=== PATIENT | female | born 1995 | race Caucasian/White ===

== ENCOUNTER 2020-03-14 02:12 | Emergency (ER) | payer OTHER, SELFPAY ==
[2020-03-14 02:36] VITALS: BP 125/85; PULSE 81; RESP 16; TEMP 37.2; O2SAT 100; BMI 22.6
--- NOTE | 2020-03-14 02:38 | ED.CHESTPAIN ---
HPI - Chest Pain General Chief Complaint: Headache Stated Complaint: headache,chest pain Time Seen by Provider: 03/14/20 02:27 Source: patient Mode of arrival: ambulatory Limitations: no limitations History of Present Illness HPI narrative: 24 yo female on progestin only pills has had chest pain for 2 months with negative workup thus far, comes in today with c/o headache L side wrapping a band around to R side no neuro complaints, no fevers, no URI symptoms states the left side of her head hurts to touch MD complaint: chest pain and other (headache) Pertinent past history: other (chronic chest wall pain for months) Onset (ago): month(s) (+ months for chest pain, headache x 1 week) Timing of current episode: constant Prior episodes: Yes Onset: during rest and during exertion Pain location: substernal Pain radiation: none Severity: moderate Quality: aching Relieving factors: nothing Exacerbating factors: nothing Associated symptoms: other (c/o new headache) Treatment prior to arrival: none Related Data Allergies Allergy/AdvReac Type Severity Reaction Status Date / Time coconut [COCONUT] Allergy Unknown HIVES Verified 03/14/20 02:52 peanut [PEANUT] Allergy Unknown HIVES Verified 03/14/20 02:52 Review of Systems Review of Systems: Constitutional : No Weight loss, No Fever, No Chills ENT/Mouth : No sore throat, No Rhinorrhea Eyes: No Eye Pain, No Swelling Cardiovascular : pos Chest Pain, no SOB, no Dyspnea on Exertion, No Orthopnea, No Edema, No Palpitations Respiratory : No Cough, No Sputum Gastrointestinal : no Nausea, No Vomiting, No Diarrhea, No abdominal Pain, No Hematochezia, No Melena Genitourinary : No Dysuria, No Urinary Frequency Musculoskeletal : No joint pain, No Myalgias, No Joint Swelling Skin : No Skin Lesions, No rash Neuro : No Weakness, No Numbness, No Dizziness, pos Headache Psych : No Anxiety/Panic, No Depression Heme/Lymph: No Bruising, No Lymphadenopathy Endocrine : No Polyuria, No Polydipsia All other systems reviewed and are negative [facility] Past Medical History Attestation statement: The following information was validated with the patient. Medical History Chronic chest pain Social History Social History Alcohol intake: never Smoking Status: Never smoker Use of substances other than those prescribed or required for medical reasons: No Advance Directives: No Advance Directives Information Provided: No Physical Exam Vital Signs: Vital Signs: Last Vital Signs Temp 98.9 F 03/14/20 02:36 Pulse 81 03/14/20 02:36 Resp 16 03/14/20 02:36 BP 125/85 03/14/20 02:36 Pulse Ox 100 03/14/20 02:36 Body Mass Index 22.6 Appearance: Alert. Oriented X3. No acute distress. Eyes: Pupils equal, round and reactive to light. ENT: Pharynx normal. Neck: Normal inspection. Neck supple. CVS: Normal heart rate and rhythm. Pulses normal. Chest: ttp along bilateral costochondral junction Respiratory: No respiratory distress. Breath sounds normal. Abdomen: Soft and nontender. Skin: Skin warm and dry. Normal skin color. Normal skin turgor. Extremities: No lower extremity edema. No calf ttp Neuro: Oriented X 3. No motor deficit. No sensory deficit. Course Course Course Narrative: CT scan with abnormal reading - MRI ordered for 9am, signed out pending MRI, CP workup negative MDM - Chest Pain MDM Narrative Medical decision making narrative: 24 yo female with chronic chest wall pain on progestin only pills - MSK in nature, doubt ACS/dissection given duration and no risk factors, PERC negative as she is on progestin only and pain x 2 months, c/o headache x 1 week band like no deficits, no URI symptoms, no AC therapy, normal neuro exam, gradual onset doubt SAH/OVERSIZE LOAD PILOT ESCORT infection, labs, EKG, CT scan ordered, PO medications for symptom relief. Lab Data Labs: Lab Results 03/14/20 03/14/20 03/14/20 Range/Units 03:16 03:16 03:16 ESR 5 (0-20) MM/HR Hold Blue Top SEE NOTE Magnesium 1.9 (1.6-2.6) mg/dL Troponin I High Sens (<3.5-17.0) ng/L Urine Test (NEGATIVE) 03/14/20 03/14/20 Range/Units 03:16 03:16 ESR (0-20) MM/HR Hold Blue Top Magnesium (1.6-2.6) mg/dL Troponin I High Sens < 3.5 (<3.5-17.0) ng/L Urine Test NEGATIVE (NEGATIVE) ECG Data ECG #1: Attestation: I personally reviewed and interpreted this ECG as follows: ECG interpretation date: 03/14/20 ECG interpretation time: 03:02 Interpretation: Rate: 79 Rhythm: NSR [place]: normal Normal P waves. Normal JOSE. Normal QRS complex. ST T wave : normal, no AUBREE qTC: normal prior studies: no acute ischemia The study has been interpreted contemporaneously by me. . Discharge Plan Discharge Clinical Impression: Headache, Chest pain Instructions: Chest Pain (ED), Acute Headache (ED) Additional Instructions: return to ED for any worsening symptoms or concerns Referrals: Sona Hoffman MD [Primary Care Provider] - 3 days (if not better) Stand Alone Forms: Work/School Release
--- NOTE | 2020-03-14 02:46 | CT_ITS ---
EXAMINATION: CT HEAD WITHOUT CONTRAST CLINICAL INFORMATION: Headache COMPARISON: None TECHNIQUE: Contiguous axial imaging was performed from the skull base to vertex without intravenous administration of contrast. This CT examination was performed using dose optimization techniques as appropriate, variously including the following: *Automated exposure control *Adjustment of mA and/or kV according to patient size (this includes techniques or standardized protocols for targeted exams where dose is matched to indication/reason for exam; i.e. extremities or head) *Use of iterative reconstruction technique DLP: 604 mGy-cm FINDINGS: There is no evidence of acute intracranial hemorrhage or territorial infarction. No abnormal mass effect or midline shift is seen. [place] to white matter differentiation is well preserved. No extra-axial fluid collections are identified. The ventricles are normal in size. There is a region of hypoattenuation within the anterior medulla such as seen on image 10/75. The osseous structures and soft tissues are normal. Small mucous retention cyst noted in the left ethmoid air cells. The mastoid air cells are well-aerated. CT/CT head/brain wo con IMPRESSION: 1. No acute intracranial hemorrhage. 2. Region of hypoattenuation within the anterior medulla. It is difficult to determine with certainty whether this is artifactual or secondary to pathology such as edema/ischemic change, and this would be better assessed with MRI.
--- NOTE | 2020-03-14 02:46 | ECG_ITS ---
Test Reason : CHEST PAIN Blood Pressure : / mmHG Vent. Rate : 079 BPM Atrial Rate : 079 BPM P-R Int : 128 ms QRS Dur : 084 ms QT Int : 368 ms P-R-T Axes : 050 034 037 degrees QTc Int : 421 ms Normal sinus rhythm Normal ECG When compared with ECG of 23-OCT-2019 19:39, No significant change was found Referred By: Fatimah Urbina Electronically Signed By:SHEELA ALEXANDER
--- NOTE | 2020-03-14 02:46 | XR_ITS ---
EXAMINATION: XR CHEST CLINICAL INFORMATION: Chest pain COMPARISON: 09/12/2019 TECHNIQUE: Frontal view of the chest was obtained. FINDINGS: Lung volumes are symmetric. No focal consolidation is seen. No evidence of pneumothorax, pleural effusion, or pulmonary edema. The cardiomediastinal contour is unremarkable. No acute osseous findings are seen. XR/XR chest 1V IMPRESSION: No acute cardiopulmonary findings.
[2020-03-14] MEDS: Cyclobenzaprine HCl 10 MG TABLET PO (03:23)
[2020-03-14] MEDS: Butalb/Acetamin/Caff 50/325/40 TABLET 1 TAB PO (03:25)
[2020-03-14 03:28] LABS: UPreg QC Valid YES; Urine Pregnancy NEGATIVE (NEGATIVE)
[2020-03-14 03:51] LABS: Magnesium 1.9 mg/dL (1.6-2.6)
[2020-03-14 03:55] LABS: Troponin-I High Sensitivity < 3.5 ng/L (<3.5-17.0)
[2020-03-14 03:57] LABS: Erythrocyte Sedimentation Rate 5 MM/HR (0-20)
--- NOTE | 2020-03-14 04:12 | MR_ITS ---
MRI OF THE BRAIN WITHOUT IV CONTRAST INDICATION: Headaches. Abnormal CT scan. COMPARISON: Head CT performed earlier the same day. TECHNIQUE: Multiplanar multisequence MR imaging of the brain was obtained without IV contrast. FINDINGS: There is no hydrocephalus, extra-axial surface collection, or herniation. No parenchymal signal abnormality. The previously seen finding on CT within the medulla was artifactual. The major flow voids at the skull base are preserved. There is no acute infarct on diffusion-weighted imaging. There is no intracranial hemorrhage on the gradient recalled echo acquisition. The midline structures are normal. The cerebellar tonsils are normally positioned. The cerebellum and brainstem are normal. The craniocervical junction is normal. Osseous marrow signal intensity is homogenous. The visualized soft tissues are unremarkable. MR/MR head/brain wo con IMPRESSION: The previously seen finding on CT within the medulla was artifactual. There are no acute intracranial findings. No acute infarcts.
--- NOTE | 2020-03-14 04:43 | PC.NURSE ---
[facility] CAT SCAN RESULTS NOTE HYPOATTENUATION OF MEDULLA . pATIENT IS GOING TO STAY FOR MRI IN AM FOR FURTHER IMAGING PER ED PROVIDER. pATIENT AGREES WITH PLAN.
[2020-03-14 06:00] VITALS: BP 102/58; PULSE 74; RESP 15; O2SAT 98
[2020-03-14 07:14] VITALS: BP 105/66; PULSE 82; RESP 16; TEMP 36.7; O2SAT 98
[2020-03-14 09:29] VITALS: BP 110/68; PULSE 82; RESP 16; TEMP 37.1; O2SAT 99
[2020-03-14 12:15] VITALS: BP 105/72; PULSE 73; RESP 16; O2SAT 99
== END 2020-03-14 12:23 | disposition home or self-care (01) ==
PROVIDERS: Emergency Provider Emergency Medicine; PCP Internal Medicine
DX: R51.9 Headache, unspecified (principal); R07.9 Chest pain, unspecified; Z20.822 Contact with and (suspected) exposure to COVID-19
CPT/HCPCS: 36415; 70450; 70551; 71045; 81025; 83735; 84484; 85652; 93005; 99284; 99285

== ENCOUNTER 2021-10-19 11:39 | Emergency (ER) | payer OTHER, MEDICAID, SELFPAY ==
--- NOTE | ~2021-10-19 | XR_ITS ---
EXAMINATION: XR HAND, RIGHT XR HAND, LEFT CLINICAL INFORMATION: Left thumb pain and swelling. Deep laceration at the right first finger. Wrist deformity. COMPARISON: None TECHNIQUE: PA, lateral, and oblique views of each hand. FINDINGS: RIGHT HAND: There is a comminuted intra-articular distal radial fracture with dorsal impaction and dorsal tilt of the distal radial articular surface. Dorsal angulation of the distal radial articular surface measures 32 degrees . Soft tissues are swollen. There is a transverse fracture through the base of the ulnar styloid with distraction of the fracture fragment by 3 mm. Joint spaces are well-preserved. No erosions. Bone mineralization is normal. No radiodense foreign bodies. LEFT HAND: No fracture. Alignment is anatomic. Joint spaces are maintained. No erosions or soft tissue calcifications. No radiodense foreign bodies. No subcutaneous gas. XR/XR hand LT min 3V IMPRESSION: Comminuted intra-articular right distal radial fracture with dorsal impaction and dorsal tilt of the distal radial articular surface. Transverse fracture through the right ulna styloid. No acute findings at the left hand.
--- NOTE | ~2021-10-19 | XR_ITS ---
EXAMINATION: XR HAND, RIGHT XR HAND, LEFT CLINICAL INFORMATION: Left thumb pain and swelling. Deep laceration at the right first finger. Wrist deformity. COMPARISON: None TECHNIQUE: PA, lateral, and oblique views of each hand. FINDINGS: RIGHT HAND: There is a comminuted intra-articular distal radial fracture with dorsal impaction and dorsal tilt of the distal radial articular surface. Dorsal angulation of the distal radial articular surface measures 32 degrees . Soft tissues are swollen. There is a transverse fracture through the base of the ulnar styloid with distraction of the fracture fragment by 3 mm. Joint spaces are well-preserved. No erosions. Bone mineralization is normal. No radiodense foreign bodies. LEFT HAND: No fracture. Alignment is anatomic. Joint spaces are maintained. No erosions or soft tissue calcifications. No radiodense foreign bodies. No subcutaneous gas. XR/XR hand wrist RT IMPRESSION: Comminuted intra-articular right distal radial fracture with dorsal impaction and dorsal tilt of the distal radial articular surface. Transverse fracture through the right ulna styloid. No acute findings at the left hand.
--- NOTE | ~2021-10-19 | XR_ITS ---
EXAMINATION: XR WRIST, RIGHT CLINICAL INFORMATION: Post reduction COMPARISON: Same day study TECHNIQUE: Three views of the right wrist. FINDINGS: There remains ventral angulation fracture apex. Mild a better approximated. Continued distraction with distraction of fracture fragments and impaction. Ulnar styloid fracture appears unchanged in position. XR/XR wrist RT 2V IMPRESSION: Casted fracture right wrist there remains ventral angulation at the fracture apex and impaction
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
[2021-10-19] MEDS: Ibuprofen 800 MG TABLET PO (12:10)
[2021-10-19 12:17] VITALS: BP 162/94; PULSE 100; O2SAT 100
[2021-10-19 12:18] VITALS: BP 115/67; PULSE 71; RESP 18; TEMP 36.9; O2SAT 98; BMI 27.6
[2021-10-19] MEDS: Ondansetron ODT 4 MG TAB.RAPDIS TRANSLINGU (12:49)
[2021-10-19] MEDS: oxyCODONE HCl Immed Release 5 MG TABLET PO (12:53)
[2021-10-19] MEDS: Lidocaine HCl 2 % MPF 5 ML VIAL 2 ML INFILTRATI ×2 (12:54)
[2021-10-19] MEDS: Lidocaine HCl 2 % 20 ML VIAL INFILTRATI (14:28)
== END 2021-10-19 15:21 | disposition home or self-care (01) ==
PROVIDERS: Emergency Provider Emergency Medicine
DX: S52.611A Displaced fracture of right ulna styloid process, initial encounter for closed fracture (principal); S52.501A Unspecified fracture of the lower end of right radius, initial encounter for closed fracture; S61.011A Laceration without foreign body of right thumb without damage to nail, initial encounter; M25.532 Pain in left wrist; M25.531 Pain in right wrist; V43.52XA Car driver injured in collision with other type car in traffic accident, initial encounter; Y93.9 Activity, unspecified; Y92.410 Unspecified street and highway as the place of occurrence of the external cause; Y99.9 Unspecified external cause status; Z79.899 Other long term (current) drug therapy
CPT/HCPCS: 12002; 25605; 29125; 73100; 73110; 73130; 99284

== ENCOUNTER 2021-10-20 20:47 | Emergency (ER) | payer MEDICAID, SELFPAY ==
[2021-10-20 21:27] VITALS: BMI 25.8
--- NOTE | 2021-10-20 21:29 | ED_ITS ---
HPI - General Adult General Chief complaint: Extremity Injury, Upper Stated complaint: hand swelling Time Seen by Provider: 10/20/21 21:29 Source: patient Mode of arrival: ambulatory Limitations: no limitations History of Present Illness HPI narrative: Patient is a 25 year old female presenting to the emergency department today with numbness and tingling to her right finger tips. Patient states that y esterday, she broke her right wrist and was splinted here and now she is having issues with numbness and tingling to the right fingers. Patient denies any dizziness, lightheadedness, abdominal pain, nausea, vomiting, fever, chills, blurry vision, double vision, loss of vision, chest pain, difficulty breathing, shortness of breath, back pain, night sweats, pain with urination, increased urinary frequency, increased urinary urgency, blood in her urine or stool, syncope or a near syncopal episode, bowel incontinence, bladder incontinence, bowel retention, bladder retention, or any other complaints at this time. Onset (ago): hour(s) Location: right and upper extremity Radiation: non-radiation Severity: mild Severity scale (1-10): 2 Pain Consistency: constant Relieving factors: none Exacerbating factors: none Associated symptoms: denies other symptoms Treatments prior to arrival: none Related Data Previous Rx's Medication Instructions Recorded acetaminophen 500 mg tablet 500 mg PO Q6H PRN fever or pain 10/19/21 (Tylenol Extra Strength) #14 tabs ibuprofen 800 mg tablet 800 mg PO Q8H PRN pain #14 tabs 10/19/21 Allergies Allergy/AdvReac Type Severity Reaction Status Date / Time coconut [COCONUT] Allergy Unknown HIVES Verified 03/14/20 02:52 peanut [PEANUT] Allergy Unknown HIVES Verified 03/14/20 02:52 Review of Systems Constitutional: Constitutional: Reports no additional constitutional complaints, Denies chills, Denies fever(s) and Denies night sweats Eyes: Eyes: Reports no additional eye complaints, Denies blurry vision, Denies change in vision, Denies diplopia, Denies eye discharge, Denies loss of vision and Denies eye pain ENT: Denies dizziness Cardiovascular: Cardiovascular: Reports no additional cardiovascular complaints, Denies chest pain, Denies lightheadedness, Denies Loss of Consc iousness and Denies dyspnea Respiratory: Respiratory: Reports no additional respiratory complaints and Denies dyspnea Gastrointestinal: Gastrointestinal: Reports no additional gastrointestinal complaints, Denies abdominal pain, Denies melena, Denies hematochezia, Denies change in bowel habits and Denies change in stool character Genitourinary: Genitourinary: Denies hematuria, Denies urinary frequency, Denies dysuria, Denies urinary incontinence, Denies urinary hesitancy and Denies urinary urgency Musculoskeletal: Musculoskeletal: Reports no additional musculoskeletal complaints Comments: right fingers numb and tingling Neurologic: Denies dizziness and Denies loss of vision Psychiatric: Psychiatric: Reports no additional psychiatric complaints Endocrine: Endocrine: Reports no additional endocrine complaints Hematologic/Lymphatic: Hematologic/Lymphatic: Reports no additional hematologic/lymphatic complaints Allergic/Immunologic: Allergic/Immunologic: Reports no additional allergic/immunologic complaints PMFSH Past Medical History Attestation statement: The following information was validated with the patient. Source: old records reviewed Medical History Chronic chest pain Social History Social History Alcohol intake: never Advance Directives: No Advance Directives Information Provided: Yes Physical Exam ED Vital Signs: Vital Signs - 24 hr 10/20/21 21:57 Temperature 98.1 F Pulse Rate 69 Respiratory Rate 16 Blood Pressure 118/77 Pulse Oximetry 100 Oxygen Delivery Method Room Air BMI result Body Mass Index 25.8 Const General: cooperative, no acute distress, alert and awake Nutritional Appearance: well nourished Orientation/consciousness: patient oriented x3 Limitations: no limitations [facility] Head: Yes normal to inspection and Yes atraumatic Ears: hearing grossly normal bilaterally and external ears normal General nose exam: Normal external nose present, no nasal discharge noted and no epistaxis Face and sinus: Yes normal facial exam, No abrasion and No laceration Mouth: Normal oral and palatal mucosa present, no drooling and no muffled voice Eyes General: appearance normal, both eyes and all related structures Periorbital: periorbital findings normal Eyelids: Yes eyelids normal Conjunctivae: conjunctivae normal Pupils: Equal, round and reactive pupils present EOM: EOMs intact bilaterally Neck Neck: Yes normal visual inspection, Yes full ROM and Yes no lymphadenopathy Chest Chest palpation & inspection: normal inspection of the chest Resp Effort & Inspection: normal respiratory effort and able to speak in complete sentences Auscultation: clear to auscultation bilaterally Cardio Rate: regular rate Rhythm: regular rhythm GI Inspection: Yes normal to inspection Neuro General: patient oriented x3 and moves all extremities Cranial nerves: Yes Equal, round and reactive pupils present Cognition (Neuro): normal cognition Motor exam (neuro): 5/5 motor strength present throughout Sensory Exam: Normal double simultaneous stimulation for sensation Coordination: [id number] test normal Extrem Other: right wrist in sugar tong splint, ROM of fingers present General: Yes capillary refill normal Psych Appearance: grossly normal Mental Status: mental status grossly normal Affect: normal affect Attitude: cooperative Thought process: Normal thought process present Thought content: Normal thought content present Insight: Good insight present (Psych) Procedures Orthopedic Splinting/Casting Injury #1: Side: right Upper Extremity Injury Location: wrist Upper Extremity Immobilizer: sling/shoulder immobilizer and sugar tong splint Medical Decision Making MDM Narrative Medical decision making narrative: Patient is a 25 year old female presenting to the emergency department today with right finger numbness and tingling. Patient's physical exam showed a sugar tong splint present to the right wrist however, patient's ROM, circulation, strength, and sensation was present to the right fingers. I explained my physical exam findings to the patient. I answered all questions asked by the patient. Patient's splint was redone with more loose jesu wrap. Patient stated that resolved her numbness and tingling entirely. I stressed the importance of the patient taking her medication as prescribed. I stressed the importance of the patient following up with her primary care provider and an orthopedic provider. I stressed the importance of the patient returning to the emergency department immediately if her symptoms were to worsen or if she were to develop any dizziness, shortness of breath, difficulty breathing, chest pain, blurry vision, loss of vision, nausea, vomiting, abdominal pain, fever, chills, back pain, or any other complaints. Patient verbalized agreement and understanding with this treatment plan and discharge. Medical Records Medical records reviewed: Yes I reviewed the patient's medical records. Discharge Plan Discharge Clinical Impression: Cast discomfort Patient Disposition: Home, Self-Care Instructions: Cast Care (ED) Additional Instructions: If you start to lose feeling in your fingers or they start to feel colder than usual, LOOSEN THE JESU WRAP on your splint. Follow up with your primary care provider and an orthopedic provider. Return to the emergency department immediately if your symptoms worsen or if you develop any dizziness, shortness of breath, difficulty breathing, chest pain, blurry vision, loss of vision, nausea, vomiting, abdominal pain, fever, chills, back pain, or any other complaints. Prescriptions: No Action ibuprofen 800 mg tablet 800 mg PO Q8H PRN (Reason: pain) Qty: 14 0RF acetaminophen [Tylenol Extra Strength] 500 mg tablet 500 mg PO Q6H PRN (Reason: fever or pain) Qty: 14 0RF Referrals: [facility] – [place] Orth[facility] Surgeons [Provider Group] Sona Hoffman MD [Primary Care Provider] - Print Language: Citizen [place]
[2021-10-20 21:57] VITALS: BP 118/77; PULSE 69; RESP 16; TEMP 36.7; O2SAT 100
[2021-10-20] MEDS: HYDROcodone Bit/Acetam 5/325 TABLET 1 TAB PO (22:04)
== END 2021-10-20 23:34 | disposition home or self-care (01) ==
PROVIDERS: Emergency Provider Emergency Medicine Emergency Medical Services; PCP Internal Medicine
DX: R20.2 Paresthesia of skin (principal); S62.101D Fracture of unspecified carpal bone, right wrist, subsequent encounter for fracture with routine healing; X58.XXXD Exposure to other specified factors, subsequent encounter
CPT/HCPCS: 99283

== ENCOUNTER 2021-10-25 09:11 | Outpatient (REF) | payer MEDICAID, SELFPAY ==
--- NOTE | ~2021-10-25 | XR_ITS ---
EXAMINATIONS: XR HAND, RIGHT XR WRIST, RIGHT CLINICAL INFORMATION: Right hand and wrist pain. COMPARISON: October 19, 2021. TECHNIQUES: PA, lateral, and oblique views of the right hand. PA, lateral, and oblique views of the right wrist. XR/XR wrist RT min 3V FINDINGS/IMPRESSION: Examination of the wrist is somewhat limited, as no true frontal view is submitted. There has been no gross significant radiographic change compared with October 19, 2021. Examination again demonstrates a nondisplaced, oblique fracture involving the mid to distal diaphysis of the fifth metacarpal bone. There is a comminuted, impacted fracture involving the distal end of the radius, with at least one of the fracture planes extending to the joint space. There is dorsal angulation of the main distal fragment relative to the main proximal fragment. The fracture fragments override by approximately 0.5 cm. The main distal fragments are displaced dorsally approximately one third bone shaft's width relative to proximal fragment. There is an avulsion fracture of the ulnar styloid. No bony callus formation is appreciated. Soft tissue swelling involves the distal forearm.
--- NOTE | ~2021-10-25 | XR_ITS ---
EXAMINATIONS: XR HAND, RIGHT XR WRIST, RIGHT CLINICAL INFORMATION: Right hand and wrist pain. COMPARISON: October 19, 2021. TECHNIQUES: PA, lateral, and oblique views of the right hand. PA, lateral, and oblique views of the right wrist. XR/XR hand RT min 3V FINDINGS/IMPRESSION: Examination of the wrist is somewhat limited, as no true frontal view is submitted. There has been no gross significant radiographic change compared with October 19, 2021. Examination again demonstrates a nondisplaced, oblique fracture involving the mid to distal diaphysis of the fifth metacarpal bone. There is a comminuted, impacted fracture involving the distal end of the radius, with at least one of the fracture planes extending to the joint space. There is dorsal angulation of the main distal fragment relative to the main proximal fragment. The fracture fragments override by approximately 0.5 cm. The main distal fragments are displaced dorsally approximately one third bone shaft's width relative to proximal fragment. There is an avulsion fracture of the ulnar styloid. No bony callus formation is appreciated. Soft tissue swelling involves the distal forearm.
== END 2021-10-25 09:12 | disposition home or self-care (01) ==
LOC: HO.HOSX 09:11
PROVIDERS: Visit Provider Orthopaedic Surgery
DX: Z01.818 Encounter for other preprocedural examination (principal); S52.501A Unspecified fracture of the lower end of right radius, initial encounter for closed fracture; S62.326A Displaced fracture of shaft of fifth metacarpal bone, right hand, initial encounter for closed fracture; S62.614A Displaced fracture of proximal phalanx of right ring finger, initial encounter for closed fracture; S52.611A Displaced fracture of right ulna styloid process, initial encounter for closed fracture; G56.01 Carpal tunnel syndrome, right upper limb
CPT/HCPCS: 73110; 73130; 99202

== ENCOUNTER 2021-10-27 07:57 | Day surgery (SDC) | payer MEDICAID, SELFPAY ==
[2021-10-27] VITALS (10 sets, daily range): BP systolic 105–122; BP diastolic 60–78; PULSE 62–92; RESP 12–16; TEMP 36.2–37; O2SAT 94–96; BMI 25.8
--- NOTE | ~2021-10-27 | FL_ITS ---
EXAMINATION: XR FLUOROSCOPY WITH IMAGES CLINICAL INFORMATION: Fracture right wrist. Reduction. COMPARISON: Radiographs right hand and wrist 10/25/2021 TECHNIQUE: Fluoroscopy performed by Dr. Amira Apodaca. Fluoroscopy time: 1 minute. Cumulative Dose: 1.5513 mGy. DAP: 0.938 Gy-cm2. Images: 12. FINDINGS: Comminuted distal right radial fracture is reduced with dorsal side plate and multiple screws. Fracture fragments are in near-anatomic alignment. Hardware is intact. There is no dislocation. Fracture a ulnar styloid again noted. The fifth metacarpal fracture is not clearly visualized on the spot views. FL/FL guidance in OR IMPRESSION: Open reduction internal fixation comminuted fracture distal right radius and near-anatomic alignment. Hardware intact.
[2021-10-27 08:49] LABS: UPreg QC Valid YES; Urine Pregnancy NEGATIVE (NEGATIVE)
[2021-10-27] MEDS: Lactated Ringers 1,000 ML 100 ML IVCONT (08:52)
--- NOTE | 2021-10-27 09:13 | HO.ANESPROP2 ---
HPI - Anesthesia Eval Consult details Narrative: 25 yo female patient for ORIF Right distal radius fracture, possible ulnar ORIF, Right carpal tunnel release PMFSH Active Problems Active Problems: All Active Problems (Updated 10/25/21 @ 12:43 by Amira Apodaca MD) Fracture of right ulnar styloid (Acute) Fracture of proximal phalanx of right ring finger (Acute) Closed fracture of shaft of fifth metacarpal bone of right hand (Acute) Carpal tunnel syndrome of right wrist (Acute) Distal radius fracture, right (Acute) Past Medical History Medical History (Updated 10/27/21 @ 09:52 by Kena Mcallister MD) Chronic chest pain Family History Family history of problems with anesthesia: No Surgical History History of Problems with Anesthesia: No (No previous surgery ) Social History Social History Alcohol intake: never Patient Tobacco Use Status: Never used Tobacco Use of substances other than those prescribed or required for medical reasons: No Are you DNR?: No Advance Directives: No Advance Directives Information Provided: Yes Recently lost weight without trying: No Patient : No (ucg neg) Current occupation: [employer], [employer], rt hand Meds Allergies Allergy/AdvReac Type Severity Reaction Status Date / Time coconut [COCONUT] Allergy Unknown HIVES Verified 10/25/21 10:56 peanut [PEANUT] Allergy Unknown HIVES Verified 10/25/21 10:56 Active Medications: Current Medications Lactated Ringer's (Lr) 1,000 mls @ 100 mls/hr IVCONT .Q10H AMANDA Last Admin: 10/27/21 08:52 Dose: 100 mls/hr Home Medications Medication Instructions Recorded Confirmed Last Taken Type escitalopram oxalate 20 mg tablet 20 mg PO DAILY 10/25/21 Unknown History norgestimate 0.18 mg/0.215 mg/0.25 1 tab PO DAILY 10/25/21 Unknown History mg-ethinyl estradiol 25 mcg tablet ([id number]) Exam Exam Date and Time: October 27, [id number] Height,Weight and Vital Signs: Height 5 ft 6 in Weight 72.575 kg Last Vital Signs Temp 98.6 F 10/27/21 08:28 Pulse 76 10/27/21 08:28 Resp 16 10/27/21 08:28 BP 108/67 10/27/21 08:28 Pulse Ox 96 10/27/21 08:28 O2 Del Method 10/27/21 08:28 Pertinent Lab Results Pertinent Lab Results: Laboratory Tests 10/27/21 08:03 Urine Test NEGATIVE Airway Mallampati Class: I TM Dist: >3cm Neck ROM: Full Loose/Missing/Broken Teeth: No Heart: RRR Lungs: CTAB Assessment and Plan Assessment Anesthesia Assessment: Anesthesia Plan Discussed and Chart Reviewed Final Anesthetic Review Family History of Problems with Anesthesia: No History of Problems with Anesthesia: No (No previous surgery ) NPO: Yes ASA Class: II Final Preanesthetic Review: No Changes in Pt Med Stat, Meds/Allgs Chart Reviewed, Consent Obtained/Reviewed and Anes Risks/Benef Reviewed Patient Risk: Low Procedure Risk: Low Assessment/Block/Sedation in SS: Assess/Block/Sedation-SS Anesthetic Plan Anesthetic Plan: GA and Regional Block (Right supraclavicular nerve block) Disposition: Standard PACU
--- NOTE | 2021-10-27 10:04 | P.OP_ITS ---
Operative Note Operative Note Date of Service: 10/27/21 Narrative: Operative Note Narrative: Preop diagnosis: 1. Right Distal radius fracture, comminuted intra-articular 2. Right carpal tunnel syndrome 3. Right ulnar styloid base fracture 4. Right Nondisplaced 5th metacarpal shaft fracture 5. Right nondisplaced ring finger proximal phalanx shaft fracture Postop diagnosis: Same Procedure: 1. Right Distal radius fracture open reduction internal fixation, three-part intra-articular 2. Right carpal tunnel release Surgeon: Amira Apodaca MD Anesthesia: General anesthesia plus regional block Findings: 3 part intra-articular comminuted intra-articular distal radius fracture. DRUJ stable after stabilization of the distal radius fracture. Postop radiographs of the 5th metacarpal and ring finger showed no displacement of these fractures at the end of the case. Implants: A 3 hole Accu Med volar locking plate, with Five X 2.3 mm locking pegs/screws, and 3 3.5 mm cortical screws Tourniquet time: 91 minutes EBL: 5.0 ml Specimen: None Drains: None Complications: None Disposition: Brought to the recovery room in stable condition Plan: Follow-up in 10-14 days for wound check, suture removal and postop radiographs The patient will be placed in either a short-arm cast Encouraged no lifting of anything heavier than a cell phone. Please encourage active and passive range of motion of the digits. Follow-up at 4-5 weeks postop for repeat radiographs. the 5th metacarpal shaft fracture in the right ring finger proximal phalanx fracture Are both going to be managed non operatively. Indications: The patient is a [age] year old woman with a right distal radius fracture / ulnar styloid fracture and numbness in the median nerve distribution . The risks and benefits of operative treatment, including but not limited to risk of damage to blood vessels, nerves, tendons, infection, recurrence, persistent pain or numbness, incomplete resolution of preoperative symptoms, or need for further surgery were discussed with the patient and they wished to proceed with surgery. Procedure: Once consent was obtained patient was brought back to the operating suite and placed in the operating table in a supine position. A regional block was performed by the anesthesia team. Perioperative antibiotics and anesthesia was administered by the anesthesia team. A tourniquet was applied to the proximal aspect of the right upper extremity and the limb was prepped and draped in a standard surgical fashion. The limb was elevated exsanguinated with Esmarch bandage and the tourniquet inflated to 250 mm of mercury for a total tourniquet time of 91 minutes. Once assured that we had a good block, a 2.0 cm longitudinal incision was made centered over the right carpal tunnel. The incision was made through the skin to the subcutaneous tissues using a #15 blade. Dissection was made down to the level of the transverse carpal ligament with care being taken to protect the palmar cutaneous nerve. Once the transverse carpal ligament was clearly visualized, a longitudinal incision was made in the transverse carpal ligament 1st using a #15 blade, then using tenotomy scissors under direct visualization. Care was taken to look for and protect the motor branch of the median nerve when seen in this area. Once satisfied with our carpal tunnel release the wound was irrigated with normal saline. The FluoroScan was used throughout the case to assess our reduction, and facilitate implant placement. A gentle closed reduction was 1st performed on the patient's right distal radius fracture. Was assessed radiographically before proceeding with the reduction internal fixation. I then made an 8 cm longitudinal incision over the distal aspect of the flexor carpi radialis tendon. The incision was made through the skin to the subcutaneous tissue using a 15. Blade. Then carefully dissected down to flexor carpi radialis tendon she tenotomy scissors. The FCR tendon sheath was then incised longitudinally using tenotomy scissors under direct visualization. The FCR tendon was then retracted ulnarly. I then made a longitudinal incision in the volar forearm fascia through the floor of FCR tendon sheath using tenotomy scissors under direct visualization. I identified the interval between the radial artery and the flexor tendons. This interval was developed further with my index finger, rel easing some of the muscular fibers of the flexor pollicis longus. A dull weatlander retractor was then placed. I then created an ulnarly based flap of the pronator quadratus by releasing the radial and distal edges using a 15. Blade. A Meza elevator was used to elevate the pronator quadratus from the volar surface of the distal radius. This then revealed to us our distal radius fracture. this is a comminuted intra-articular distal radius fracture. The radial styloid fragment was noted to be translated more posteriorly and radially then the lunate facet fragment. I performed a release of the brachial radialis tendon from the radial styloid fragment to facilitate our open reduction. This was done by isolating this tendon and releasing it using iris scissors. Care was taken to protect the 1st dorsal compartment tendons. An open reduction was then performed on our distal radius fracture. This was then provisionally secured with a 0.062 K-wire placed obliquely through the radial styloid extending proximally in obliquely into the shaft of the radius. I trialed a short standard locking plate, but felt that it was too broad. I then placed a short narrow 3 hole Accu Med volar locking plate on the volar surface of the distal radius. I placed a single K-wire through the distal aspect of the plate and into the distal radius. This was assessed using fluoroscopic images. I was satisfied with the placement of our plate. I then placed Five X 2.3 mm locking screws/pegs in the distal aspect of the plate and distal radius by 1st drilling bicortically with a 1.8 mm drill bit, measuring with a depth gauge, and placing the appropriate length locking screws/pegs. The placement of our plate and screws was then assessed again using fluoroscopic images. The once satisf ied with the placement of the volar locking plate and screws on the distal aspect of the distal radius, the 0.062 K-wire was removed and the plate was then reduced to the shaft of the radius. I then placed 3 3.5 mm cortical screws to the proximal aspect of the plate and into the shaft of the radius. This was done by 1st drilling bicortically with a 2.8 mm drill bit, measuring with a depth gauge, and placing the appropriate length screw. Final radiographs were then obtained. The DRUJ was assessed and found to be stable on exam. I was satisfied with our reduction and placement of all implants. radiographs of the patient's right hand were also obtained to assure that we had no displacement of the 5th metacarpal fracture or the fracture of the ring finger proximal phalanx. At this point the Wounds wereirrigated with normal saline. The pronator quadratus was reduced back over the volar locking plate using some 3-0 Vicryl suture material. The tourniquet was then deflated and hemostasis was obtained with a brief period of local pressure and bipolar monopolar electrocautery. The subcutaneous layer was then reapproximated using some 4-0 Vicryl suture, and the skin edges were reapproximated using some 5 0 Prolene suture. The wound was then infiltrated with some 0.5% plain ropivacaine postop pain control. A sterile dressing and a short dorsal splint allowing for active flexion and extension of the digits was applied. The patient appears to have tolerated the procedure well and with no complications. All digits were well vascularized conclusion of the case.
--- NOTE | 2021-10-27 10:04 | MHC.SHP ---
Pre-Procedural Eval Section A Date of Service: 10/27/21 The patient is an INPATIENT: No Changes since office visit: No Cold of Flu in the past 2 weeks, No New Medical Problems, No Changes in Medication and No Patient answered all questions The History & Physical has been completed within 30 days and I have reviewed it.: Yes Section B Chief Complaint: distal radius fx,carpal tunnel Allergies: Allergies Allergy/AdvReac Type Severity Reaction Status Date / Time coconut [COCONUT] Allergy Unknown HIVES Verified 10/25/21 10:56 peanut [PEANUT] Allergy Unknown HIVES Verified 10/25/21 10:56 Plan I have reviewed the history and physical and performed a pertinent physical examination on my patient. No changes have occurred unless specified.
== END 2021-10-27 14:58 | disposition home or self-care (01) ==
PROVIDERS: Nurse Practitioner; PCP Internal Medicine; Visit Provider Orthopaedic Surgery
PROC: (CPT 25609; principal; 2021-10-27 09:40)
DX: S52.571A Other intraarticular fracture of lower end of right radius, initial encounter for closed fracture (principal); G56.01 Carpal tunnel syndrome, right upper limb; S52.614A Nondisplaced fracture of right ulna styloid process, initial encounter for closed fracture; S62.326A Displaced fracture of shaft of fifth metacarpal bone, right hand, initial encounter for closed fracture; S62.614A Displaced fracture of proximal phalanx of right ring finger, initial encounter for closed fracture; R20.0 Anesthesia of skin; V43.52XA Car driver injured in collision with other type car in traffic accident, initial encounter; Y93.89 Activity, other specified; Y92.410 Unspecified street and highway as the place of occurrence of the external cause; Y99.8 Other external cause status; R07.89 Other chest pain
CPT/HCPCS: 25609; 64721; 81025; C1713; C1769; J1100; J2250; J2405; J2795; J3010

== ENCOUNTER 2021-11-02 16:57 | Emergency (ER) | payer MEDICAID, SELFPAY ==
[2021-11-02 17:06] VITALS: BP 124/84; PULSE 75; RESP 18; TEMP 37.2; O2SAT 98; BMI 26.6
--- NOTE | 2021-11-02 17:19 | ED.GENADULT ---
HPI - General Adult General Chief complaint: General Medical Stated complaint: Suture Removal Time Seen by Provider: 11/02/21 17:07 Source: patient Mode of arrival: ambulatory Limitations: no limitations History of Present Illness HPI narrative: 25-year-old female presenting to the emergency department requesting suture removal, patient has 3 sutures to the right 1st webspace. Patient had carpal tunnel surgery on 10/27/2021 was told to return in 7-10 days for suture removal however today states 15 as she patient did have surgery and she was told to come after the surgery. Denies any fevers, chills, numbness, tingling, severe pain, nausea, vomiting. Related Data Home Medications Medication Instructions Recorded Confirmed escitalopram oxalate 20 mg tablet 20 mg PO DAILY 10/25/21 norgestimate 0.18 mg/0.215 mg/0.25 1 tab PO DAILY 10/25/21 mg-ethinyl estradiol 25 mcg tablet (Nhf-Mr-Vweowc) Previous Rx's Medication Instructions Recorded acetaminophen 500 mg tablet 500 mg PO Q6H PRN fever or pain 10/19/21 (Tylenol Extra Strength) #14 tabs ibuprofen 800 mg tablet 800 mg PO Q8H PRN pain #14 tabs 10/19/21 ibuprofen 600 mg tablet 600 mg PO Q6-8H PRN pain #30 tabs 10/27/21 oxycodone-acetaminophen 5 mg-325 1 - 2 tab PO Q6H PRN pain #30 tabs 10/27/21 mg tablet Allergies Allergy/AdvReac Type Severity Reaction Status Date / Time coconut [COCONUT] Allergy Unknown HIVES Verified 10/25/21 10:56 peanut [PEANUT] Allergy Unknown HIVES Verified 10/25/21 10:56 Review of Systems Review of Systems: Constitutional : No Fever, No Chills, Cardiovascular : No Chest Pain, No SOB Respiratory : No Dyspnea Gastrointestinal : No abdominal pain Musculoskeletal : No Joint Swelling Skin : No rash, positive skin laceration Neuro : No Weakness, No Numbness Psych : No SI/HI Yes all other systems are reviewed and are negative [facility] Past Medical History Attestation statement: The following information was validated with the patient. Source: old records reviewed and nursing notes reviewed Medical History Chronic chest pain Social History Social History Alcohol intake: never Patient Tobacco Use Status: Never used Tobacco Advance Directives: No Advance Directives Information Provided: No Current occupation: [employer], rt hand Physical Exam ED Vital Signs: Vital Signs - 24 hr 11/02/21 17:06 Temperature 98.9 F Pulse Rate 75 Respiratory Rate 18 Blood Pressure 124/84 Pulse Oximetry 98 Oxygen Delivery Method Room Air BMI result Body Mass Index 26.6 vss Appearance: Alert.? Oriented X3.? No acute distress.? Head: Normocephalic, atraumatic, no step-offs or deformities Eyes: Pupils equal, round and reactive to light.? CVS: Normal heart rate and rhythm.? Pulses normal.? Respiratory: No respiratory distress.? Breath sounds normal.? Abdomen: Soft and nontender.? Skin: Skin warm and dry.? Normal skin color.? Normal skin turgor.? Extremities:5/5 strength to bilateral upper and lower extremities normal sensation to all digits to right hand. There is [address] to the 1st webspace of the right hand, no signs of infection, erythema or, calor, discharge or wound dehiscence. Wound is nicely healing. 2+ radial pulses equal bilateral. No wrist drop . Neuro: Oriented X 3.? No motor deficit.? No sensory deficit. CN 2-12 intact Course Reevaluation(s) Reevaluation #1: Sutures were successfully removed, 3 of them. Patient tolerated procedure well. Advised to follow-up with her PCP and follow-up with hand surgeon. At this time patient will be discharged home. Comfortable discharge Time: 17:22 Medical Decision Making [facility] Narrative Medical decision making narrative: 1710 25-year-old female presents for suture removal. Denies any medical complaints at this time. Physical examination with a healing laceration to the right 1st webspace, with 3 intact sutures. No overlying signs of infection. Plan at this time is suture removal. Medical Records Medical records reviewed: Yes I reviewed the patient's medical records. Lab Data Lab results reviewed: Yes I reviewed the patient's lab results. Critical Care Time Critical Care Time Critical Care Time: No Discharge Plan Discharge Clinical Impression: Visit for suture removal Patient Disposition: Home, Self-Care Additional Instructions: Take your medications as prescribed. If you were prescribed antibiotics today, it is important that you take your medication to their entirety, do not skip any doses, do not finish them early. Follow-up with your primary care provider this week. Return to the emergency department with new or worsening symptoms. Such as fevers, chills, chest pain, shortness of breath, nausea, vomiting, dizziness, headache, vision changes, lethargy In case of emergency call 911 Prescriptions: No Action oxycodone-acetaminophen 5-325 mg tablet 1 - 2 tab PO Q6H PRN (Reason: pain) Qty: 30 0RF Rx Instructions: Partial Fill upon patient request. ibuprofen 600 mg tablet 600 mg PO Q6-8H PRN (Reason: pain) Qty: 30 0RF ibuprofen 800 mg tablet 800 mg PO Q8H PRN (Reason: pain) Qty: 14 0RF acetaminophen [Tylenol Extra Strength] 500 mg tablet 500 mg PO Q6H PRN (Reason: fever or pain) Qty: 14 0RF norgestimate-ethinyl estradiol [Xmy-Ar-Rqhioz] 0.18/0.215/0.25 mg-25 mcg tablet 1 tab PO DAILY escitalopram oxalate 20 mg tablet 20 mg PO DAILY Referrals: Sona Hoffman MD [Primary Care Provider] - 2 days Interventions: ED Discharge Assessment Last Done: 11/02/21 17:11 Discharge Date/Time: 11/02/21 17:19
== END 2021-11-02 17:19 | disposition home or self-care (01) ==
LOC: HO.ED 17:17
PROVIDERS: Emergency Provider Emergency Medicine Emergency Medical Services; PCP Internal Medicine
DX: Z48.02 Encounter for removal of sutures (principal)
CPT/HCPCS: 99282; 99283

== ENCOUNTER 2021-11-09 10:53 | Outpatient (REF) | payer MEDICAID, SELFPAY ==
--- NOTE | ~2021-11-09 | XR_ITS ---
EXAMINATION: XR WRIST, RIGHT CLINICAL INFORMATION: Right wrist pain. COMPARISON: Most recent right hand and wrist radiographs dated 10/25/2021. TECHNIQUE: PA, lateral, and oblique views of the right wrist. FINDINGS: Interval placement of a volar stabilization plate and fixation screws at the distal radius with improved anatomic alignment of the comminuted distal radial fracture. Redemonstration of a mildly displaced ulnar styloid fracture with improved anatomic alignment. Partially visualized fractures within the 4th proximal phalanx and 5th metacarpal, unchanged. Mild circumferential soft tissue swelling. No hardware fracture or perihardware lucency to suggest loosening or infection. XR/XR wrist RT min 3V IMPRESSION: Distal radial ORIF without evidence of hardware complication. Comminuted distal radial fracture in near-anatomic alignment. Improved anatomic alignment of the ulnar styloid fracture. Nondisplaced 4th proximal phalangeal and 5th metacarpal fractures in anatomic alignment.
== END 2021-11-09 10:54 | disposition home or self-care (01) ==
LOC: HO.HOSX 10:53
PROVIDERS: Visit Provider Orthopaedic Surgery
DX: M25.531 Pain in right wrist (principal)
CPT/HCPCS: 73110

== ENCOUNTER 2021-11-29 17:21 | Outpatient (REF) | payer MEDICAID, SELFPAY ==
--- NOTE | ~2021-11-29 | XR_ITS ---
EXAMINATION: XR RIGHT HAND XR RIGHT WRIST CLINICAL INFORMATION: Pain right and and right wrist. COMPARISON: Right wrist 11/09/2021. TECHNIQUE: 3 views right hand. 3 views right wrist. FINDINGS: Right Wrist: There is a volar plate and screws stabilizing a comminuted intra-articular distal radial fracture in alignment. There is a ulnar styloid process fracture which is stable as well. The carpometacarpal joint spaces are preserved. The intercarpal joint spaces are normal. Right Hand: There is nondisplaced oblique fractures involving the mid and distal 5th metacarpal and 4th proximal phalanx. No additional fracture seen.. The joint spaces are maintained normal. The soft tissues are normal. XR/XR hand RT min 3V IMPRESSION: 1. Comminuted distal radial fracture stabilized following distal radial ORIF. This is stable compared to last study 11/09/2021. 2. Ulnar styloid process displaced fracture is stable as well. . 3. Stable nondisplaced oblique proximal phalanx 4th digit and mid and distal 5th metacarpal fractures.
--- NOTE | ~2021-11-29 | XR_ITS ---
EXAMINATION: XR RIGHT HAND XR RIGHT WRIST CLINICAL INFORMATION: Pain right and and right wrist. COMPARISON: Right wrist 11/09/2021. TECHNIQUE: 3 views right hand. 3 views right wrist. FINDINGS: Right Wrist: There is a volar plate and screws stabilizing a comminuted intra-articular distal radial fracture in alignment. There is a ulnar styloid process fracture which is stable as well. The carpometacarpal joint spaces are preserved. The intercarpal joint spaces are normal. Right Hand: There is nondisplaced oblique fractures involving the mid and distal 5th metacarpal and 4th proximal phalanx. No additional fracture seen.. The joint spaces are maintained normal. The soft tissues are normal. XR/XR wrist RT min 3V IMPRESSION: 1. Comminuted distal radial fracture stabilized following distal radial ORIF. This is stable compared to last study 11/09/2021. 2. Ulnar styloid process displaced fracture is stable as well. . 3. Stable nondisplaced oblique proximal phalanx 4th digit and mid and distal 5th metacarpal fractures.
== END 2021-11-29 17:22 | disposition home or self-care (01) ==
LOC: HO.HOSX 17:21
PROVIDERS: Visit Provider Orthopaedic Surgery
DX: M79.641 Pain in right hand (principal); M25.531 Pain in right wrist
CPT/HCPCS: 73110; 73130

== ENCOUNTER 2021-12-28 | Outpatient (REF) | payer OTHER, MEDICAID, SELFPAY ==
--- NOTE | ~2021-12-28 | XR_ITS ---
EXAMINATION: XR WRIST, RIGHT CLINICAL INFORMATION: Right wrist pain. COMPARISON: 11/30/2021 TECHNIQUE: PA, lateral, and oblique views of the right wrist. FINDINGS: Again seen is a fracture involving the distal radius with a plate and screw device present. No evidence of hardware failure or fracture. Ulnar styloid fracture again noted. No new fractures are seen. XR/XR wrist RT min 3V IMPRESSION: No interval change when compared to the prior study.
== END 2021-12-28 00:01 | disposition home or self-care (01) ==
LOC: HO.HOSX
PROVIDERS: Visit Provider Orthopaedic Surgery
DX: Z13.89 Encounter for screening for other disorder (principal)
CPT/HCPCS: 73110

== ENCOUNTER 2022-01-31 11:00 | Outpatient (RCR) | payer OTHER, MEDICAID, SELFPAY | END 2022-02-24 11:50 | disposition home or self-care (01) | LOC: HO.OT 11:00 | PROVIDERS: PCP Internal Medicine; Visit Provider Orthopaedic Surgery | DX: S52.611A Displaced fracture of right ulna styloid process, initial encounter for closed fracture (principal); S62.326A Displaced fracture of shaft of fifth metacarpal bone, right hand, initial encounter for closed fracture; S62.614A Displaced fracture of proximal phalanx of right ring finger, initial encounter for closed fracture; M25.641 Stiffness of right hand, not elsewhere classified | CPT/HCPCS: 29125; 97110; 97140; 97166; 97530; 97760 ==

== ENCOUNTER 2023-03-06 10:14 | Outpatient (REF) | payer OTHER, MEDICAID, SELFPAY ==
[2023-03-09 07:24] LABS: TS Negative Control Passed; TS Panel A 0; TS Panel B 0; TS Positive Control Passed; TSpotTB Negative (Negative)
== END 2023-03-06 10:15 | disposition home or self-care (01) ==
LOC: HO.HHCL 10:14
PROVIDERS: Visit Provider Internal Medicine
DX: Z11.1 Encounter for screening for respiratory tuberculosis (principal)
CPT/HCPCS: 36415; 86481

== ENCOUNTER 2023-09-12 15:15 | Outpatient (REF) | payer OTHER, MEDICAID, SELFPAY ==
[2023-09-12 16:14] LABS: MANUAL DIFF FLAG NO
[2023-09-12 16:29] LABS: Basophils Percent Auto 0.6 % (0-2); Eosinophils Absolute Auto 0.2 X10*3/uL (0.0-0.4); Eosinophils Percent Auto 2.7 % (0-4); Hematocrit 39.9 % (37.0-47.0); Hemoglobin 13.1 g/dl (12.0-16.0); Imm Gran Abs Auto 0.03 X10*3/uL (0.00-0.03); Imm Gran Pct Auto 0.4 % (0.0-0.4); Lymphocytes Percent Auto 28.8 % (20-40); Mean Corpuscular HGB Conc 32.8 g/dl (31.0-35.0); Mean Corpuscular Hemoglobin 29.2 pg (27.0-33.0); Mean Corpuscular Volume 88.9 fL (80.0-98.0); Mean Platelet Volume 9.8 fL (9.4-12.3); Monocytes Absolute Auto 0.8 X10*3/uL (0.1-1.2); Monocytes Percent Auto 11.8 % (2-11); Neutrophils Absolute Auto 3.9 x10*3/uL (2.0-8.3); Neutrophils Percent Auto 55.7 % (45-73); Platelet Count 349 X10*3/uL (160-400); Red Blood Count 4.49 X10*6/uL (4.20-5.50); Red Cell Distribution Width 13.1 % (11.0-16.0); White Blood Count 6.9 X10*3/uL (4.8-10.8)
[2023-09-12 16:42] LABS: Estimated Average Glucose 91 mg/dL; Hemoglobin A1c % 4.8 % (<6.0)
[2023-09-12 16:53] LABS: Alanine Aminotransferase 9 U/L (0-31); Albumin Level 4.6 g/dL (3.5-5.0); Alkaline Phosphatase 66 U/L (39-117); Anion Gap 16 (12-20); Aspartate Amino Transferase 11 U/L (5-31); Bilirubin Total 0.3 mg/dL (0.0-1.0); Blood Urea Nitrogen 7 mg/dL (9-16); Calcium 9.8 mg/dL (8.4-10.2); Carbon Dioxide 25 mmol/L (22-29); Chloride 104 mmol/L (96-108); Cholesterol 170 mg/dL (<200); Estimated Glomerular Filt Rate > 60; Glucose Random 77 mg/dL (60-115); HDL Cholesterol 63 mg/dL (>40); LDL Cholesterol Calculated 84 mg/dL (<100); Potassium 3.9 mmol/L (3.3-5.1); Sodium 141 mmol/L (135-145); Total Protein 8.2 g/dL (6.5-8.0); Triglycerides 118 mg/dL (<150)
[2023-09-12 20:22] LABS: Reflex LDLD? No
[2023-09-13 04:45] LABS: HIV AB/AG Nonreactive (Nonreactive)
[2023-09-13 14:18] LABS: HCV Log PCR <1.18 NOT DETECTED Log IU/mL (NOT DETECTED); HepC Viral Load <15 NOT DETECTED IU/mL (NOT DETECTED)
== END 2023-09-12 15:16 | disposition home or self-care (01) ==
LOC: HO.HHCL 15:15
PROVIDERS: Visit Provider Internal Medicine
DX: Z00.00 Encounter for general adult medical examination without abnormal findings (principal); Z13.1 Encounter for screening for diabetes mellitus
CPT/HCPCS: 36415; 80053; 80061; 83036; 85025; 87389; 87522

== ENCOUNTER 2023-09-14 17:48 | Outpatient (REF) | payer OTHER, MEDICAID, SELFPAY | END 2023-09-14 17:49 | disposition home or self-care (01) | LOC: HO.HHCLNP 17:48 | PROVIDERS: Visit Provider Nurse Practitioner Family | DX: R39.9 Unspecified symptoms and signs involving the genitourinary system (principal) | CPT/HCPCS: 87086 ==

== ENCOUNTER 2023-09-26 15:54 | Outpatient (REF) | payer OTHER, MEDICAID, SELFPAY ==
[2023-09-26 18:09] LABS: Appearance Urine Clear; Color Urine Yellow; Glucose Urine UA Negative (Negative); Leukocyte Esterase Urine Small (1+) (Negative); Nitrite Urine Negative (Negative); PH 6.5 (5.0-9.0); UMIC TRIGGER UACC YES; Urine Blood Negative (Negative); Urine Ketones Negative (Negative); Urine Protein Negative (Neg-Trace)
[2023-09-26 18:29] LABS: Bacteria Urine Trace (None Seen); Hyaline Casts Urine 0-2 /LPF (0-2); RBC Urine 0-2 /HPF (0-2); Squamous Epithelial Cell Urine 0-2 /HPF (0-2); UACC Culture Trigger YES; WBC Urine 0-5 /HPF (0-5)
== END 2023-09-26 15:55 | disposition home or self-care (01) ==
LOC: HO.HHCL 15:54
PROVIDERS: Visit Provider Nurse Practitioner Family
DX: N30.01 Acute cystitis with hematuria (principal)
CPT/HCPCS: 81001; 87086

== ENCOUNTER 2023-10-04 16:04 | Outpatient (REF) | payer OTHER, MEDICAID, SELFPAY ==
[2023-10-05 03:43] LABS: Syphilis Screen Nonreactive (Nonreactive)
[2023-10-05 04:09] LABS: HIV AB/AG Nonreactive (Nonreactive); HIV Num 1 0.06 S/CO (0.00-0.99); ~HepC Num1 0.21 S/CO (0.00-0.79); ~Hepatitis C Antibody Nonreactive (Nonreactive)
[2023-10-05 05:03] LABS: CT PCR NOT DETECTED (Not Detect.); NG PCR NOT DETECTED (Not Detect.)
[2023-10-05 11:33] LABS: Bacterial Vaginosis PCR NEGATIVE (Negative); Candida Group PCR NOT DETECTED (Not Detect); Candida glab krusei PCR NOT DETECTED (Not Detect); Trichomonas vaginalis PCR NOT DETECTED (Not Detect)
[2023-10-07 09:39] LABS: Trichomonas vaginalis RNA NOT DETECTED (NOT DETECTED)
== END 2023-10-04 16:05 | disposition home or self-care (01) ==
LOC: HO.HHCL 16:04
PROVIDERS: Visit Provider Internal Medicine
DX: N76.0 Acute vaginitis (principal)
CPT/HCPCS: 0352U; 36415; 86780; 86803; 87389; 87491; 87591; 87661

== ENCOUNTER 2023-10-16 16:36 | Outpatient (REF) | payer OTHER, MEDICAID, SELFPAY ==
[2023-10-16 16:42] LABS: Appearance Urine Clear; Color Urine Yellow; Glucose Urine UA Negative (Negative); Leukocyte Esterase Urine Trace (Negative); Nitrite Urine Negative (Negative); Specific Gravity - Urine 1.015 (1.005-1.025); UMIC TRIGGER UACC YES; Urine Blood Negative (Negative); Urine Ketones Negative (Negative); Urine Protein Negative (Neg-Trace)
[2023-10-16 16:44] LABS: Bacteria Urine None Seen (None Seen); Hyaline Casts Urine 0-2 /LPF (0-2); RBC Urine 0-2 /HPF (0-2); Squamous Epithelial Cell Urine 0-2 /HPF (0-2); WBC Urine 0-5 /HPF (0-5)
[2023-10-16 18:28] LABS: Bacterial Vaginosis PCR NEGATIVE (Negative); Candida Group PCR NOT DETECTED (Not Detect); Candida glab krusei PCR NOT DETECTED (Not Detect); Trichomonas vaginalis PCR NOT DETECTED (Not Detect)
== END 2023-10-16 16:37 | disposition home or self-care (01) ==
LOC: HO.HHCLNP 16:36
PROVIDERS: Visit Provider Nurse Practitioner Primary Care
DX: R10.2 Pelvic and perineal pain (principal)
CPT/HCPCS: 0352U; 81001

== ENCOUNTER 2023-12-10 17:30 | Outpatient (REF) | payer OTHER, MEDICAID, SELFPAY ==
[2024-01-02 13:31] LABS: HPV 16 RNA NOT DETECTED
[2024-01-02 13:32] LABS: HPV mRNA E6/E7 rflx Detected (Abnormal)
== END 2023-12-10 17:31 | disposition home or self-care (01) ==
LOC: HO.HHCLNP 17:30
PROVIDERS: Visit Provider Advanced Practice Midwife
DX: Z12.4 Encounter for screening for malignant neoplasm of cervix (principal)
CPT/HCPCS: 36415; 87624; 87625; 88175

== ENCOUNTER 2024-02-18 11:08 | Outpatient (REF) | payer OTHER, MEDICAID, SELFPAY ==
[2024-02-18 14:01] LABS: HBS Num1 6.13 mIU/mL (0-7.99); HBsAGNum1 0.34 S/CO (0.00-0.99); HIV AB/AG Nonreactive (Nonreactive); HIV Num 1 0.04 S/CO (0.00-0.99); Hepatitis B Surface Antigen Negative (Negative); ~HepC Num1 0.22 S/CO (0.00-0.79); ~Hepatitis B Surface Antibody NONREACTIVE (Nonreactive); ~Hepatitis C Antibody Nonreactive (Nonreactive)
[2024-02-18 15:03] LABS: CT PCR NOT DETECTED (Not Detect.); NG PCR NOT DETECTED (Not Detect.)
[2024-02-19 08:39] LABS: Bacterial Vaginosis PCR NEGATIVE (Negative); Candida Group PCR NOT DETECTED (Not Detect); Candida glab krusei PCR NOT DETECTED (Not Detect); Trichomonas vaginalis PCR NOT DETECTED (Not Detect)
[2024-02-21 13:08] LABS: RPR Rapid Plasma Reagin NON-REACTIVE (NON-REACTIVE)
== END 2024-02-18 11:09 | disposition home or self-care (01) ==
LOC: HO.HHCL 11:08
PROVIDERS: Visit Provider Internal Medicine Geriatric Medicine
DX: R30.0 Dysuria (principal); N89.8 Other specified noninflammatory disorders of vagina; A49.3 Mycoplasma infection, unspecified site
CPT/HCPCS: 0352U; 86592; 86706; 86803; 87086; 87340; 87389; 87491; 87591

== ENCOUNTER 2024-03-07 17:51 | Outpatient (REF) | payer OTHER, MEDICAID, SELFPAY ==
[2024-03-07 18:07] LABS: Appearance Urine Clear; Color Urine Yellow; Glucose Urine UA Negative (Negative); Leukocyte Esterase Urine Small (1+) (Negative); Nitrite Urine Negative (Negative); PH 5.5 (5.0-9.0); Specific Gravity - Urine 1.015 (1.005-1.025); UMIC TRIGGER UA YES; Urine Blood Negative (Negative); Urine Ketones Negative (Negative); Urine Protein Negative (Neg-Trace)
[2024-03-07 18:11] LABS: Bacteria Urine 1+ (None Seen); Hyaline Casts Urine 0-2 /LPF (0-2); RBC Urine 0-2 /HPF (0-2); Squamous Epithelial Cell Urine 0-2 /HPF (0-2)
== END 2024-03-07 17:52 | disposition home or self-care (01) ==
LOC: HO.HHCLNP 17:51
PROVIDERS: Visit Provider Nurse Practitioner
DX: R30.0 Dysuria (principal)
CPT/HCPCS: 36415; 81001; 87086

== ENCOUNTER 2024-03-14 14:11 | Outpatient (REF) | payer OTHER, MEDICAID, SELFPAY ==
--- OUTSIDE RECORDS SUMMARY | 2024-03-14 15:51 | XMS_ITS | Encounter Summary ---
Author Organization [employer] Address [address] [place] [address] Care Team Providers Care Mental Retardation Nurse Name Role Phone Gemini Hennessy MD Primary Care Provide r Reason for Visit * Reason Comments UTI Encounter Details Date Type Department Care Team ([facility] st Contact Info) Description 03/07/2024 2:00 PM EST Office Visit [facility] [address] [place] [address] Dysuria (Primary Dx); UTI symptoms Social History Tobacco Use Types Packs/Day Years Used Date Smoking Tobacco: Never Passive Smoke Exposure: Never Smokeless Tobacco: Never Alcohol Use Standard Drinks/Week Comments Never 0 (1 standard drink = 0.6 oz pur e alcohol) Alcohol Answer Date Recorded Frequency of Alcohol Consumption Not on file 09/12/2023 Average Number of Drinks Not on file 024 Frequency of Binge Drinking Not on file 08/20 Score 0 09/12/2023 Depression Answer Date Recorded Patient Health Questionnaire-9 Score 0 09/12/2023 Patient Health Questionnaire-9 Score 0 09/12/2023 Last PHQ-9: Questionnaire Data Not on file 0 09/12/2023 Housing Stability Answer Date Recorded What is your housing situation today? I have demetri dacosta 09/12/[address] you li ve. Do you have problems with any of the following? None of the above 09/12/2023 Food Insecurity Answer Date Recorded Within the past 12 months, y ou worried that your food would run out before you got money to buy more: Never True 09/12/2023 Within the past 12 months,th e food you bought just didn't last and you didn't have enough money to get more: Never True Transportation Answer Date Recorded In the past 12 months, has l ack of transportation kept you from medical appts, meetings, work or from getting things needed for daily living? No 09/12/2023 Utilities Answer Date Recorded In the past 12 months, has t he electric, gas, oil or water company threatened to shut off services in your home? No 09/12/2023 Depression Answer Date Recorded Patient Health Questionnaire-2 Score 0 09/12/2023 Internet Access Answer Date Recorded Internet Access Q1 No 10/22/2023 Internet Access Q2 I do not want or need it 03/2023 Comments Unknown Sex and Gender Information Value Date Recorded Sex Assigned at Female 12/19/2021 10:15 AM EDT Legal Sex Female 10:15 AM EDT Gender Identity Female 12/19/2021 10:15 AM EDT Sexual Orientation Straight 12/19/2021 10 :15 AM EDT documented as of this encounter Last Filed Vital Signs Vital Sign Reading Time Taken Comments Blood Pressure 123/74 03/07/2024 1:02 PM EST Pulse 90 03/07/2024 1:02 PM EST Temperature 36.6 ??C (97.9 ??F) 03/07/2024 1:02 PM ES T Respiratory Rate 16 03/07/2024 1:02 PM EST Oxygen Saturation 99% 03/07/2024 1:02 PM EST Inhaled Oxygen Concentration - - Weight 64 kg (141 lb) 03/07/2024 1:02 PM EST Height - - Body Mass Index 22.76 02/18/2024 10:14 AM EST documented in this encounter Plan of Treatment Upcoming Encounters Date Type Department Care Team (Late st Contact Info) Description 04/17/2024 10:00 AM EST Office Visit [facility] [address] [place], [place] [phone] Gemini Hennessy MD [address] [place] [address] Scheduled Orders Name Type Priority Associated Diagnoses Orde r Schedule Mycoplasma/Ureaplas ma??Panel Microbiology Routine Dysuria Expected: 03/07/2024 (Approximate), Expires: 03/07/2025 documented as of this encounter Procedures Procedure Name Priority Date/Time Associated Diagnosis Comments POCT URINALYSIS DIPSTICK Routine 03/07/2024 1:16 PM EST UTI symptoms URINALYSIS, COMPLETE Routine 03/07/2024 12:00 AM EST Dysuria CULTURE, URINE, ROUTINE Routine 03/07/2024 12:00 AM EST Dysuria documented in this encounter Results * (ABNORMAL) POCT urinalysis dipstick manually resulted (03/07/2024 1:16 PM EST) Color, UA Yellow Clarity, UA Clear Glucose, UA Negative Bilirubin, UA Negative Ketones, UA Negative Spec Grav, UA 1.015 Blood, UA Positive(A) Negative, None Detected Comment:Trace pH, UA 6.0 Protein, UA Negative Urobilinogen, UA 0.2 Leukocytes, UA Few 15(A) Negative, Rare, Trace Nitrite, UA Negative Negative, None Detected Appearance, UA OK Urine 03/07/2024 1:16 PM EST Lydia Villagran RESIDENTIAL REAL ESTATE ASSISTANT POINT OF CARE TEST ENTER/EDIT O RDERABLES Final Result * (ABNORMAL) Urinalysis Complete (03/07/2024 12:00 AM EST) Color Urine Yellow [facility] Appearance Urine Clear [facility] PH 5.5 5.0 - 9.0 [facility] Glucose Urine UA Negative Negative mg/dL [facility] Urine Blood Negative Negative [facility] Specific [place] - Urine 1.015 1.005 - 1.025 [facility] Urine Protein Negative Neg-Trace mg/dL [facility] Urine Ketones Negative Negative mg/dL [facility] Nitrite Urine Negative Negative [facility] Leukocyte Esterase Urine Small (1+)(A) Negative [facility] RBC Urine 0-2 0 - 2 /HPF [facility] Urine WBC 6-10(A) 0 - 5 /HPF [facility] Urine Squamous Epithelial Cell 0-2 0 - 2 /HPF [facility] Urine Bacteria 1+ None Seen [facility] Hyaline Casts, Urine 0-2 0 - 2 /LPF [facility] Urine Urine specimen obtained by clean catch procedure / Unknown 03/07/2024 03/07/2024 [facility] RESIDENTIAL REAL ESTATE ASSISTANT LAB URINE ORDERABLES Final Resu lt Performing Organization Address City/[facility]/ZIP Co de Phone Number [facility] [address] [place] [address] [phone] * Culture, Urine, Routine (03/07/2024 12:00 AM EST) Urine Urine specimen obtained by clean catch procedure / Unknown 03/07/2024 03/07/2024 Comment:[facility]ACC Narrative [facility] - 03/09/2024 12:40 PM EST Urine Culture Report Result Urine Culture < 10,000 cfu/ml Specimen Source: Urine clean catch Lydia Rosalba RESIDENTIAL REAL ESTATE ASSISTANT LAB MICROBIOLOGY - GENERAL ORDE RABLES Final Result Performing Organization Address [facility] Co de Phone Number [facility] [address] [place] [phone] documented in this encounter Visit Diagnoses Diagnosis Dysuria- Primary UTI symptoms documented in this encounter Additional Health Concerns Assessment Noted Time PHQ-9 Depression Total Score: 0 09/12/19 24 2:11 PM EDT documented as of this encounter Care Teams Mental Retardation Nurse Relationship Specialty Start Date End Date Gemini Hennessy MD [address] [place] [phone] PCP - General Internal Medicine 11/01/22 documented as of this encounter
--- OUTSIDE RECORDS SUMMARY | 2024-03-14 15:52 | XMS_ITS | Encounter Summary ---
Author Organization [facility] Address [address] [place] [address] Care Team Providers Care Metal Tube Cutter Name Role Phone Gemini Hennessy MD Primary Care Provide r Reason for Visit * Reason Onset Date Comments Results 10/01/2023 Encounter Details Date Type Department Care Team ([facility] st Contact Info) Description 10/01/2023 Telephone [facility] [address] [place] [address] Gemini Hennessy MD [address] [place] [phone] Results Social History Tobacco Use Types Packs/Day Years [...] the past 12 months, has t he [employer], gas, oil or water [employer] threatened to shut off services in your home? No 09/12/2023 Depression Answer Date Recorded Patient Health Questionnaire-2 Score 0 09/12/2023 Comments Unknown Sex and Gender Information Value Date Recorded Sex Assigned at Female 12/19/2021 10:15 AM EDT Legal Sex Female 10:15 AM EDT Gender Identity Female 12/19/2021 10:15 AM EDT Sexual Orientation Straight 12/19/2021 10 :15 AM EDT documented as of this encounter Miscellaneous Notes * Telephone Encounter - Carmita Ulrich RN - 10/02/2023 11:28 AM EDT T/C to pt. To inform that her lab results are normal, pt. Verbally agreed and understood. * Telephone Encounter - Frances Chacon NP - 10/02/2023 11:02 AM EDT Please let pt know that her repeat ua was normal thank you * Telephone Encounter - Carmita Ulrich RN - 10/02/2023 10:43 AM EDT Please review below request from pt. Labs result is in pt.'s chart. * Telephone Encounter - Kaye Landeros - 10/01/2023 3:46 PM EDT Tc from pt requesting a call back with labs results from 09/25. Please contact pt. documented in this encounter Plan of Treatment Upcoming Encounters Date Type Department Care Team (Late st Contact Info) Description 04/17/2024 10:00 AM EST Office Visit [facility] [address] [place] [phone] Gemini Hennessy MD [address] [place] [phone] documented as of this encounter Visit Diagnoses Not on filedocumented in this encounter Additional Health Concerns Assessment Noted Time PHQ-9 Depression Total Score: 0 09/12/19 24 2:11 PM EDT documented as of this encounter Care Teams Metal Tube Cutter Relationship Specialty Start Date End Date Gemini Hennessy MD [address] [place] [phone] PCP - General Internal Medicine 11/01/22 documented as of this encounter
--- OUTSIDE RECORDS SUMMARY | 2024-03-14 15:52 | XMS_ITS | Clinical Summary ---
Author Organization [employer] Address [address] [place] [address] 7[address] [place] [address] Care Team Providers Care Device Test Engineer Name Role Phone Gemini Hennessy MD Primary Care Provide r Allergies Active Allergy Reactions Criticality Noted Date Comments Coconut Flavoring Agent (Non-Screening) 09/12/2023 Peanut Butter Flavoring Agen t (Non-Screening) 09/12/2023 Medications escitalopram (Lexapro) 20 MG tabletIndicatio ns:Depression with anxiety TAKE 1 TABLET BY MOUTH EVERY DAY 90 tablet 1 3 Active cyclobenzaprine (Flexeril) 10 MG tablet Take 1 tablet (10 mg) by mouth 2 times daily for 10 days. 20 tablet 4 Active Apf-Zm-Ssjfnu 0.18/0.215/0.25 MG-25 MCG tablet TAKE 1 TABLET BY MOUTH EVERY DAY IN THE MORNING 84 tablet 3 4 Active loratadine (Claritin) 10 MG tablet Take 1 tablet (10 mg) by mouth Once per day. 30 tablet 11 4 07/18/19 25 Active EPINEPHrine (Epipen) 0.3 MG/0.3ML injection syringeIndicati ons:Allergy to peanuts Inject 0.3 mL (0.3 mg) as directed 1 (one) time if needed for anaphylaxis for up to 1 dose. Inject into upper leg. Call 911 after use. 1 each 4 Active fluticasone (Flonase) 50 MCG/ACT nasal spray ADMINISTER 2 SPRAYS INTO EACH NOSTRIL ONCE A DAY. SHAKE GENTLY. BEFORE FIRST USE, PRIMP PUMP. AFTER USE, CLEAN TIP AN REPLACE CAP. 48 mL 4 Active montelukast (Singulair) 10 MG tablet TAKE 1 TABLET BY MOUTH EVERY DAY 90 tablet 4 Active albuterol (Ventolin HFA) 108 (90 Base) MCG/ACT inhaler INHALE 2 PUFFS BY MOUTH EVERY 4 HOURS NEEDED FOR WHEEZING 18 g 3 4 Active doxycycline (Vibramycin) 100 MG capsule Take 1 capsule by mouth 2 times daily. 4 Active doxycycline (Vibra-Tabs) 100 MG tablet Take 1 tablet (100 mg) by mouth 2 times daily for 7 days. Take with a full glass of water and do not lie down for at least 30 minutes after. 14 tablet 4 02/24/19 25 moxifloxacin (Avelox) 400 MG tablet Take 1 tablet (400 mg) by mouth Once per day for 7 days. 7 tablet 4 02/24/19 25 Active Problems Problem Noted Date Diagnosed Date Pelvic pain 10/10/2023 Assessment & Plan (10/10/2023 10:07 AM EDT): I will order pelvic US/transvaginal as soon as we have an appointment she will be seen for f/u pelvic pain/dyspareunia Dyspareunia, female 10/10/2023 Allergy to peanuts 10/10/2023 Vaginosis 10/04/2023 Assessment & Plan (10/04/2023 4:02 PM EDT): 27 year old female sexually active ( last 3 months ago) on OTCs. Here with c/o new onset of vaginal discharge and suprapubic discomfort. Seen on 09/14/2023 back then c/o dysuria treated for presumptive UTI. On today's exam abdomen is soft and non tender, there is mild suprapubic tenderness. Vaginal exam; there is a witish/grayish discharge and cervical os erythema but no cervico motion tenderness. HCG Negative U/A Trace Leuk ONLY Plan: Will treat empirically with Diflucan and Metrogel Sent for GC & Chlamydia testing and full STI panel ordered as well as Urine Cx. Pt advised to abstain from sexual activity until testing back and instructed her to call us or come back if symptoms do not improve or worsen despite treatment. Pt agreeable with the plan Acute cystitis with hematuria 09/14/2023 Assessment & Plan (09/14/2023 4:50 PM EDT): Pt with increasing dysuria, frequency, and hematuria Abnormal ua, Will treat presumptively, culture pending Rtc for worsening symptoms, failure to resolve. Continue abx until completion Mild intermittent asthma without complication Assessment & Plan (09/12/2023 4:30 PM EDT): Controlled c/w same interventions Health care maintenance 09/12/2023 Assessment & Plan (09/12/2023 4:31 PM EDT): See HPI PAP schedule for 11/2023 Labs ordered Clogged ear, bilateral 07/13/2023 Assessment & Plan (07/13/2023 9:59 AM EDT): I advise to first use debrox on each ear then come back for ear lavage with nurse, plan is if cerumen is not coming out to refer her to ENT Depression with anxiety 04/14/2022 Encounters Date Type Department Care Team Description 03/13/[address] [facility] [address] [place] [phone] Lydia Villagran NP Dysuria (Primary Dx) 03/11/[address] [facility] [address] [place] [phone] Sofía López RN Lab Orders 03/07/2024 2:00 PM EST Office Visit [facility] [address] [place] [phone] Dysuria (Primary Dx); UTI symptoms 03/07/2024 Travel 03/06/[address] [address] Guerita Peña, CHRISTY NTTS f/u 03/06/[address] [phone] Gemini Hennessy MD Nurse Triage 03/03/[address] [facility] [address] [place] [phone] Rashel Serrano MD 02/18/2024 10:40 AM EST [facility] [address] [phone] Rashel Serrano MD Dysuria (Primary Dx); Vaginal itching; 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 02/15/[address] [facility] [address] [place] [phone] Gemini Hnenessy MD Nurse Triage 01/22/2024 [facility] [address] [phone] Diana Pyle FNP 12/31/[address] [address] Galilea Locke, RN Results 12/21/[address] [address] Galilea Locke, RN Results 12/21/2023 Orders Only [address] [address] Paola Juares, LUBA LGSIL on Pap smear of cervix (Primary Dx) from Last 3 Months Immunizations Name Administration Dates Next Due DTaP 04/03/2001, 0,06/25/1998,04/22,02/22/1998 HPV, Quadrivalent 01/29/2014,09/19/2011,08/26/19 11 Hep B, Adolescent or Pediatric 06/25/1998,1997,1997 Hib (HbOC) 05/09/1999, 9,04/22/1998,02/22 IPV 04/03/2002, 0,04/22/1998,02/22 Influenza injectable quadriv alent preservative free 11/26/2022,12/08/2020 Influenza live intranasal qu adrivalent LIAV4 01/29/2014 Influenza, live, intranasal 12/26/2012, 7 MMR 04/03/2002,02/21/1999 Meningococcal MCV4P [id number]-135 01/29/2014,08/26/19 11 Tdap 12/24/2020,08/25/2010 Varicella 12/14/2010,02/21/1999 Social History Tobacco Use Types Packs/Day Years Used Date Smoking Tobacco: Never Passive Smoke Exposure: Never Smokeless Tobacco: Never Tobacco Cessation:Counseling Given: Not Answered Alcohol Use Standard Drinks/Week Comments Never 0 [...] Orientation Straight 12/19/2021 10 :15 AM EDT Last Filed Vital Signs Vital Sign Reading Time Taken Comments Blood Pressure 123/74 03/07/2024 1:02 PM EST Pulse 90 03/07/2024 1:02 PM EST Temperature 36.6 ??C (97.9 ??F) 03/07/2024 1:02 PM ES T Respiratory Rate 16 03/07/2024 1:02 PM EST Oxygen Saturation 99% 03/07/2024 1:02 PM EST Inhaled Oxygen Concentration - - Weight 64 kg (141 lb) 03/07/2024 1:02 PM EST Height 167.6 cm (5' 6 ) 02/18/2024 10:14 AM EST Body Mass Index 22.76 02/18/2024 10:14 AM EST Plan of Treatment Upcoming Encounters Date Type Department Care Team (Late st Contact Info) Description 04/17/2024 10:00 AM EST Office Visit [facility] [address] [place] [address] Gemini Hennessy MD [address] [place], [place] [phone] Health Maintenance Due Date Last Done Comments Pneumococcal Vaccine: Pediatrics (0 to 5 Years) and At-Risk Patients (6 to 64 Years) (1 of 2 - PCV) 12/19/2003 COVID-19 Vaccine ( season) 2023 11/26/2022, 07/07/2020, 06/16/2020 Influenza Vaccine (#1) 2023 , 12/08/2020, 01/29/2014, Additional history exists Colposcopy 12/11/2023 Alcohol/Substance Use Screening 09/11/2024 09/12/2023 Depression Screening 09/11/2024 09/12/2023, 09/12/19 SDOH Screening 09/11/2024 09/12/2023 Tobacco Screening 11/05/2024 11/06/2023 Family Planning (PISQ) 12/09/2024 12/10/2023 Pap Smear 12/09/2026 12/10/2023, 12/08/2020 DTaP/Tdap/Td Vaccines (7 - Td or Tdap) 12/24/2030 12/24/2020, 08/25/2010, 04/03/2001, Additional history exists Zoster Vaccines (1 of 2) 12/19/2047 RSV Patients and Patients Aged 60 years or older (1 - 1-dose 75+ series) 2072 Hepatitis B Vaccines Completed 06/25/1998, 01/25/1998, 1997 HIB Vaccines Completed 05/09/1999, 08/1998, 04/22/1998, Additional history exists IPV Vaccines Completed 04/03/2002, 04/20, 04/22/1998, Additional history exists HPV Vaccines Completed 01/29/2014, 08/21, 08/25/2010 Meningococcal Vaccine Completed 01/29/2014, 011 HIV Screening Completed 02/18/2024, 09/19, 09/12/2023, Additional history exists Hepatitis C Screening Completed 02/18/2024 , 10/04/2023, 09/12/2023, Additional history exists Hepatitis A Vaccines Aged Out No long er eligible based on patient's age to complete this topic RSV under 20 months Aged Out No longe r eligible based on patient's age to complete this topic Rotavirus Vaccines Aged Out No longer eligible based on patient's age to complete this topic Procedures Procedure Name Priority Date/Time Associated Diagnosis Comments POCT URINALYSIS DIPSTICK Routine 03/07/2024 1:16 PM EST UTI symptoms CANCELLED SEROLOGY Routine 03/07/2024 12 :00 AM EST LGSIL on Pap smear of cervix URINALYSIS, COMPLETE Routine 03/07/2024 12:00 AM EST Dysuria CULTURE, URINE, ROUTINE Routine 03/07/2024 12:00 AM EST Dysuria HEPATITIS B SURFACE ANTIBODY, QUALITATIVE Routine 02/18/2024 11:11 AM EST Dysuria Vaginal itching 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 HEPATITIS B SURFACE ANTIGEN, EIA Routine 02/18/2024 11:11 AM EST Dysuria Vaginal itching 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 HEPATITIS C AB W/REFL TO HCV RNA, QN, PCR Routine 02/18/2024 11:11 AM EST Dysuria Vaginal itching 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 RPR (MONITOR) W/REFL TITER Routine 02/18/2024 11:11 AM EST Dysuria Vaginal itching 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 HIV 1/2 ANTIGEN/ANTIBODY, FOURTH GENERATION W/RFL Routine 02/18/2024 11:11 AM EST Dysuria Vaginal itching 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 CULTURE, URINE, ROUTINE Routine 02/18/2024 11:11 AM EST Dysuria CHLAMYDIA/N. GONORRHOEAE RNA, TMA, UROGENITAL Routine 02/18/2024 11:11 AM EST Dysuria Vaginal itching POCT , URINE Routine 02/18/2024 11:01 AM EST Dysuria Vaginal itching 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 POCT URINALYSIS DIPSTICK Routine 02/18/2024 10:40 AM EST Dysuria BACTERIAL VAGINOSIS PANEL Routine 02/18/2024 10:19 AM EST Vaginal itching THINPREP IMAGING SYSTEM PAP Routine 12/10/2023 10:46 AM EDT Cervical cancer screening from Last 3 Months or Most Recently Relevant to Health Maintenance Results * (ABNORMAL) POCT urinalysis dipstick manually resulted (03/07/2024 1:16 PM EST) Only the most recent of2 resultswithin the time period is included. Color, UA Yellow Clarity, UA Clear Glucose, UA Negative Bilirubin, UA Negative Ketones, UA Negative Spec Grav, UA 1.015 Blood, UA Positive(A) Negative, None Detected Comment:Trace pH, UA 6.0 Protein, UA Negative Urobilinogen, UA 0.2 Leukocytes, UA Few 15(A) Negative, Rare, Trace Nitrite, UA Negative Negative, None Detected Appearance, UA OK Urine 03/07/2024 1:16 PM EST [facility] CLIENT SUCCESS MANAGER POINT OF CARE TEST ENTER/EDIT O RDERABLES Final Result * Cancelled Serology (03/07/2024 12:00 AM EST) Cancelled Serology SEE NOTE [facility] Comment:THE FOLLOWING TESTS WERE CANCELLED: MYCO UREAPL PNLREASON: WRONG SWAB WAS USED. SWAB NEEDS TO BE COLLECTED INAPTIMA WITH WHITE LABEL OR ORANGE LABEL. URINE IS ACCEPTABLETO BE POURED INTO [facility] 03/07/2024 03/07/2024 [facility] CLIENT SUCCESS MANAGER HISTORICAL/NON ORDERABLE LABS F inal Result [facility] [address] [place] [phone] * (ABNORMAL) Urinalysis Complete (03/07/2024 12:00 AM EST) Color Urine Yellow [facility] Appearance Urine Clear [facility] PH 5.5 5.0 - 9.0 [facility] Glucose Urine UA Negative Negative mg/dL [facility] Urine Blood Negative Negative [facility] Specific Manson - Urine 1.015 1.005 - 1.025 [facility] Urine Protein Negative Neg-Trace mg/dL [facility] Urine Ketones Negative Negative mg/dL [facility] Nitrite Urine Negative Negative [facility] Leukocyte Esterase Urine Small (1+)(A) Negative [facility] RBC Urine 0-2 0 - 2 /HPF [facility] Urine WBC 6-10(A) 0 - 5 /HPF [facility] Urine Squamous Epithelial Cell 0-2 0 - 2 /HPF [facility] Urine Bacteria 1+ None Seen [facility] Hyaline Casts, Urine 0-2 0 - 2 /LPF [facility] Urine Urine specimen obtained by clean catch procedure / Unknown 03/07/2024 03/07/2024 Lydia Villagran NP LAB URINE ORDERABLES Final Resu lt Performing Organization Address [facility] Co de Phone Number [facility] [address] [place] [phone] * Culture, Urine, Routine (03/07/2024 12:00 AM EST) Only the most recent of2 resultswithin the time period is included. Urine Urine specimen obtained by clean catch procedure / Unknown 03/07/2024 03/07/2024 Comment:UACC Narrative [facility] - 03/09/2024 12:40 PM EST Urine Culture Report Result Urine Culture < 10,000 cfu/ml Specimen Source: Urine clean catch Lydia Villagran NP LAB MICROBIOLOGY - GENERAL ORDE RABLES Final Result Performing Organization Address [facility] de Phone Number [facility] [address] [place] [phone] * Hepatitis C Antibody with Reflex to HCV, RNA, Quantitative, Real-Time PCR (02/18/2024 11:11 AM EST) Hepatitis C Antibody Nonreactive Nonreactive [facility] Comment:Antibodies to HCV no t detected; does not exclude early acuteHCV infection. Blood Venous blood specimen / Unknown 02/18/2024 11:11 AM EST 02/18/2024 1:18 PM EST us Rashel Serrano MD LAB BLOOD ORDERABLES Final Resul t Performing Organization Address [facility] Co de Phone Number [facility] [address] [place] [phone] * Chlamydia/N. Gonorrhoeae RNA, TMA, Urogenitial (02/18/2024 11:11 AM EST) CT PCR NOT DETECTED Not Detect. [facility] Comment:A not detected test result does not exclude the possibilityof infection because test results can be affected byimproper specimen collection, concurrent antibiotic therapy,or the number of organisms in the specimen which may bebelow the sensitivity of the test. As with many diagnostictests, results from the Xpert CT/NG assay should beinterpreted in conjunction with other laboratory andclinical data available to the clinician.Xpert CT/NG performance has not been evaluated in patientsless than 14 years of age. The assay should not be used forthe evaluationof suspected sexual abuse or for other medico-legalindications. Additional testing is recommended in anycircumstance when false positive or false negative resultscould lead to adverse medical, social or psychologicalconsequences. NG PCR NOT DETECTED Not Detect. [facility] Comment:A not detected test result does not exclude the possibilityof infection because test results can be affected byimproper specimen collection, concurrent antibiotic therapy,or the number of organisms in the specimen which may bebelow the sensitivity of the test. As with many diagnostictests, results from the Xpert CT/NG assay should beinterpreted in conjunction with other laboratory andclinical data available to the clinician.Xpert CT/NG performance has not been evaluated in patientsless than 14 years of age. The assay should not be used forthe evaluationof suspected sexual abuse or for other medico-legalindications. Additional testing is recommended in anycircumstance when false positive or false negative resultscould lead to adverse medical, social or psychologicalconsequences. Urine (Urine, Random) 02/18/2024 11:11 AM EST 02/18/2024 1:18 PM EST Narrative [facility] - 02/18/2024 3:04 PM EST Urine us Rashel Name LAB MICROBIOLOGY - GENERAL ORDER CORDELL Final Result [facility] [address] [place] [phone] * Hepatitis B surface antigen, EIA (02/18/2024 11:11 AM EST) Hepatitis B Surface Ag Negative Negative [facility] Blood Venous blood specimen / Unknown 02/18/2024 11:11 AM EST 02/18/2024 1:18 PM EST us Rashel Serrano MD LAB BLOOD ORDERABLES Final Resul t Performing Organization Address [facility] Co de Phone Number [facility] [address] [place] [phone] * RPR (Monitor) with Reflex to??Titer (02/18/2024 11:11 AM EST) RPR (Monitor) w/Refl Titer NON-REACTI VE NON-REACT JAYDEN [facility] Comment:THIS TEST WAS PERFOR MED AT:[facility] [place] [phone] PANG MD Rapid Plasma Reagin Ab Titer TNP [facility] Blood Venous blood specimen / Unknown 02/18/2024 11:11 AM EST 02/18/2024 1:18 PM EST us Rashel Serrano MD LAB BLOOD ORDERABLES Final Resul t Performing Organization Address [facility] Co de Phone Number [facility] [address] [place] [phone] * HIV-1/2 Antigen and Antibodies, Fourth Generation, with Reflexes (02/18/2024 11:11 AM EST) HIV AB/AG Nonreactive Nonreactive [facility] Comment:HIV-1 p24 Ag and/or HIV-1/HIV-2 Ab not detected.A test result that is nonreactive does not exclude thepossibility of exposure to or infection with HIV-1 and/orHIV-2. Nonreactive results in this assay for individualswith prior exposure to HIV-1 and/or HIV-2 may be due toantigen and antibody levels that are below the limit ofdetection of this assay.The [employer] HIV Ag/Ab Combo assay result andsupplemental assay results should be interpreted inconjunction with the patient's clinical presentation,history and other laboratory results. If the results areinconsistent with clinical evidence, additional testing issuggested to confirm the result. Blood Venous blood specimen / Unknown 02/18/2024 11:11 AM EST 02/18/2024 1:18 PM EST us Rashel Serrano MD LAB BLOOD ORDERABLES Final Resul t Performing Organization Address [facility] Co mt Phone Number [facility] [address] [place] [phone] * Hepatitis B Surface Antibody, Qualitative (02/18/2024 11:11 AM EST) [facility] ~Hepatitis B Surface Antibody NONREACTIVE Nonreactive [facility] Comment:Nonreactive: < 8.00 mIU/mL Blood Venous blood specimen / Unknown 02/18/2024 11:11 AM EST 02/18/2024 1:18 PM EST us Rashel Serrano MD LAB BLOOD ORDERABLES Final Resul t Performing Organization Address [facility] de Phone Number [facility] [address] [place] [phone] * POCT Urine (02/18/2024 11:01 AM EST) [facility] Preg Test, Ur Negative Negative, Indeterminate, None Detected, Invalid, Specimen unsatisfactory for evaluation, Weakly Positive Urine 02/18/2024 11:0 1 AM EST Result [place] Serrano MD POINT OF CARE TEST ENTER/EDIT OR DERABLES Final Result * Bacterial Vaginosis Panel (02/18/2024 10:19 AM EST) [facility] TRICHOMONAS VAGINALIS DETECTION BY PCR NOT DETECTED Not Detect [facility] BACTERIAL VAGINOSIS DETECTION BY PCR NEGATIVE Negative [facility] Comment:The BV organism targ ets of the Xpert Xpress MVP test can becommensal in women; Xpert Xpress MVP positive results forbacterial vaginosis should be considered in conjunction withother clinical and patient information to determine thedisease status. Organisms that are not detected by the XpertXpress MVP test have also been reported to be associatedwith BV and aerobic vaginitis.The Xpert Xpress MVP test performance has not been evaluatedin patients under the age of 14. [employer] DETECTION BY PCR NOT DETECTED Not Detect [facility] Ivette glab krusei PCR NOT DETECTED Not Detect [facility] Swab Vaginal structure / Unknown 02/18/2024 10:19 AM EST 02/18/2024 5:53 PM EST us Rashel Name LAB MICROBIOLOGY - GENERAL ORDER CORDELL Final Result [facility] [address] [place] [phone] * (ABNORMAL) Pap Smear (12/10/2023 10:46 AM EDT) SOURCE: SEE NOTE [facility] Comment:None given Report Status: TNP [facility] Clinical Information: SEE NOTE [facility] Comment:None given LMP: SEE NOTE [facility] Comment:NONE GIVEN Prev. PAP: SEE NOTE [facility] Comment:NONE GIVEN Prev. BX: SEE NOTE [facility] Comment:NONE GIVEN Statement Of Adequacy: SEE NOTE [facility] Comment:Satisfactory for dulce maria luation.Endocervical/transformation zone componentpresent. General Categorization: SEE NOTE(A) [facility] Comment:Cytology Results: Ep ithelial Cell Abnormality Interpretation/Resul t: SEE NOTE(A) [facility] Comment:Low Grade Squamous I ntraepithelial Lesion (LSIL) Cytology Comment SEE NOTE [facility] Comment:This case could not be evaluated with computerassisted technology. The slide was manuallyscreened according to routine procedures. Social Worker Palliative Care: SEE NOTE [facility] Comment:MRS, CT(ASCP)CT scre ening location: [facility] [address] [address]Efzdo preparation performed at: [facility], [address] [place] [id number] CLIA No. [id number] Review Social Worker Palliative Care: [facility] Pathologist SEE NOTE [facility] Comment:Krishna Ovalle M.D.,Robby contreras Certified in Anatomic Pathology, Clinical Pathology andCytopathology (electronic signature) PAP Infection [facility] See Note SEE NOTE [facility] Comment:EXPLANATORY NOTE:The Pap is a screening test for cervical cancer. It isnot a diagnostic test and is subject to false negativeand false positive results. It is most reliable when asatisfactory sample, regularly obtained, is submittedwith relevant clinical findings and history, and whenthe Pap result is evaluated along with historic andcurrent clinical information.THIS TEST WAS PERFORMED AT:[facility] [address] [phone] PANG MD Pap Vial Vaginal structure / Unknown 12/10/2023 10:46 AM EDT 12/10/2023 5:31 PM EDT Narrative [facility] - 12/21/2023 10:34 AM EDT SEE SCANNED RESULTS IN EMRVAGINA Paola Juares CNM LAB PATHOLOGY ORDERABLES Final Result [facility] [address] [place] [phone] from Last 3 Months or Most Recently Relevant to Health Maintenance Insurance [facility] C3 HSN PARTIAL Care Teams Device Test Engineer Relationship Specialty Start Date End Date Gemini Hennessy MD [address] [place] [phone] PCP - General Internal Medicine 11/01/22
--- OUTSIDE RECORDS SUMMARY | 2024-03-14 15:52 | XMS_ITS | Encounter Summary ---
Author Organization [employer] Address [address] [place] [address] 7t [place] [address] Care Team Providers Care Lemon Grower Name Role Phone Gemini Hennessy MD Primary Care Provide r Reason for Visit * Reason Onset Date Comments Nurse Triage 03/06/2024 Encounter Details Date Type Department Care Team ([facility] st Contact Info) Description 03/06/2024 Telephone [facility] [address] [place] [address] Gemini Hennessy MD [address] [place] [address] Nurse Triage Social History Tobacco Use Types Packs/Day Years [...] the past 12 months, has t he [email or web address] gas, oil or water company threatened to [...] encounter Miscellaneous Notes * Telephone Encounter - Yana Pineda RN - 03/06/2024 12:29 PM EST called pt to triage, spoke to pt. pt states treated about 3 weeks ago for UTI with resolution. pt states the last 3 days having urinary burning, mild frequency and urgency with mild back pain. pt denies fever, blood, strong odor, vaginal discharge, or other associated symptoms. advised no availableappt today or tomorrow to schedule and advised walk in center for recheck and possible urine testing. advised home care: rest, fluids, monitor temperature, and call back as needed. given location, hours, and wait times cautions. pt understands and agrees with plan. insurance verified. Protocol Used: Urinary Symptoms (Adult) Protocol-Based Disposition: See in Office or Video Visit Today or Tomorrow Video visit offer not recorded Positive Triage Question: * Patient wants to be seen * All higher-acuity triage questions were negative Care Advice Discussed: * Reasons To Call Back - Fever occurs - Pain or burning with urination - Unable to urinate and bladder feels full - You become worse * Telephone Encounter - Britta Evans - 03/06/2024 11:35 AM EST Symptoms: Vaginal Symptoms - Not Bleeding, Urination Pain Outcome: Schedule a same-day appointment or talk to a nurse or provider today Reason: Caller denied all higher acuity questions The caller accepted this outcome. Pt was seen and treated at [facility] on 02/17/25. Pt stated still experiencing symptoms after completing medication Contact pt at [phone] documented in this encounter Plan of Treatment Upcoming Encounters Date Type Department Care Team (Late st Contact Info) Description 04/17/2024 10:00 AM EST Office Visit [facility] [address] [place] [phone] Gemini Hennessy MD [address] [place] [phone] documented as of this encounter Visit Diagnoses Not on filedocumented in this encounter Additional Health Concerns Assessment Noted Time PHQ-9 Depression Total Score: 0 09/12/19 24 2:11 PM EDT documented as of this encounter Care Teams Lemon Grower Relationship Specialty Start Date End Date Gemini Hennessy MD [address] [place] [phone] PCP - General Internal Medicine 11/01/22 documented as of this encounter
--- OUTSIDE RECORDS SUMMARY | 2024-03-14 15:52 | XMS_ITS | Encounter Summary ---
Author Organization [employer] Address [address] [facility] 7t [place] [address] Care Team Providers Care Cso Name Role Phone Gemini Hennessy MD Primary Care Provide r Reason for Visit * Reason Onset Date Comments NTTS f/u 03/06/2024 Encounter Details Date Type Department Care Team (Late st Contact Info) Description 03/06/2024 Telephone [facility] 230 [place], [place] [phone] Guerita Peña, CHRISTY [address] [place] [address] NTTS f/u Social History Tobacco Use Types Packs/Day Years [...] encounter Miscellaneous Notes * Telephone Encounter - Guerita Peña RN - 03/06/2024 4:07 PM EST RN received NTTS from 03/05/24 stating: Recently took antibiotics, but I still have the symptoms. 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 Has not been sexually active. NTTS RN's advised patient to call office in AM. Per chart review, patient spoke to wall cleaner's today and was advised to seek WIC for re-evaluation.No further f/u needed. documented in this encounter Plan of Treatment Upcoming Encounters Date Type Department Care Team (Late st Contact Info) Description 04/17/2024 10:00 AM EST Office Visit [facility] [address] [place] [phone] Gemini Hennessy MD [address] [place] [address] documented as of this encounter Visit Diagnoses Not on filedocumented in this encounter Additional Health Concerns Assessment Noted Time PHQ-9 Depression Total Score: 0 09/12/19 24 2:11 PM EDT documented as of this encounter Care Teams Cso Relationship Specialty Start Date End Date Gemini Hennessy MD [address] [place] [address] PCP - General Internal Medicine 11/01/22 documented as of this encounter
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
--- OUTSIDE RECORDS SUMMARY | 2024-03-14 15:52 | XMS_ITS | Encounter Summary ---
Author Organization [employer] Address [address] [facility] [address] 7t [place] [address] Care Team Providers Care Teacher Theater Arts Name Role Phone Gemini Hennessy MD Primary Care Provide r Encounter Details Date Type Department Care Team ([facility] st Contact Info) Description 03/13/2024 Orders Only [facility] [address] [place], [place] [phone] Lydia Villagran NP [address] [place] [address] Dysuria (Primary Dx) Social History Tobacco Use Types Packs/Day Years [...] AM EDT documented as of this encounter Plan of Treatment Upcoming Encounters Date Type Department Care Team (Late st Contact Info) Description 04/17/2024 10:00 AM EST Office Visit [facility] [address] [place] [phone] Gemini Hennessy MD [address] [place] [phone] Scheduled Orders Name Type Priority Associated Diagnoses Orde r Schedule Mycoplasma/Ureaplas ma??Panel Microbiology Routine Dysuria Expected: 03/13/2024 (Approximate), Expires: 03/13/2025 documented as of this encounter Visit Diagnoses Diagnosis Dysuria- Primary documented in this encounter Additional Health Concerns Assessment Noted Time PHQ-9 Depression Total Score: 0 09/12/19 2:11 PM EDT documented as of this encounter Care Teams Teacher Theater Arts Relationship Specialty Start Date End Date Gemini Hennessy MD [address] [place] [phone] PCP - General Internal Medicine 11/01/22 documented as of this encounter
--- OUTSIDE RECORDS SUMMARY | 2024-03-14 15:52 | XMS_ITS | Encounter Summary ---
Author Organization [employer] Address [address] [facility] 7t [place] [address] Care Team Providers Care Legal Document Specialist Name Role Phone Gemini Hennessy MD Primary Care Provide r Reason for Visit * Reason Comments Med Refill Encounter Details Date Type Department Care Team ([facility] st Contact Info) Description 03/03/2024 Refill [facility] [address] [place] [phone] Name, MD Rashel [address] [place] [address] Social History Tobacco Use Types Packs/Day Years [...] Description 04/17/2024 10:00 AM EST Office Visit [facility] [address] [place] [address] Gemini Hennessy MD [address] [place] [address] documented as of this encounter Visit Diagnoses Not on filedocumented in this encounter Additional Health Concerns Assessment Noted Time PHQ-9 Depression Total Score: 0 09/12/19 24 2:11 PM EDT documented as of this encounter Care Teams Legal Document Specialist Relationship Specialty Start Date End Date Gemini Hennessy MD [address] [place] [address] PCP - General Internal Medicine 11/01/22 documented as of this encounter
--- OUTSIDE RECORDS SUMMARY | 2024-03-14 15:52 | XMS_ITS | Encounter Summary ---
Author Organization [email or web address] Address [address] [facility] 7t [place] [address] Care Team Providers Care Recreational Counselor Name Role Phone Gemini Hennessy MD Primary Care Provide r Reason for Visit * Reason Onset Date Comments Lab Orders 03/11/2024 Encounter Details Date Type Department Care Team ([facility] st Contact Info) Description 03/11/2024 Telephone [facility] [address] [place], [place] [phone] Sofía López RN [address] [place] [address] Lab Orders Social History Tobacco Use Types Packs/Day Years [...] encounter Miscellaneous Notes * Telephone Encounter - Lydia Villagran NP - 03/13/2024 1:38 PM EST Order has been placed for lab collect. Thank you * Telephone Encounter - Regina Lewis RN - 03/13/2024 1:32 PM EST Spoke to Lydia Villagran and Patient. Patient reports she is still experiencing symptoms of dysuria, agreeable to go to the lab to recollect. Lydia please order lab. * Telephone Encounter - Regina Lewis RN - 03/11/2024 9:09 AM EST Please follow up with Lydia Villagran for plan of care- Does Patient need a recollection? Follow up [facility] Patient as appropriate. * Telephone Encounter - Sofía López RN - 03/11/2024 8:13 AM EST Received message from [facility] reporting they received an order for a mycoplasma/ureaplasma panel with a pink top swab. The wrong swab was used. The correct specimen collection kit is either a yellow Hologic Aptima urine tube or a clean urine cup and the lab can transfer the urine into the yellow Hologic Aptima urine tube. The patient will need to submit a new specimen. Message sent to SHASHI Brown and [facility] Process Project Engineer. documented in this encounter Plan of Treatment Upcoming Encounters Date Type Department Care Team (Late st Contact Info) Description 04/17/2024 10:00 AM EST Office Visit [facility] [address] [place] [phone] Gemini Hennessy MD [address] [place] [phone] documented as of this encounter Visit Diagnoses Not on filedocumented in this encounter Additional Health Concerns Assessment Noted Time PHQ-9 Depression Total Score: 0 09/12/19 24 2:11 PM EDT documented as of this encounter Care Teams Recreational Counselor Relationship Specialty Start Date End Date Gemini Hennessy MD [address] [place] [phone] PCP - General Internal Medicine 11/01/22 documented as of this encounter
--- OUTSIDE RECORDS SUMMARY | 2024-03-14 15:52 | XMS_ITS | Encounter Summary ---
Author Organization [employer] Address [address] [facility] 7t [place] [address] Care Team Providers Care Dining Room Attendant Name Role Phone Gemini Hennessy MD Primary Care Provide r Reason for Visit * Reason Comments UTI Encounter Details Date Type Department Care Team ([facility] Contact Info) Description 02/18/2024 10:40 AM EST Office Visit [facility] [address] [place] [address] [phone] NameRashel MD [address] [place] [address] Dysuria (Primary Dx); Vaginal itching; 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 Social History Tobacco Use Types Packs/Day Years [...] Sign Reading Time Taken Comments Blood Pressure 118/79 02/18/2024 10:14 AM EST Pulse 80 02/18/2024 10:14 AM EST Temperature 36.3 ??C (97.4 ??F) 02/18/2024 10:[address] Respiratory Rate 18 02/18/2024 10:14 AM EST Oxygen Saturation 100% 02/18/2024 10:14 AM EST Inhaled Oxygen Concentration - - Weight 62.8 kg (138 lb 6.4 oz) 02/18/2024 10:14 AM EST Height 167.6 cm (5' 6 ) 02/18/2024 10:14 AM EST Body Mass Index 22.34 02/18/2024 10:14 AM EST documented in this encounter Progress Notes * Rashel Serrano MD - 02/18/2024 10:40 AM EST Subjective Patient ID: Елена Cordoba is a 28 y.o. female who presents for UTI. Patient comes for a sick visit complaining of several days of dysuria, vaginal discharge. She explains to me that [facility] [place] and was diagnosed with mycoplasma genitalium. She was prescribed a course of doxycycline that did not provide much improvement. Thepatient is sexually active with 1 partner. Review of Systems Constitutional: Negative for chills and fever. HENT: Negative for sore throat. Respiratory: Negative for cough, shortness of breath and wheezing. Cardiovascular: Negative for chest pain, palpitations and leg swelling. Gastrointestinal: Negative for abdominal pain. Genitourinary: Positive for dysuria and vaginal discharge. Visit Vitals BP 118/79 (BP Location: Left arm, Patient Position: Sitting, BP Cuff Size: Adult) Pulse 80 Temp 97.4 ??F (36.3 ??C) (Temporal) Resp 18 Ht 5' 6 (1.676 m) Wt 138 lb 6.4 oz (62.8 kg) SpO2 100% BMI 22.34 kg/m?? Smoking Status Never BSA 1.71 m?? Objective Physical Exam Constitutional: General: She is not in acute distress. Appearance: She is not toxic-appearing. Cardiovascular: Rate and Rhythm: Normal rate and regular rhythm. Pulmonary: Effort: Pulmonary effort is normal. No respiratory distress. Latest Reference Range & Units 02/18/24 10:40 02/18/24 11:01 Color, UA Yellow Specific [place], UA 1.025 pH, UA 6.0 Ketones, UA Negative Protein, UA Negative Nitrite, UA Negative, None Detected Negative RBC, UA Negative, None Detected Positive ! Clarity, UA Clear Glucose, UA Negative Leukocytes, UA Negative, Rare, Trace Negative Bilirubin UA Negative Urobilinogen, UA 0.2 HCG UR QUAL Negative, Indeterminate, None Detected, Invalid, Specimen unsatisfactory for evaluation, Weakly Positive Negative Appearance, UA clear !: Data is abnormal Assessment/Plan Diagnoses and all orders for this visit: Dysuria Comments: I [facility] from [facility] [place] and she indeed tested positive for mycoplasma genitalium infection in the urine. She was given a course of doxycycline that did not provide significant symptomatic improvement. She did not have any other STD testing done. Her partner has not been tested. Today her urine test is negative. I explained to her that mycoplasma genitalium is an STD. I recommended testing for other STDs. I recommended to inform her partner so he can gettested and treated. I recommended 7-day course of Doxy followed by a 7-day course of moxifloxacin. She is recommended to call PCP if not much better after the 14 days of treatment. I recommended to use condoms for STD prevention. Orders: - POCT Urinalysis - Chlamydia/N. Gonorrhoeae RNA, TMA, Urogenitial - Culture, Urine, Routine - HIV-1/2 Antigen and Antibodies, Fourth Generation, with Reflexes; Future - RPR (Monitor) with Reflex to Titer; Future - Hepatitis C Antibody with Reflex to HCV, RNA, Quantitative, Real-Time PCR; Future - Hepatitis B surface antigen, EIA; Future - Hepatitis B Surface Antibody, Qualitative; Future - POCT Urine Vaginal itching - Bacterial Vaginosis Panel - Chlamydia/N. Gonorrhoeae RNA, TMA, Urogenitial - HIV-1/2 Antigen and Antibodies, Fourth Generation, with Reflexes; Future - RPR (Monitor) with Reflex to Titer; Future - Hepatitis C Antibody with Reflex to HCV, RNA, Quantitative, Real-Time PCR; Future - Hepatitis B surface antigen, EIA; Future - Hepatitis B Surface Antibody, Qualitative; Future - POCT Urine 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 - HIV-1/2 Antigen and Antibodies, Fourth Generation, with Reflexes; Future - RPR (Monitor) with Reflex to Titer; Future - Hepatitis C Antibody with Reflex to HCV, RNA, Quantitative, Real-Time PCR; Future - Hepatitis B surface antigen, EIA; Future - Hepatitis B Surface Antibody, Qualitative; Future - POCT Urine Other orders - doxycycline (Vibra-Tabs) 100 MG tablet; Take 1 tablet (100 mg) by mouth 2 times daily for 7 days.Take with a full glass of water and do not lie down for at least 30 minutes after. - moxifloxacin (Avelox) 400 MG tablet; Take 1 tablet (400 mg) by mouth Once per day for 7 days. documented in this encounter Plan of Treatment Upcoming Encounters Date Type Department Care Team (Late st Contact Info) Description 04/17/2024 10:00 AM EST Office Visit [facility] MEDICINE [address] [place] [phone] Gemini Hennessy MD [address] [place] [address] documented as of this encounter Procedures Procedure Name Priority Date/Time Associated Diagnosis Comments HEPATITIS C AB W/REFL TO HCV RNA, QN, PCR Routine 02/18/2024 11:11 AM EST Dysuria Vaginal itching 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 CHLAMYDIA/N. GONORRHOEAE RNA, TMA, UROGENITAL Routine 02/18/2024 11:11 AM EST Dysuria Vaginal itching HEPATITIS B SURFACE ANTIGEN, EIA Routine 02/18/2024 11:11 AM EST Dysuria Vaginal itching 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 RPR (MONITOR) W/REFL TITER Routine 02/18/2024 11:11 AM EST Dysuria Vaginal itching 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 HIV 1/2 ANTIGEN/ANTIBODY, FOURTH GENERATION W/RFL Routine 02/18/2024 11:11 AM EST Dysuria Vaginal itching 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 HEPATITIS B SURFACE ANTIBODY, QUALITATIVE Routine 02/18/2024 11:11 AM EST Dysuria Vaginal itching 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 CULTURE, URINE, ROUTINE Routine 02/18/2024 11:11 AM EST Dysuria POCT , URINE Routine 02/18/2024 11:01 AM EST Dysuria Vaginal itching 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 POCT URINALYSIS DIPSTICK Routine 02/18/2024 10:40 AM EST Dysuria BACTERIAL VAGINOSIS PANEL Routine 02/18/2024 10:19 AM EST Vaginal itching documented in this encounter Results * Hepatitis B Surface Antibody, Qualitative (02/18/2024 11:11 AM EST) ~Hepatitis B Surface Antibody NONREACTIVE Nonreactive [facility] Comment:Nonreactive: < 8.00 mIU/mL Blood Venous blood specimen / Unknown 02/18/2024 11:11 AM EST 02/18/2024 1:18 PM EST us Rashel Serrano MD LAB BLOOD ORDERABLES Final Resul t Performing Organization Address [facility] de Phone Number [facility] [address] [place] [phone] * Hepatitis B surface antigen, EIA (02/18/2024 11:11 AM EST) Hepatitis B Surface Ag Negative Negative [facility] Blood Venous blood specimen / Unknown 02/18/2024 11:11 AM EST 02/18/2024 1:18 PM EST us Rashel Serrano MD LAB BLOOD ORDERABLES Final Resul t Performing Organization Address [facility] Phone Number [facility] [address] [place] [phone] * Hepatitis C Antibody with Reflex to HCV, RNA, Quantitative, Real-Time PCR (02/18/2024 11:11 AM EST) Hepatitis C Antibody Nonreactive Nonreactive [facility] Comment:Antibodies to HCV no t detected; does not exclude early acuteHCV infection. Blood Venous blood specimen / Unknown 02/18/2024 11:11 AM EST 02/18/2024 1:18 PM EST us Rashel Serrano MD LAB BLOOD ORDERABLES Final Resul t Performing Organization Address [facility] Phone Number [facility] [address] [place] [phone] * RPR (Monitor) with Reflex to??Titer (02/18/2024 11:11 AM EST) RPR (Monitor) w/Refl Titer NON-REACTI VE NON-REACT JAYDEN [facility] Comment:THIS TEST WAS PERFOR MED AT:[id number] [place] [phone] PANG MD Rapid Plasma Reagin Ab Titer TNP [facility] Blood Venous blood specimen / Unknown 02/18/2024 11:11 AM EST 02/18/2024 1:18 PM EST us Rashel Serrano MD LAB BLOOD ORDERABLES Final Resul t Performing Organization Address [facility] Co de Phone Number [facility] [address] [place] [phone] * HIV-1/2 Antigen and Antibodies, Fourth Generation, with Reflexes (02/18/2024 11:11 AM EST) HIV AB/AG Nonreactive Nonreactive [facility] Comment:HIV-1 p24 Ag and/or HIV-1/HIV-2 Ab not detected.A test result that is nonreactive does not exclude thepossibility of exposure to or infection with HIV-1 and/orHIV-2. Nonreactive results in this assay for individualswith prior exposure to HIV-1 and/or HIV-2 may be due toantigen and antibody levels that are below the limit ofdetection of this assay.The [employer] HIV Ag/Ab Combo assay result andsupplemental assay results should be interpreted inconjunction with the patient's clinical presentation,history and other laboratory results. If the results areinconsistent with clinical evidence, additional testing issuggested to confirm the result. Blood Venous blood specimen / Unknown 02/18/2024 11:11 AM EST 02/18/2024 1:18 PM EST us Rashel Serrano MD LAB BLOOD ORDERABLES Final Resul t Performing Organization Address [facility] Co de Phone Number [facility] [address] [place] [address] [phone] * Culture, Urine, Routine (02/18/2024 11:11 AM EST) Urine Urine specimen obtained by clean catch procedure / Unknown 02/18/2024 11:11 AM EST 02/18/2024 1:18 PM EST Comment:UACC Narrative [facility] - 02/19/2024 10:56 AM EST Urine Culture No growth. Specimen Source: Urine clean catch us Rashel Name MD LAB MICROBIOLOGY - GENERAL ORDER CORDELL Final Result [facility] [address] [place] [phone] * Chlamydia/N. Gonorrhoeae RNA, TMA, Urogenitial (02/18/2024 11:11 AM EST) CT PCR NOT DETECTED Not Detect. [facility] Comment:A not detected test result [...] psychologicalconsequences. NG PCR NOT DETECTED Not Detect. [facility] Comment:A not detected test result [...] AM EST 02/18/2024 1:18 PM EST Narrative [facility] - 02/18/2024 3:04 PM EST Urine us Rashel Serrano MD LAB MICROBIOLOGY - GENERAL ORDER CORDELL Final Result Performing Organization Address City/State/[facility] Co de Phone Number [facility] [address] [place] [phone] * POCT Urine (02/18/2024 11:01 AM EST) Preg Test, Ur Negative Negative, Indeterminate, None Detected, Invalid, Specimen unsatisfactory for evaluation, Weakly Positive Urine 02/18/2024 11:0 1 AM EST us Rashel Serrano MD POINT OF CARE TEST ENTER/EDIT OR DERABLES Final Result * (ABNORMAL) POCT Urinalysis (02/18/2024 10:40 AM EST) Color, UA Yellow Clarity, UA Clear Glucose, UA Negative Bilirubin, UA Negative Ketones, UA Negative Spec Grav, UA 1.025 Blood, UA Positive(A) Negative, None Detected Comment:small pH, UA 6.0 Protein, UA Negative Urobilinogen, UA 0.2 Leukocytes, UA Negative Negative, Rare, Trace Nitrite, UA Negative Negative, None Detected Appearance, UA clear Urine 02/18/2024 10:4 0 AM EST us Rashel Serrano MD POINT OF CARE TEST ENTER/EDIT OR DERABLES Final Result * Bacterial Vaginosis Panel (02/18/2024 10:19 AM EST) TRICHOMONAS VAGINALIS DETECTION BY PCR NOT DETECTED Not Detect [facility] BACTERIAL VAGINOSIS DETECTION BY PCR NEGATIVE Negative [facility] Comment:The BV organism targ ets [...] DETECTION BY PCR NOT DETECTED Not Detect [facility] Ivette glab krusei PCR NOT DETECTED Not Detect [facility] Swab Vaginal structure / Unknown 02/18/2024 10:19 AM EST 02/18/2024 5:53 PM EST us Rashel Serrano MD LAB MICROBIOLOGY - GENERAL ORDER CORDELL Final Result [facility] [address] [place] [phone] documented in this encounter Visit Diagnoses Diagnosis Dysuria- Primary Vaginal itching Pruritus of genital organs 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 documented in this encounter Additional Health Concerns Assessment Noted Time PHQ-9 Depression Total Score: 0 09/12/19 24 2:11 PM EDT documented as of this encounter Care Teams Dining Room Attendant Relationship Specialty Start Date End Date Gemini Hennessy MD [address] [place] [phone] PCP - General Internal Medicine 11/01/22 documented as of this encounter
--- OUTSIDE RECORDS SUMMARY | 2024-03-14 15:52 | XMS_ITS | Encounter Summary ---
Author Organization [employer] Address [address] [facility] 7t [place] [address] Care Team Providers Care Ancillary Services Manager Therapy Name Role Phone Gemini Hennessy MD Primary Care Provide r Encounter Details Date Type Department Care Team (Latest Contact Info) Description 03/07/2024 Travel Social History Tobacco Use Types Packs/Day Years [...] Description 04/17/2024 10:00 AM EST Office Visit [facility] MEDICINE [address] [place] [phone] Gemini Hennessy MD [address] [place] [address] documented as of this encounter Visit Diagnoses Not on filedocumented in this encounter Additional Health Concerns Assessment Noted Time PHQ-9 Depression Total Score: 0 09/12/19 24 2:11 PM EDT documented as of this encounter Care Teams Ancillary Services Manager Therapy Relationship Specialty Start Date End Date Gemini Hennessy MD [address] [place] [phone] PCP - General Internal Medicine 11/01/22 documented as of this encounter
--- OUTSIDE RECORDS SUMMARY | 2024-03-14 15:52 | XMS_ITS | Encounter Summary ---
Author Organization [employer] Address [address] [place] [address] [address] [place] [address] Care Team Providers Care Supply Chain Program Manager Name Role Phone Gemini Hennessy MD Primary Care Provide r Reason for Visit * Reason Onset Date Comments Nurse Triage 02/15/2024 Encounter Details Date Type Department Care Team ([facility] st Contact Info) Description 02/15/2024 Telephone [facility] MEDICINE [address] [place] [address] Gemini Hennessy MD [address] [place] [address] Nurse Triage Social History Tobacco Use Types [...] encounter Miscellaneous Notes * Telephone Encounter - Liliane Glover RN - 02/18/2024 9:32 AM EST Call returned to лЕена Cordoba to triage below. Reports having sx of pain with passing urine. Pt alsohaving vaginal itching. No odor, dark color or blood. Endorses frequency. Pt endorses increased vaginal discharge. No color or odor. No vaginal rash. Pt having mild flank pain. Pt advised of disposition, agrees to seek [facility] for exam as no sick on site availability on teams at time of call. Reviewed [facility] operating hours and that wait times vary. Reviewed home care advise, ER precautions and reasons to call back. Protocol Used: Urinary Symptoms (Adult) Protocol-Based Disposition: See in Office or Video Visit Today Video visit offer not recorded Positive Triage Question: * Side (flank) or lower back pain present * All higher-acuity triage questions were negative Care Advice Discussed: * Reasons To Call Back - Fever occurs - Pain or burning with urination - Unable to urinate and bladder feels full - You become worse * Telephone Encounter - Ethan Bailey - 02/18/2024 9:30 AM EST Tc from pt calling again regarding message below. * Telephone Encounter - Cristal Beavers - 02/15/2024 8:13 AM EST Symptom: Urine Symptoms Outcome: Schedule an urgent appointment (within 4 hours) or talk to a nurse or provider soon Reason: burning when passing urine (peeing) The caller accepted this outcome. Please contact at [phone] documented in this encounter Plan of Treatment Upcoming Encounters Date Type Department Care Team (Late st Contact Info) Description 04/17/2024 10:00 AM EST Office Visit [facility] MEDICINE [address] [place] [address] Gemini Hennessy MD [address] [place] [address] documented as of this encounter Visit Diagnoses Not on filedocumented in this encounter Additional Health Concerns Assessment Noted Time PHQ-9 Depression Total Score: 0 09/12/19 24 2:11 PM EDT documented as of this encounter Care Teams Supply Chain Program Manager Relationship Specialty Start Date End Date Gemini Hennessy MD [address] [place] [address] PCP - General Internal Medicine 11/01/22 documented as of this encounter
== END 2024-03-14 14:12 | disposition home or self-care (01) ==
LOC: HO.HHCL 14:11
PROVIDERS: Visit Provider Nurse Practitioner
DX: Z13.89 Encounter for screening for other disorder (principal)
CPT/HCPCS: 87563; 87798

== ENCOUNTER 2024-03-26 10:55 | Outpatient (REF) | payer OTHER, MEDICAID, SELFPAY ==
--- OUTSIDE RECORDS SUMMARY | 2024-03-26 12:14 | XMS_ITS | Encounter Summary ---
Author Organization [employer] Address [address] [facility] [address]t [place] [address] Care Team Providers Care Lacrosse Player Name Role Phone Gemini Hennessy MD Primary Care Provide r Reason for Visit * Reason Onset Date Comments Lab Orders 03/11/2024 Encounter Details Date Type Department Care Team ([facility] st Contact Info) Description 03/11/2024 Telephone [facility] MEDICINE [address] [place], [place] [phone] Sofía López RN [address] [place] [phone] Lab Orders Social History Tobacco Use Types [...] Does Patient need a recollection? Follow up [facility] Patient as appropriate. * Telephone Encounter - Sofía López RN - 03/11/2024 8:13 AM EST Received message from [facility] reporting they received an order for [...] specimen. Message sent to SHASHI Brown and [facility] Site Damage Prevention Technician. documented in this encounter Plan of Treatment Upcoming Encounters Date Type Department Care Team (Late st Contact Info) Description 04/17/2024 10:00 AM EST Office Visit [facility] MEDICINE [address] [place] [phone] Gemini Hennessy MD [address] [place] [phone] documented as of this encounter Visit Diagnoses Not on filedocumented in this encounter Additional Health Concerns Assessment Noted Time PHQ-9 Depression Total Score: 0 09/12/19 24 2:11 PM EDT documented as of this encounter Care Teams Lacrosse Player Relationship Specialty Start Date End Date Gemini Hennessy MD [address] [place] [phone] PCP - General Internal Medicine 11/01/22 documented as of this encounter
--- OUTSIDE RECORDS SUMMARY | 2024-03-26 12:14 | XMS_ITS | Encounter Summary ---
Author Organization [employer] Address [address] [facility] 7[address] [place] [address] Care Team Providers Care Product Safety Test Engineer Name Role Phone Gemini Hennessy MD Primary Care Provide r Reason for Visit * Reason Comments TRANSFER PATIENT Encounter Details Date Type Department Care Team (Late st Contact Info) Description 09/12/2023 2:15 PM EDT Office Visit [facility] [address] [place] [address] Gemini Hennessy MD [address] [place] [address] Mild intermittent asthma without complication (Primary Dx); [...] mouth Once per day. 30 tablet 2 Irk-Bp-Qaxgrq 0.18/0.215/0.25 MG-25 MCG tablet TAKE 1 TABLET [...] Description 04/17/2024 10:00 AM EST Office Visit [facility] [address] [place], [place] [phone] Gemini Hennessy MD [address] [place], [place] [phone] documented as of this encounter Procedures Procedure [...] Load <15 NOT DETECTED NOT DETECTED IU/mL [facility] HCV Log PCR <1.18 NOT DETECTED NOT DETECTED Log IU/mL [facility] Comment:For additional infor aidee, please refer tohttp://education.[employer]/faq/PPH64n8(This link is being provided for informational/educational purposes only.)THIS TEST WAS PERFORMED AT:[address] [place] [phone] PANG MD Blood 09/12/2023 3:23 PM EDT 09/12/2023 4:10 PM EDT us Gemini Hartman MD LAB BLOOD ORDERABLES Final Result [facility] [address] [place] [phone] * HIV-1/2 Antigen and Antibodies, Fourth Generation, with Reflexes (09/12/2023 3:23 PM EDT) HIV AB/AG Nonreactive Nonreactive [facility] Comment:HIV-1 p24 Ag and/or HIV-1/HIV-2 Ab not detected.A test result that is nonreactive does not exclude thepossibility of exposure to or infection with HIV-1 and/orHIV-2. Nonreactive results in this assay for individualswith prior exposure to HIV-1 and/or HIV-2 may be due toantigen and antibody levels that are below the limit ofdetection of this assay.The CXOWARE HIV Ag/Ab Combo assay result andsupplemental assay results should be interpreted inconjunction with the patient's clinical presentation,history and other laboratory results. If the results areinconsistent with clinical evidence, additional testing issuggested to confirm the result. Blood Venous blood specimen / Unknown 09/12/2023 3:23 PM EDT 09/12/2023 4:10 PM EDT us Gemini Hartman MD LAB BLOOD ORDERABLES Final Result [facility] [address] [place] [phone] * Lipid Panel with Reflex to Direct LDL (09/12/2023 3:23 PM EDT) Triglycerides 118 <150 mg/dL [facility] Comment:Desirable Triglyceri de: less than 150 mg/dLBorderline High Triglyceride 150-199 mg/dLHigh Triglyceride: 200-499 mg/dLVery High Triglyceride: greater than or equal to 5OO mg/dL Cholesterol 170 <200 mg/dL [facility] Comment:Desirable Cholestero l: less than 200 mg/dLBorderline High Cholesterol: 200-239 mg/dLHigh Cholesterol: greater than 239 mg/dL LDL Cholesterol Calculated 84 <100 mg/dL [facility] Comment:Desirable LDL: less than 100 mg/dLNear Optimal/Above Optimal LDL: 110- 129 mg/dLBorderline High LDL: 130-159 mg/dLHigh LDL: 160-189 mg/dLVery High LDL: greater than or equal to 190 mg/dL HDL Cholesterol 63 >40 mg/dL [facility] Comment:Desirable HDL: great er than 40 mg/dL Note: This HDL assay may give artificially low results in patients with liver disease. Blood 09/12/2023 3:23 PM EDT 09/12/2023 4:10 PM EDT us Gemini Hartman MD LAB BLOOD ORDERABLES Final Result [facility] [address] [place], [place] [phone] * (ABNORMAL) CBC auto differential (09/12/2023 3:23 PM EDT) White Blood Count 6.9 4.8 - 10.8 X10*3/uL [facility] Red Blood Count 4.49 4.20 - 5.50 X10*6/uL [facility] Hemoglobin 13.1 12.0 - 16.0 g/dl [facility] Hematocrit 39.9 37.0 - 47.0 % [facility] Mean Corpuscular Volume 88.9 80.0 - 98.0 fL [facility] Mean Corpuscular Hemoglobin 29.2 27.0 - 33.0 pg [facility] Mean Corpuscular HGB Conc 32.8 31.0 - 35.0 g/dl [facility] Red Cell Distribution Width 13.1 11.0 - 16.0 % [facility] Platelet Count 349 160 - 400 X10*3/uL [facility] Mean Platelet Volume 9.8 9.4 - 12.3 fL [facility] Neutrophils Percent Auto 55.7 45 - 73 % [facility] Imm Gran Pct Auto 0.4 0.0 - 0.4 % [facility] Lymphocytes Percent Auto 28.8 20 - 40 % [facility] Monocytes Percent Auto 11.8(H) 2 - 11 % [facility] Eosinophils Percent Auto 2.7 0 - 4 % [facility] Basophils Percent Auto 0.6 0 - 2 % [facility] NRBC Pct Auto 0.0 0.0 - 0.2 /100WBC [facility] Neutrophils Absolute Auto 3.9 2.0 - 8.3 x10*3/uL [facility] Imm Gran Abs Auto 0.03 0.00 - 0.03 X10*3/uL [facility] Lymphocytes Absolute Auto 2.0 1.2 - 4.9 X10*3/uL [facility] Monocytes Absolute Auto 0.8 0.1 - 1.2 X10*3/uL [facility] Eosinophils Absolute Auto 0.2 0.0 - 0.4 X10*3/uL [facility] Basophils Absolute Auto 0.0 0.0 - 0.2 X10*3/uL [facility] NRBC Abs Auto 0.000 0.0 - 0.012 X10*3/uL [facility] Blood Venous blood specimen / Unknown 09/12/2023 3:23 PM EDT 09/12/2023 4:10 PM EDT us Gemini Hartman MD LAB BLOOD ORDERABLES Final Result [facility] [address] [place], [place] [phone] * (ABNORMAL) Comprehensive Metabolic Panel (09/12/2023 3:23 PM EDT) Sodium 141 135 - 145 mmol/L [facility] Potassium 3.9 3.3 - 5.1 mmol/L [facility] Chloride 104 96 - 108 mmol/L [facility] Carbon Dioxide 25 22 - 29 mmol/L [facility] Anion Gap 16 12 - 20 [facility] Urea Nitrogen (BUN) 7(L) 9 - 16 mg/dL [facility] Creatinine, Serum 0.83 0.5 - 1.4 mg/dL [facility] Estimated Glomerular Filt Rate >60 [facility] Comment:NOTE: For -Am erican individuals, multiply the result by 1.210.Chronic Kidney Disease: Estimated GFR < 60 mL/min/1.63b8Nsumzf Kidney Disease: Estimated GFR < 15 mL/min/1.73m2 Glucose 77 60 - 115 mg/dL [facility] Calcium 9.8 8.4 - 10.2 mg/dL [facility] Bilirubin, Total 0.3 0.0 - 1.0 mg/dL [facility] Aspartate Amino Transferase 11 5 - 31 U/L [facility] Alanine Aminotransferase 9 0 - 31 U/L [facility] Total Protein 8.2(H) 6.5 - 8.0 g/dL [facility] Albumin Level 4.6 3.5 - 5.0 g/dL [facility] Alkaline Phosphatase 66 39 - 117 U/L [facility] Blood Venous blood specimen / Unknown 09/12/2023 3:23 PM EDT 09/12/2023 4:10 PM EDT Gemini Hartman MD LAB BLOOD ORDERABLES Final Result [facility] [address] [place] [phone] * Hemoglobin A1c (09/12/2023 3:23 PM EDT) Hemoglobin A1c 4.8 <6.0 % [facility] Comment:Hemoglobin A1C Refer ence Range Adults: 4.8 - 6.0 % Non diabetic: < 6.0 % Goal: < 7.0 %Additional Action Suggested: > 8.0 %Note: Hemoglobin A1c results are invalid for patients with abnormal amounts of HbF. Blood transfusions may impact the HbA1c concentration in the patient sample. Estimated Average Glucose 91 mg/dL [facility] Comment:eAG = Estimated ave rage glucose which is %A1C expressed asaverage glucose, using the formula of the [id number]-IluqzogBmtfils Glucose study (ADAG), Diabetes Care, Vol.31,#8,2007 Blood Venous blood specimen / Unknown 09/12/2023 3:23 PM EDT 09/12/2023 4:10 PM EDT us Gemini Hartman MD LAB BLOOD ORDERABLES Final Result [facility] [address] [place] [phone] documented in this encounter Visit Diagnoses Diagnosis Mild intermittent asthma without complication- Primary Health care maintenance documented in this encounter Additional Health Concerns Assessment Noted Time PHQ-9 Depression Total Score: 0 09/12/19 2:11 PM EDT documented as of this encounter Care Teams Product Safety Test Engineer Relationship Specialty Start Date End Date Gemini Hennessy MD [address] [place] [phone] PCP - General Internal Medicine 11/01/22 documented as of this encounter
--- OUTSIDE RECORDS SUMMARY | 2024-03-26 12:14 | XMS_ITS | Encounter Summary ---
Author Organization [employer] Address [address] [facility] [address] [place] [address] Care Team Providers Care Construction Driller Name Role Phone Gemini Hennessy MD Primary Care Provide r Encounter Details Date Type Department Care Team ([facility] st Contact Info) Description 03/13/2024 Orders Only [facility] [address] [place], [place] [phone] Lydia Villagran NP [address] [place] [address] Dysuria (Primary Dx) Social History Tobacco Use [...] Description 04/17/2024 10:00 AM EST Office Visit [facility] [address] [place] [address] Gemini Hennessy MD [address] [place] [address] documented as of this encounter Procedures Procedure Name Priority Date/Time Associated Diagnosis Comments MYCOPLASMA/UREAPLAS MA PANEL Routine 03/14/2024 2:14 PM EST Dysuria documented in this encounter Results * Mycoplasma/Ureaplasma??Panel (03/14/2024 2:14 PM EST) Tree(R), Mycoplasma Hominis, Real-Time Pcr [facility] Comment:TNPTEST NOT PERFORME DNo suitable specimen received.Please review the testrequirements [email or web address] TEST PERFORMED AT:[employer]/[id number] [place] [phone] DIRECTOR: PRICILLA DUFFY MD, PHD Mycoplasma Genitalium, rRNA,TMA [facility] U. Parvum DNA [facility] Comment:TNPTEST NOT PERFORME DNo suitable specimen received.Please review the testrequirements [email or web address] TEST PERFORMED AT:[employer]/[id number] [place], [place] [phone] DIRECTOR: PRICILLA DUFFY MD, PHD U. Urealyticum DNA [facility] Urine (Urine, Random) 03/14/2024 2:14 PM EST 03/14/2024 4:15 PM EST Lydia Navarrete SPECIAL EDUCATION TEACHER LAB MICROBIOLOGY - [facility] KRISTINA ABRAHAM Final Result [facility] [address] [place] [phone] documented in this encounter Visit Diagnoses Diagnosis Dysuria- Primary documented in this encounter Additional Health Concerns Assessment Noted Time PHQ-9 Depression Total Score: 0 09/12/19 24 2:11 PM EDT documented as of this encounter Care Teams Construction Driller Relationship Specialty Start Date End Date Gemini Hennessy MD [address] [place] [phone] PCP - General Internal Medicine 11/01/22 documented as of this encounter
--- OUTSIDE RECORDS SUMMARY | 2024-03-26 12:14 | XMS_ITS | Clinical Summary ---
Author Organization [employer] Address [address] [place] [address] 7t [place] [address] Care Team Providers Care Regional Liaison Name Role Phone Gemini Hennessy MD Primary [...] for 10 days. 20 tablet 4 Active Per-Ke-Rooutu 0.18/0.215/0.25 MG-25 MCG tablet TAKE 1 TABLET [...] Encounters Date Type Department Care Team Description 03/19/2024 Telephone [facility] [address] [place] [address] Sofía López RN Lab Orders 03/14/2024 Orders Only [facility] [address] [place] [address] Lydia Villagran NP 03/13/2024 Orders Only [facility] [address] [place] [address] 99902 Lydia Villagran NP Dysuria (Primary Dx) 03/11/2024 Telephone [facility] [address] [place] [address] Sofía López RN Lab Orders 03/07/2024 2:00 PM EST Office Visit [facility] [address] [place] [address] Dysuria (Primary Dx); UTI symptoms 03/07/2024 Travel 03/06/2024 Telephone [facility] [address] [place] [address] Guerita Peña, CHRISTY NTTS f/u 03/06/[address] [address] Gemini Hennessy MD Nurse Triage 03/03/2024 Refill [facility] [address] [place] [address] Rashel Serrano MD 02/18/2024 10:40 AM EST [facility] [address] [address] Rashel Serrano MD Dysuria (Primary Dx); Vaginal itching; 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 02/15/2024 Telephone [facility] [address] [place] [address] Gemini Hennessy MD Nurse Triage 01/22/2024 Refill [facility] [address] [address] Diana Pyle FNP 12/31/[address] [address] Galilea Locke, CHRISTY Results from Last 3 Months Immunizations Name Administration Dates Next Due DTaP 04/03/2001, 0,06/25/1998,04/22,02/22/1998 HPV, Quadrivalent 01/29/2014,09/19/2011,08/26/19 11 Hep B, Adolescent or Pediatric 06/25/1998,1997,1997 Hib (HbOC) 05/09/1999, 9,04/22/1998,02/22 IPV 04/03/2002, 0,04/22/1998,02/22 Influenza injectable quadriv alent preservative free 11/26/2022,12/08/2020 Influenza live intranasal qu adrivalent LIAV4 01/29/2014 Influenza, live, intranasal 12/26/2012,12/14/200 7 MMR 04/03/2002,02/21/1999 Meningococcal MCV4P ACYW-135 01/29/2014,08/26/19 [...] Description 04/17/2024 10:00 AM EST Office Visit [facility] [address] [place], [place] [phone] Gemini Hennessy MD [address] [place] [address] Health Maintenance Due Date Last Done Comments Pneumococcal Vaccine: Pediatrics (0 to 5 Years) and At-Risk Patients (6 to 49) Years) (1 of 2 - PCV) 2016 COVID-19 Vaccine ( season) 2023 11/26/2022, 07/07/2020, [...] Procedure Name Priority Date/Time Associated Diagnosis Comments CANCELLED SEROLOGY Routine 03/14/2024 2: 14 PM EST MYCOPLASMA/UREAPLASM A PANEL Routine 03/14/2024 2:14 PM EST Dysuria POCT URINALYSIS DIPSTICK Routine 03/07/2024 1:16 PM [...] Recently Relevant to Health Maintenance Results * Cancelled Serology (03/14/2024 2:14 PM EST) Only the most recent of2 resultswithin the time period is included. Cancelled Serology SEE NOTE [facility] Comment:THE FOLLOWING TESTS WERE CANCELLED: MYCO UREAPL PNLREASON: NO SUITABLE SPECIMEN RECEUVED BY REFERENCE LAB 03/14/2024 2:14 PM EST 03/14/2024 4:15 PM EST [facility] Appra DIAL POLISHER HISTORICAL/NON ORDERABLE LABS F inal Result [facility] [address] [place] [phone] * Mycoplasma/Ureaplasma??Panel (03/14/2024 2:14 PM EST) Sureswab(R), Mycoplasma Hominis, Real-Time Pcr [facility] Comment:TNPTEST NOT PERFORME DNo suitable specimen received.Please review the testrequirements [email or web address] TEST PERFORMED AT:[email or web address] [id number] [place] [phone] DIRECTOR: PRICILLA DUFFY MD, PHD Mycoplasma Genitalium, rRNA,TMA [facility] U. Parvum DNA [facility] Comment:TNPTEST NOT PERFORME DNo suitable specimen received.Please review the testrequirements [email or web address] TEST PERFORMED AT:[email or web address] [facility] [id number] [place] [phone] DIRECTOR: PRICILLA DUFFY MD, PHD U. Urealyticum DNA [facility] Urine (Urine, Random) 03/14/2024 2:14 PM EST 03/14/2024 4:15 PM EST Lydia Appram DIAL POLISHER LAB MICROBIOLOGY - GENERAL ORDShima ABRAHAM Final Result [facility] [address] [place] [address] [phone] * (ABNORMAL) POCT urinalysis dipstick manually resulted [...] Urine 03/07/2024 1:16 PM EST Lydia Villagran DIAL POLISHER POINT OF CARE TEST ENTER/EDIT O RDERABLES Final Result * (ABNORMAL) Urinalysis Complete (03/07/2024 12:00 AM EST) Color Urine Yellow [facility] Appearance Urine Clear [facility] PH 5.5 5.0 - 9.0 [facility] Glucose Urine UA Negative Negative mg/dL [facility] Urine Blood Negative Negative [facility] Specific [place] - Urine 1.015 1.005 - 1.025 [facility] Urine Protein Negative Neg-Trace mg/dL [facility] Urine Ketones Negative Negative mg/dL [facility] Nitrite Urine Negative Negative [facility] Leukocyte Esterase Urine Small (1+)(A) Negative [facility] RBC Urine 0-2 0 - 2 /HPF [facility] Urine WBC 6-10(A) 0 - 5 /HPF [facility] Urine Squamous Epithelial Cell 0-2 0 - 2 /HPF [facility] Urine Bacteria 1+ None Seen [facility] Hyaline Casts, Urine 0-2 0 - 2 /LPF [facility] Urine Urine specimen obtained by clean catch procedure / Unknown 03/07/2024 03/07/2024 Lydia Navarrete LAVONNE LAB URINE ORDERABLES Final Resu lt Performing Organization Address [facility] de Phone Number [facility] [address] [place] [phone] * Culture, Urine, Routine (03/07/2024 12:00 AM EST) Only the most recent of2 resultswithin the time period is included. Urine Urine specimen obtained by clean catch procedure / Unknown 03/07/2024 03/07/2024 Comment:CC Narrative [facility] - 03/09/2024 12:40 PM EST Urine Culture Report Result Urine Culture < 10,000 cfu/ml Specimen Source: Urine clean catch Lydia Villagran NP LAB MICROBIOLOGY - GENERAL ORDE RABLES Final Result Performing Organization Address [facility] Phone Number [facility] [address] [place] [phone] * Hepatitis C Antibody with Reflex to HCV, RNA, Quantitative, Real-Time PCR (02/18/2024 11:11 AM EST) Pathologist [facility] Hepatitis C Antibody Nonreactive Nonreactive [facility] Comment:Antibodies to HCV no t detected; does not exclude early acuteHCV infection. Blood Venous blood specimen / Unknown 02/18/2024 11:11 AM EST 02/18/2024 1:18 PM EST Rashel Serrano MD LAB BLOOD ORDERABLES Final Resul t Performing Organization Address [facility] de Phone Number [facility] [address] [place] [phone] * Chlamydia/N. Gonorrhoeae RNA, TMA, Urogenitial (02/18/2024 11:11 AM EST) Pathologist [facility] CT PCR NOT DETECTED Not Detect. [facility] Comment:A not detected test result does [...] psychologicalconsequences. NG PCR NOT DETECTED Not Detect. [facility] Comment:A not detected test result does [...] AM EST 02/18/2024 1:18 PM EST Narrative [facility] - 02/18/2024 3:04 PM EST Urine us Rashel Serrano MD LAB MICROBIOLOGY - GENERAL ORDER CORDELL Final Result [facility] [address] [place] [phone] * Hepatitis B surface antigen, EIA (02/18/2024 11:11 AM EST) Hepatitis B Surface Ag Negative Negative [facility] Blood Venous blood specimen / Unknown 02/18/2024 11:11 AM EST 02/18/2024 1:18 PM EST us Rashel Serrano MD LAB BLOOD ORDERABLES Final Resul t Performing Organization Address City/[facility]/ZIP Co de Phone Number [facility] [address] [place] [phone] [phone] * RPR (Monitor) with Reflex to??Titer (02/18/2024 11:11 AM EST) RPR (Monitor) w/Refl Titer NON-REACTI VE NON-REACT JAYDEN [facility] Comment:THIS TEST WAS PERFOR MED AT:[email or web address] [place] [id number] PANG MD Rapid Plasma Reagin Ab Titer TNP [facility] Blood Venous blood specimen / Unknown 02/18/2024 11:11 AM EST 02/18/2024 1:18 PM EST us Rashel Serrano MD LAB BLOOD ORDERABLES Final Resul t Performing Organization Address [facility]/ZIP Co de Phone Number [facility] [address] [place] [phone] * HIV-1/2 Antigen and Antibodies, Fourth Generation, with Reflexes (02/18/2024 11:11 AM EST) HIV AB/AG Nonreactive Nonreactive [facility] Comment:HIV-1 p24 Ag and/or HIV-1/HIV-2 Ab not detected.A test result that is nonreactive does not exclude thepossibility of exposure to or infection with HIV-1 and/orHIV-2. Nonreactive results in this assay for individualswith prior exposure to HIV-1 and/or HIV-2 may be due toantigen and antibody levels that are below the limit ofdetection of this assay.The IPTEGO HIV Ag/Ab Combo assay result andsupplemental assay results should be interpreted inconjunction with the patient's clinical presentation,history and other laboratory results. If the results areinconsistent with clinical evidence, additional testing issuggested to confirm the result. Blood Venous blood specimen / Unknown 02/18/2024 11:11 AM EST 02/18/2024 1:18 PM EST us Rashel Serrano MD LAB BLOOD ORDERABLES Final Resul t Performing Organization Address [facility] de Phone Number [facility] [address] [place] [phone] * Hepatitis B Surface Antibody, Qualitative (02/18/2024 11:11 AM EST) Pathologist [facility] ~Hepatitis B Surface Antibody NONREACTIVE Nonreactive [facility] Comment:Nonreactive: < 8.00 mIU/mL Blood Venous blood specimen / Unknown 02/18/2024 11:11 AM EST 02/18/2024 1:18 PM EST us Rashel Serrano MD LAB BLOOD ORDERABLES Final Resul t Performing Organization Address [facility] de Phone Number [facility] [address] [place] [phone] * POCT Urine (02/18/2024 11:01 AM EST) [facility] Preg Test, Ur Negative Negative, Indeterminate, None Detected, Invalid, Specimen unsatisfactory for evaluation, Weakly Positive Urine 02/18/2024 11:0 1 AM EST us Rashel Serrano MD POINT OF CARE TEST ENTER/EDIT OR DERABLES Final Result * Bacterial Vaginosis Panel (02/18/2024 10:19 AM EST) [facility] TRICHOMONAS VAGINALIS DETECTION BY PCR NOT DETECTED Not Detect [facility] BACTERIAL VAGINOSIS DETECTION BY PCR NEGATIVE Negative [facility] Comment:The BV organism targ ets of [...] DETECTION BY PCR NOT DETECTED Not Detect [facility] Ivette glab krusei PCR NOT DETECTED Not Detect [facility] Swab Vaginal structure / Unknown 02/18/2024 10:19 AM EST 02/18/2024 5:53 PM EST us Rashel Name LAB MICROBIOLOGY - GENERAL ORDER CORDELL Final Result [facility] [address] [place] [phone] * (ABNORMAL) Pap Smear (12/10/2023 10:46 AM EDT) SOURCE: SEE NOTE [facility] Comment:None given Report Status: TNP [facility] Clinical Information: SEE NOTE [facility] Comment:None given LMP: SEE NOTE [facility] Comment:NONE GIVEN Prev. PAP: SEE NOTE [facility] Comment:NONE GIVEN Prev. BX: SEE NOTE [facility] Comment:NONE GIVEN Statement Of Adequacy: SEE NOTE [facility] Comment:Satisfactory for dulce maria luation.Endocervical/transformation zone componentpresent. General Categorization: SEE NOTE(A) [facility] Comment:Cytology Results: Ep ithelial Cell Abnormality Interpretation/Resul t: SEE NOTE(A) [facility] Comment:Low Grade Squamous I ntraepithelial Lesion (LSIL) Cytology Comment SEE NOTE [facility] Comment:This case could not be evaluated with computerassisted technology. The slide was manuallyscreened according to routine procedures. Public Health Epidemiologist: SEE NOTE [facility] Comment:MRS, CT(ASCP)CT scre ening location: [facility] [address]Ecoxr preparation performed at: [facility], [address] [place] [address] CLIA No. [id number] Review Public Health Epidemiologist: [facility] Pathologist SEE NOTE [facility] Comment:Krishna Ovalle M.D.,Robby contreras Certified in Anatomic Pathology, Clinical Pathology andCytopathology (electronic signature) PAP Infection [facility] See Note SEE NOTE [facility] Comment:EXPLANATORY NOTE:The Pap is a screening test for cervical cancer. It isnot a diagnostic test and is subject to false negativeand false positive results. It is most reliable when asatisfactory sample, regularly obtained, is submittedwith relevant clinical findings and history, and whenthe Pap result is evaluated along with historic andcurrent clinical information.THIS TEST WAS PERFORMED AT:[employer] [address] [id number] PANG MD Pap Vial Vaginal structure / Unknown 12/10/2023 10:46 AM EDT 12/10/2023 5:31 PM EDT Narrative [facility] - 12/21/2023 10:34 AM EDT SEE SCANNED RESULTS IN EMRVAGINA Paola Juares CNM LAB PATHOLOGY ORDERABLES Final Result [facility] [address] [place] [phone] [phone] from Last 3 Months or Most Recently Relevant to Health Maintenance Insurance [facility] C3 HSN PARTIAL Care Teams Regional Liaison Relationship Specialty Start Date End Date Gemini Hennessy MD [address] [place] [phone] PCP - General Internal Medicine 11/01/22
--- OUTSIDE RECORDS SUMMARY | 2024-03-26 12:14 | XMS_ITS | Encounter Summary ---
Author Organization [employer] Address [address] [facility] 7t [place] [address] Care Team Providers Care Cargo Router Name Role Phone Gemini Hennessy MD Primary [...] 10:00 AM EST Office Visit [facility] [address] [place] [phone] Gemini Hennessy MD [address] [place] [address] documented as of this encounter Visit Diagnoses Not on filedocumented in this encounter Additional Health Concerns Assessment Noted Time PHQ-9 Depression Total Score: 0 09/12/19 24 2:11 PM EDT documented as of this encounter Care Teams Cargo Router Relationship Specialty Start Date End Date Gemini Hennessy MD [address] [place] [phone] PCP - General Internal Medicine 11/01/22 documented as of this encounter
--- OUTSIDE RECORDS SUMMARY | 2024-03-26 12:14 | XMS_ITS | Encounter Summary ---
Author Organization [employer] Address [address] [facility] 7t [place] [address] Care Team Providers Care Deckhand Sponge Boat Name Role Phone Gemini Hennessy MD Primary Care Provide r Reason for Visit * Reason Onset Date Comments NTTS f/u 03/06/2024 Encounter Details Date Type Department Care Team (Late st Contact Info) Description 03/06/2024 Telephone [facility] [address] [place], [place] [phone] Guerita Peña, CHRISTY [address] [place] [address] NTTS f/u Social History Tobacco Use Types [...] AM. Per chart review, patient spoke to workforce development specialist's today and was advised to seek WIC for re-evaluation.No further f/u needed. documented in this encounter Plan of Treatment Upcoming Encounters Date Type Department Care Team (Late st Contact Info) Description 04/17/2024 10:00 AM EST Office Visit [facility] [address] [place] [phone] Gemini Hennessy MD [address] [place] [address] documented as of this encounter Visit Diagnoses Not on filedocumented in this encounter Additional Health Concerns Assessment Noted Time PHQ-9 Depression Total Score: 0 09/12/19 24 2:11 PM EDT documented as of this encounter Care Teams Deckhand Sponge Boat Relationship Specialty Start Date End Date Gemini Hennessy MD [address] [place] [address] PCP - General Internal Medicine 11/01/22 documented as of this encounter
--- OUTSIDE RECORDS SUMMARY | 2024-03-26 12:14 | XMS_ITS | Encounter Summary ---
Author Organization [employer] Address [address] [facility] 7t [place] [address] Care Team Providers Care Lead Presser Name Role Phone Gemini Hennessy MD Primary Care Provide r Reason for Visit * Reason Comments Med Refill Encounter Details Date Type Department Care Team ([facility] st Contact Info) Description 03/03/2024 Refill [facility] [address] [place] [address] [phone] Name, MD Rashel [address] [place] [address] Social History Tobacco Use Types Packs/Day Years [...] Description 04/17/2024 10:00 AM EST Office Visit [facility] [address] [place] [address] Gemini Hennessy MD [address] [place] [address] documented as of this encounter Visit Diagnoses Not on filedocumented in this encounter Additional Health Concerns Assessment Noted Time PHQ-9 Depression Total Score: 0 09/12/19 24 2:11 PM EDT documented as of this encounter Care Teams Lead Presser Relationship Specialty Start Date End Date Gemini Hennessy MD [address] [place] [address] PCP - General Internal Medicine 11/01/22 documented as of this encounter
--- OUTSIDE RECORDS SUMMARY | 2024-03-26 12:14 | XMS_ITS | Encounter Summary ---
Author Organization [employer] Address [address] [facility] 7t [place] [address] Care Team Providers Care Acquisition Analyst Name Role Phone Gemini Hennessy MD Primary Care Provide r Reason for Visit * Reason Onset Date Comments Results 10/01/2023 Encounter Details Date Type Department Care Team ([facility] st Contact Info) Description 10/01/2023 Telephone [facility] [address] [place] [address] Gemini Hennessy MD [address] [place] [address] Results Social History Tobacco Use Types Packs/Day [...] the past 12 months, has t he [employer], gas, oil or water [employer] threatened to shut off services in your [...] 04/17/2024 10:00 AM EST Office Visit [facility] [address] [place] [address] Gemini Hennessy MD [address] [place] [address] documented as of this encounter Visit Diagnoses Not on filedocumented in this encounter Additional Health Concerns Assessment Noted Time PHQ-9 Depression Total Score: 0 09/12/19 24 2:11 PM EDT documented as of this encounter Care Teams Acquisition Analyst Relationship Specialty Start Date End Date Gemini Hennessy MD [address] [place] [phone] PCP - General Internal Medicine 11/01/22 documented as of this encounter
--- OUTSIDE RECORDS SUMMARY | 2024-03-26 12:14 | XMS_ITS | Encounter Summary ---
Author Organization [employer] Address [address] [facility] 7t [place] [address] Care Team Providers Care Leader Writer Name Role Phone Gemini Hennessy MD Primary Care Provide r Reason for Visit * Reason Onset Date Comments Lab Orders 03/19/2024 Encounter Details Date Type Department Care Team ([facility] st Contact Info) Description 03/19/2024 Telephone [facility] [address] [place], [place] [phone] Sofía López RN [address] [place] [address] Lab Orders Social History Tobacco Use Types [...] encounter Miscellaneous Notes * Telephone Encounter - Sofía López RN - 03/19/2024 12:15 PM EST Received call from [facility] reporting the mycoplasma/ureaplasma panel could not be performed due to a lab error. The urine specimen received was in a cup and was supposed to be transferred into a yellow aptima urine tube and the lab did not follow this process. The lab will contact the patient for recollect. Message sent to ordering provider SHASHI Toro. documented in this encounter Plan of Treatment Upcoming Encounters Date Type Department Care Team (Late st Contact Info) Description 04/17/2024 10:00 AM EST Office Visit [facility] [address] [place] [address] Gemini Hennessy MD [address] [place], [place] [phone] documented as of this encounter Visit Diagnoses Not on filedocumented in this encounter Additional Health Concerns Assessment Noted Time PHQ-9 Depression Total Score: 0 09/12/19 24 2:11 PM EDT documented as of this encounter Care Teams Leader Writer Relationship Specialty Start Date End Date Gemini Hennessy MD [address] [place] [address] PCP - General Internal Medicine 11/01/22 documented as of this encounter
--- OUTSIDE RECORDS SUMMARY | 2024-03-26 12:14 | XMS_ITS | Encounter Summary ---
Author Organization [employer] Address [address] [facility] 7t [place] [address] Care Team Providers Care Agronomy Teacher Name Role Phone Gemini Hennessy MD Primary Care Provide r Encounter Details Date Type Department Care Team ([facility] st Contact Info) Description 03/14/2024 Orders Only [facility] [address] [place], [place] [phone] Lydia Villagran NP [address] [place] [address] Social History Tobacco Use Types Packs/Day Years [...] Description 04/17/2024 10:00 AM EST Office Visit [facility] [address] [place] [address] Gemini Hennessy MD [address] [place] [address] documented as of this encounter Procedures Procedure Name Priority Date/Time Associated Diagnosis Comments CANCELLED SEROLOGY Routine 03/14/2024 2: 14 PM EST documented in this encounter Results * Cancelled Serology (03/14/2024 2:14 PM EST) Cancelled Serology SEE [facility] Comment:THE FOLLOWING TESTS WERE CANCELLED: MYCO UREAPL PNLREASON: NO SUITABLE SPECIMEN RECEUVED BY REFERENCE LAB 03/14/2024 2:14 PM EST 03/14/2024 4:15 PM EST us Lydia Appram FILM ARCHIVIST HISTORICAL/NON ORDERABLE LABS F inal Result [facility] [address] [place] [address] [phone] documented in this encounter Visit Diagnoses Not on filedocumented in this encounter Additional Health Concerns Assessment Noted Time PHQ-9 Depression Total Score: 0 09/12/19 24 2:11 PM EDT documented as of this encounter Care Teams Agronomy Teacher Relationship Specialty Start Date End Date Gemini Hennessy MD [address] [place] [phone] PCP - General Internal Medicine 11/01/22 documented as of this encounter
--- OUTSIDE RECORDS SUMMARY | 2024-03-26 12:14 | XMS_ITS | Encounter Summary ---
Author Organization [email or web address] Address [address] [place] [address] 7t [place] [address] Care Team Providers Care Legal Transcriptionist Name Role Phone Gemini Hennessy MD Primary Care Provide r Reason for Visit * Reason Onset Date Comments Nurse Triage 03/06/2024 Encounter Details Date Type Department Care Team ([facility] st Contact Info) Description 03/06/2024 Telephone [facility] [address] [place] [address] Gemini Hennessy MD 230 [place] [address] Nurse Triage Social History Tobacco Use Types [...] the past 12 months, has t he [employer], gas, oil or water company threatened to [...] outcome. Pt was seen and treated at [facility] on 02/17/25. Pt stated still experiencing symptoms after completing medication Contact pt at [phone] documented in this encounter Plan of Treatment Upcoming Encounters Date Type Department Care Team (Late st Contact Info) Description 04/17/2024 10:00 AM EST Office Visit [facility] [address] [place] [phone] Gemini Hennessy MD [address] [place] [phone] documented as of this encounter Visit Diagnoses Not on filedocumented in this encounter Additional Health Concerns Assessment Noted Time PHQ-9 Depression Total Score: 0 09/12/19 24 2:11 PM EDT documented as of this encounter Care Teams Legal Transcriptionist Relationship Specialty Start Date End Date Gemini Hennessy MD [address] [place] [phone] PCP - General Internal Medicine 11/01/22 documented as of this encounter
--- OUTSIDE RECORDS SUMMARY | 2024-03-26 12:14 | XMS_ITS | Encounter Summary ---
Author Organization [employer] Address [address] 7t [place] [address] Care Team Providers Care Print Journalist Name Role Phone Gemini Hennessy MD Primary Care Provide r Reason for Visit * Reason Comments UTI Encounter Details Date Type Department Care Team ([facility] st Contact Info) Description 03/07/2024 2:00 PM EST Office Visit [facility] [address] [place] [address] Dysuria (Primary Dx); UTI symptoms Social History [...] Description 04/17/2024 10:00 AM EST Office Visit [facility] [address] [place], [place] [phone] Gemini Hennessy MD 230 [place] [address] Scheduled Orders Name Type Priority Associated Diagnoses [...] Urine 03/07/2024 1:16 PM EST Lydia Villagran SIGNS SALES REPRESENTATIVE POINT OF CARE TEST ENTER/EDIT O RDERABLES Final Result * (ABNORMAL) Urinalysis Complete (03/07/2024 12:00 AM EST) Color Urine Yellow [facility] Appearance Urine Clear [facility] PH 5.5 5.0 - 9.0 [facility] Glucose Urine UA Negative Negative mg/dL [facility] Urine Blood Negative Negative [facility] Specific [place] - Urine 1.015 1.005 - 1.025 [facility] Urine Protein Negative Neg-Trace mg/dL [facility] Urine Ketones Negative Negative mg/dL [facility] Nitrite Urine Negative Negative [facility] Leukocyte Esterase Urine Small (1+)(A) Negative [facility] RBC Urine 0-2 0 - 2 /HPF [facility] Urine WBC 6-10(A) 0 - 5 /HPF [facility] Urine Squamous Epithelial Cell 0-2 0 - 2 /HPF [facility] Urine Bacteria 1+ None Seen [facility] Hyaline Casts, Urine 0-2 0 - 2 /LPF [facility] Urine Urine specimen obtained by clean catch procedure / Unknown 03/07/2024 03/07/2024 [facility] SIGNS SALES REPRESENTATIVE LAB URINE ORDERABLES Final Resu lt Performing Organization Address City/[facility] [address]/ZIP Co de Phone Number [facility] [address] [place] [address] [phone] * Culture, Urine, Routine (03/07/2024 12:00 AM EST) Urine Urine specimen obtained by clean catch procedure / Unknown 03/07/2024 03/07/2024 Comment:UACC Narrative [facility] - 03/09/2024 12:40 PM EST Urine Culture Report Result Urine Culture < 10,000 cfu/ml Specimen Source: Urine clean catch Lydia Rosalba SIGNS SALES REPRESENTATIVE LAB MICROBIOLOGY - GENERAL ORDE RABLES Final Result Performing Organization Address [facility] [address]/[facility] Co de Phone Number [facility] [address] [place] [phone] documented in this encounter Visit Diagnoses Diagnosis Dysuria- Primary UTI symptoms documented in this encounter Additional Health Concerns Assessment Noted Time PHQ-9 Depression Total Score: 0 09/12/19 24 2:11 PM EDT documented as of this encounter Care Teams Print Journalist Relationship Specialty Start Date End Date Gemini Hennessy MD [address] [place] [phone] PCP - General Internal Medicine 11/01/22 documented as of this encounter
== END 2024-03-26 10:56 | disposition home or self-care (01) ==
LOC: HO.HHCL 10:55
PROVIDERS: Visit Provider Nurse Practitioner
DX: R30.0 Dysuria (principal)
CPT/HCPCS: 87086

== ENCOUNTER 2024-03-28 09:48 | Outpatient (REF) | payer OTHER, MEDICAID, SELFPAY ==
--- OUTSIDE RECORDS SUMMARY | 2024-03-28 10:34 | XMS_ITS | Encounter Summary ---
Author Organization [employer] Address [address] [facility] 7t [place] [address] Care Team Providers Care Lens Examiner Name Role Phone Gemini Hennessy MD Primary Care Provide r Reason for Visit * Reason Onset Date Comments NTTS f/u 03/06/2024 Encounter Details Date Type Department Care Team (Late st Contact Info) Description 03/06/2024 Telephone [facility] 230 [place], [place] [phone] Guerita Peña, CHRISTY [address] [place] [address] NTTS f/u Social History Tobacco Use Types [...] AM. Per chart review, patient spoke to recycling coordinator's today and was advised to seek WIC for re-evaluation.No further f/u needed. documented in this encounter Plan of Treatment Upcoming Encounters Date Type Department Care Team (Late st Contact Info) Description 04/17/2024 10:00 AM EST Office Visit [facility] [address] [place] [phone] Gemini Hennessy MD [address] [place] [address] documented as of this encounter Visit Diagnoses Not on filedocumented in this encounter Additional Health Concerns Assessment Noted Time PHQ-9 Depression Total Score: 0 09/12/19 24 2:11 PM EDT documented as of this encounter Care Teams Lens Examiner Relationship Specialty Start Date End Date Gemini Hennessy MD [address] [place] [address] PCP - General Internal Medicine 11/01/22 documented as of this encounter
--- OUTSIDE RECORDS SUMMARY | 2024-03-28 10:34 | XMS_ITS | Encounter Summary ---
Author Organization [employer] Address [address] 7t [place] [address] Care Team Providers Care Printing Mechanist Name Role Phone Gemini Hennessy MD Primary Care Provide r Reason for Visit * Reason Comments UTI Encounter Details Date Type Department Care Team ([facility] st Contact Info) Description 03/07/2024 2:00 PM EST Office Visit [facility] [address] [place] [address] Dysuria (Primary Dx); UTI symptoms Social History [...] Description 04/17/2024 10:00 AM EST Office Visit [facility] [address] [place], [place] [phone] Gemini Hennessy MD 230 [place] [address] Scheduled Orders Name Type Priority Associated Diagnoses [...] Urine 03/07/2024 1:16 PM EST Lydia Villagran MEDICAL COMMUNICATION SPECIALIST POINT OF CARE TEST ENTER/EDIT O RDERABLES Final Result * (ABNORMAL) Urinalysis Complete (03/07/2024 12:00 AM EST) Color Urine Yellow [facility] Appearance Urine Clear [facility] PH 5.5 5.0 - 9.0 [facility] Glucose Urine UA Negative Negative mg/dL [facility] Urine Blood Negative Negative [facility] Specific [place] - Urine 1.015 1.005 - 1.025 [facility] Urine Protein Negative Neg-Trace mg/dL [facility] Urine Ketones Negative Negative mg/dL [facility] Nitrite Urine Negative Negative [facility] Leukocyte Esterase Urine Small (1+)(A) Negative [facility] RBC Urine 0-2 0 - 2 /HPF [facility] Urine WBC 6-10(A) 0 - 5 /HPF [facility] Urine Squamous Epithelial Cell 0-2 0 - 2 /HPF [facility] Urine Bacteria 1+ None Seen [facility] Hyaline Casts, Urine 0-2 0 - 2 /LPF [facility] Urine Urine specimen obtained by clean catch procedure / Unknown 03/07/2024 03/07/2024 [facility] MEDICAL COMMUNICATION SPECIALIST LAB URINE ORDERABLES Final Resu lt Performing Organization Address City/[facility]/ZIP Co de Phone Number [facility] [address] [place] [address] [phone] * Culture, Urine, Routine (03/07/2024 12:00 AM EST) Urine Urine specimen obtained by clean catch procedure / Unknown 03/07/2024 03/07/2024 Comment:UACC Narrative [facility] - 03/09/2024 12:40 PM EST Urine Culture Report Result Urine Culture < 10,000 cfu/ml Specimen Source: Urine clean catch Lydia Rosalba MEDICAL COMMUNICATION SPECIALIST LAB MICROBIOLOGY - GENERAL ORDE RABLES Final Result Performing Organization Address [facility] Co de Phone Number [facility] [address] [place] [phone] documented in this encounter Visit Diagnoses Diagnosis Dysuria- Primary UTI symptoms documented in this encounter Additional Health Concerns Assessment Noted Time PHQ-9 Depression Total Score: 0 09/12/19 24 2:11 PM EDT documented as of this encounter Care Teams Printing Mechanist Relationship Specialty Start Date End Date Gemini Hennessy MD [address] [place] [phone] PCP - General Internal Medicine 11/01/22 documented as of this encounter
--- OUTSIDE RECORDS SUMMARY | 2024-03-28 10:34 | XMS_ITS | Encounter Summary ---
Author Organization [employer] Address [address] [place] [address] 7t [place] [address] Care Team Providers Care Artifacts Conservator Name Role Phone Gemini Hennessy MD Primary Care Provide r Reason for Visit * Reason Onset Date Comments Nurse Triage 03/06/2024 Encounter Details Date Type Department Care Team ([facility] st Contact Info) Description 03/06/2024 Telephone [facility] 230 [place] [address] Gemini Hennessy MD [address] [place] [address] Nurse Triage Social History Tobacco Use Types [...] the past 12 months, has t he [employer], gas, oil or water company threatened to [...] outcome. Pt was seen and treated at [facility] on 02/17/25. Pt stated still experiencing symptoms after completing medication Contact pt at [phone] documented in this encounter Plan of Treatment Upcoming Encounters Date Type Department Care Team (Late st Contact Info) Description 04/17/2024 10:00 AM EST Office Visit [facility] [address] [place] [phone] Gemini Hennessy MD [address] [place] [address] documented as of this encounter Visit Diagnoses Not on filedocumented in this encounter Additional Health Concerns Assessment Noted Time PHQ-9 Depression Total Score: 0 09/12/19 24 2:11 PM EDT documented as of this encounter Care Teams Artifacts Conservator Relationship Specialty Start Date End Date Gemini Hennessy MD [address] [place] [phone] PCP - General Internal Medicine 11/01/22 documented as of this encounter
--- OUTSIDE RECORDS SUMMARY | 2024-03-28 10:34 | XMS_ITS | Encounter Summary ---
Author Organization [employer] Address [address] [facility] 7t [place] [address] Care Team Providers Care Structural Engineering Project Manager Name Role Phone Gemini Hennessy MD Primary Care Provide r Reason for Visit * Reason Comments Med Refill Encounter Details Date Type Department Care Team ([facility] st Contact Info) Description 03/03/2024 Refill [facility] [address] [place] [address] [phone] Name, MD Rashel [address] [place] [address] Social History Tobacco Use Types Packs/Day Years [...] Description 04/17/2024 10:00 AM EST Office Visit [facility] 230 [place] [address] Gemini Hennessy MD [address] [place] [address] documented as of this encounter Visit Diagnoses Not on filedocumented in this encounter Additional Health Concerns Assessment Noted Time PHQ-9 Depression Total Score: 0 09/12/19 24 2:11 PM EDT documented as of this encounter Care Teams Structural Engineering Project Manager Relationship Specialty Start Date End Date Gemini Hennessy MD [address] [place] [address] PCP - General Internal Medicine 11/01/22 documented as of this encounter
--- OUTSIDE RECORDS SUMMARY | 2024-03-28 10:35 | XMS_ITS | Encounter Summary ---
Author Organization [employer] Address [address] [facility] 7t [place] [address] Care Team Providers Care Curve Cleaner Name Role Phone Gemini Hennessy MD Primary Care Provide r Reason for Visit * Reason Onset Date Comments Results 10/01/2023 Encounter Details Date Type Department Care Team ([facility] st Contact Info) Description 10/01/2023 Telephone [facility] [address] [place] [address] Gemini Hennessy MD [address] [place] [address] Results Social History Tobacco Use Types Packs/Day [...] the past 12 months, has t he [employer], gas, oil or water [employer] threatened to shut off services in your [...] Description 04/17/2024 10:00 AM EST Office Visit [facility] [address] [place] [address] Gemini Hennessy MD [address] [place] [address] documented as of this encounter Visit Diagnoses Not on filedocumented in this encounter Additional Health Concerns Assessment Noted Time PHQ-9 Depression Total Score: 0 09/12/19 24 2:11 PM EDT documented as of this encounter Care Teams Curve Cleaner Relationship Specialty Start Date End Date Gemini Hennessy MD [address] [place] [phone] PCP - General Internal Medicine 11/01/22 documented as of this encounter
--- OUTSIDE RECORDS SUMMARY | 2024-03-28 10:35 | XMS_ITS | Encounter Summary ---
Author Organization [employer] Address [address] [facility] [address] [facility] [address] [facility] [address] 7t [place] [address] Care Team Providers Care Weld Lay Out Worker Name Role Phone Gemini Hennessy MD Primary Care Provide r Encounter Details Date Type Department Care Team ([facility] st Contact Info) Description 03/13/2024 Orders Only [facility] 230 [place], [place] [phone] Lydia Villagran NP 230 [place] [address] Dysuria (Primary Dx) Social History Tobacco Use [...] Description 04/17/2024 10:00 AM EST Office Visit [facility] [address] [place] [address] Gemini Hennessy MD 230 [place] [address] documented as of this encounter Procedures Procedure Name Priority Date/Time Associated Diagnosis Comments MYCOPLASMA/UREAPLAS MA PANEL Routine 03/14/2024 2:14 PM EST Dysuria documented in this encounter Results * Mycoplasma/Ureaplasma??Panel (03/14/2024 2:14 PM EST) Tree(R), Mycoplasma Hominis, Real-Time Pcr [facility] Comment:TNPTEST NOT PERFORME DNo suitable specimen received.Please review the testrequirements [email or web address] TEST PERFORMED AT:[employer]/[facility] [place] [phone] DIRECTOR: PRICILLA DUFFY MD, PHD Mycoplasma Genitalium, rRNA,TMA [facility] U. Parvum DNA [facility] Comment:TNPTEST NOT PERFORME DNo suitable specimen received.Please review the testrequirements [email or web address] TEST PERFORMED AT:[employer]/[facility] [place], [place] [phone] DIRECTOR: PRICILLA DUFFY MD, PHD U. Urealyticum DNA [facility] Urine (Urine, Random) 03/14/2024 2:14 PM EST 03/14/2024 4:15 PM EST Lydia Navarrete LIGHT RAIL SIGNAL TECHNICIAN LAB MICROBIOLOGY - [facility] KRISTINA ABRAHAM Final Result [facility] [address] [place] [phone] documented in this encounter Visit Diagnoses Diagnosis Dysuria- Primary documented in this encounter Additional Health Concerns Assessment Noted Time PHQ-9 Depression Total Score: 0 09/12/19 24 2:11 PM EDT documented as of this encounter Care Teams Weld Lay Out Worker Relationship Specialty Start Date End Date Gemini Hennessy MD [address] [place] [phone] PCP - General Internal Medicine 11/01/22 documented as of this encounter
--- OUTSIDE RECORDS SUMMARY | 2024-03-28 10:35 | XMS_ITS | Encounter Summary ---
Author Organization [employer] Address [address] [facility] 7t [place] [address] Care Team Providers Care Orthopedic Nurse Name Role Phone Gemini Hennessy MD Primary Care Provide r Encounter Details Date Type Department Care Team ([facility] st Contact Info) Description 03/14/2024 Orders Only [facility] [address] [place], [place] [phone] Lydia Villagran NP [address] [place] [address] Social History Tobacco Use Types Packs/Day Years [...] 04/17/2024 10:00 AM EST Office Visit [facility] [address] [place] [address] Gemini Hennessy MD 230 [place] [address] documented as of this encounter Procedures Procedure Name Priority Date/Time Associated Diagnosis Comments CANCELLED SEROLOGY Routine 03/14/2024 2: 14 PM EST documented in this encounter Results * Cancelled Serology (03/14/2024 2:14 PM EST) Cancelled Serology [facility] Comment:THE FOLLOWING TESTS WERE CANCELLED: MYCO UREAPL PNLREASON: NO SUITABLE SPECIMEN RECEUVED BY REFERENCE LAB 03/14/2024 2:14 PM EST 03/14/2024 4:15 PM EST us Lydia Appram ANIMAL PATHOLOGIST HISTORICAL/NON ORDERABLE LABS F inal Result [facility] [address] [place] [address] [phone] documented in this encounter Visit Diagnoses Not on filedocumented in this encounter Additional Health Concerns Assessment Noted Time PHQ-9 Depression Total Score: 0 09/12/19 24 2:11 PM EDT documented as of this encounter Care Teams Orthopedic Nurse Relationship Specialty Start Date End Date Gemini Hennessy MD [address] [place] [phone] PCP - General Internal Medicine 11/01/22 documented as of this encounter
--- OUTSIDE RECORDS SUMMARY | 2024-03-28 10:35 | XMS_ITS | Encounter Summary ---
Author Organization [employer] Address [address] [facility] 7t [place] [address] Care Team Providers Care Business Project Analyst Name Role Phone Gemini Hennessy MD Primary Care Provide r Reason for Visit * Reason Onset Date Comments Lab Orders 03/11/2024 Encounter Details Date Type Department Care Team ([facility] st Contact Info) Description 03/11/2024 Telephone [facility] 230 [place], [place] [phone] Sofía López RN [address] [place] [address] Lab Orders Social History Tobacco Use Types [...] Does Patient need a recollection? Follow up [facility] Patient as appropriate. * Telephone Encounter - Sofía López RN - 03/11/2024 8:13 AM EST Received message from [facility] reporting they received an order for [...] specimen. Message sent to SHASHI Brown and [facility] [employer]. documented in this encounter Plan of Treatment Upcoming Encounters Date Type Department Care Team (Late st Contact Info) Description 04/17/2024 10:00 AM EST Office Visit [facility] MEDICINE [address] [place] [phone] Gemini Hennessy MD [address] [place] [phone] documented as of this encounter Visit Diagnoses Not on filedocumented in this encounter Additional Health Concerns Assessment Noted Time PHQ-9 Depression Total Score: 0 09/12/19 24 2:11 PM EDT documented as of this encounter Care Teams Business Project Analyst Relationship Specialty Start Date End Date Gemini Hennessy MD [address] [place] [phone] PCP - General Internal Medicine 11/01/22 documented as of this encounter
--- OUTSIDE RECORDS SUMMARY | 2024-03-28 10:35 | XMS_ITS | Encounter Summary ---
Author Organization [email or web address] Address [address] [facility] 7t [place] [address] Care Team Providers Care Disease Control Inspector Name Role Phone Gemini Hennessy MD Primary Care Provide r Reason for Visit * Reason Comments TRANSFER PATIENT Encounter Details Date Type Department Care Team (Late st Contact Info) Description 09/12/2023 2:15 PM EDT Office Visit [facility] [address] [place] [address] Gemini Hennessy MD [address] [place] [address] Mild intermittent asthma without complication (Primary Dx); [...] mouth Once per day. 30 tablet 2 Avz-Ro-Vljwqz 0.18/0.215/0.25 MG-25 MCG tablet TAKE 1 TABLET [...] Description 04/17/2024 10:00 AM EST Office Visit [facility] [address] [place], [place] [phone] Gemini Hennessy MD [address] [place], [place] [phone] documented as of this encounter Procedures Procedure [...] Load <15 NOT DETECTED NOT DETECTED IU/mL [facility] HCV Log PCR <1.18 NOT DETECTED NOT DETECTED Log IU/mL [facility] Comment:For additional infor aidee, please refer [email or web address].Kapitall/faq/SZF51w3(This link is being provided for informational/educational purposes only.)THIS TEST WAS PERFORMED AT:[facility] [place] [id number] PANG MD Blood 09/12/2023 3:23 PM EDT 09/12/2023 4:10 PM EDT us Gemini Hartman MD LAB BLOOD ORDERABLES Final Result [facility] [address] [place] [phone] * HIV-1/2 Antigen and Antibodies, Fourth Generation, with Reflexes (09/12/2023 3:23 PM EDT) HIV AB/AG Nonreactive Nonreactive [facility] Comment:HIV-1 p24 Ag and/or HIV-1/HIV-2 Ab not detected.A test result that is nonreactive does not exclude thepossibility of exposure to or infection with HIV-1 and/orHIV-2. Nonreactive results in this assay for individualswith prior exposure to HIV-1 and/or HIV-2 may be due toantigen and antibody levels that are below the limit ofdetection of this assay.The [employer] HIV Ag/Ab Combo assay result andsupplemental assay results should be interpreted inconjunction with the patient's clinical presentation,history and other laboratory results. If the results areinconsistent with clinical evidence, additional testing issuggested to confirm the result. Blood Venous blood specimen / Unknown 09/12/2023 3:23 PM EDT 09/12/2023 4:10 PM EDT us Gemini Hartman MD LAB BLOOD ORDERABLES Final Result [facility] [address] [place] [phone] * Lipid Panel with Reflex to Direct LDL (09/12/2023 3:23 PM EDT) Triglycerides 118 <150 mg/dL [facility] Comment:Desirable Triglyceri de: less than 150 mg/dLBorderline High Triglyceride 150-199 mg/dLHigh Triglyceride: 200-499 mg/dLVery High Triglyceride: greater than or equal to 5OO mg/dL Cholesterol 170 <200 mg/dL [facility] Comment:Desirable Cholestero l: less than 200 mg/dLBorderline High Cholesterol: 200-239 mg/dLHigh Cholesterol: greater than 239 mg/dL LDL Cholesterol Calculated 84 <100 mg/dL [facility] Comment:Desirable LDL: less than 100 mg/dLNear Optimal/Above Optimal LDL: 110- 129 mg/dLBorderline High LDL: 130-159 mg/dLHigh LDL: 160-189 mg/dLVery High LDL: greater than or equal to 190 mg/dL HDL Cholesterol 63 >40 mg/dL [facility] Comment:Desirable HDL: great er than 40 mg/dL Note: This HDL assay may give artificially low results in patients with liver disease. Blood 09/12/2023 3:23 PM EDT 09/12/2023 4:10 PM EDT us Gemini Hartman MD LAB BLOOD ORDERABLES Final Result [facility] [address], [place] [phone] * (ABNORMAL) CBC auto differential (09/12/2023 3:23 PM EDT) White Blood Count 6.9 4.8 - 10.8 X10*3/uL [facility] Red Blood Count 4.49 4.20 - 5.50 X10*6/uL [facility] Hemoglobin 13.1 12.0 - 16.0 g/dl [facility] Hematocrit 39.9 37.0 - 47.0 % [facility] Mean Corpuscular Volume 88.9 80.0 - 98.0 fL [facility] Mean Corpuscular Hemoglobin 29.2 27.0 - 33.0 pg [facility] Mean Corpuscular HGB Conc 32.8 31.0 - 35.0 g/dl [facility] Red Cell Distribution Width 13.1 11.0 - 16.0 % [facility] Platelet Count 349 160 - 400 X10*3/uL [facility] Mean Platelet Volume 9.8 9.4 - 12.3 fL [facility] Neutrophils Percent Auto 55.7 45 - 73 % [facility] Imm Gran Pct Auto 0.4 0.0 - 0.4 % [facility] Lymphocytes Percent Auto 28.8 20 - 40 % [facility] Monocytes Percent Auto 11.8(H) 2 - 11 % [facility] Eosinophils Percent Auto 2.7 0 - 4 % [facility] Basophils Percent Auto 0.6 0 - 2 % [facility] NRBC Pct Auto 0.0 0.0 - 0.2 /100WBC [facility] Neutrophils Absolute Auto 3.9 2.0 - 8.3 x10*3/uL [facility] Imm Gran Abs Auto 0.03 0.00 - 0.03 X10*3/uL [facility] Lymphocytes Absolute Auto 2.0 1.2 - 4.9 X10*3/uL [facility] Monocytes Absolute Auto 0.8 0.1 - 1.2 X10*3/uL [facility] Eosinophils Absolute Auto 0.2 0.0 - 0.4 X10*3/uL [facility] Basophils Absolute Auto 0.0 0.0 - 0.2 X10*3/uL [facility] NRBC Abs Auto 0.000 0.0 - 0.012 X10*3/uL [facility] Blood Venous blood specimen / Unknown 09/12/2023 3:23 PM EDT 09/12/2023 4:10 PM EDT us Gemini Hartman MD LAB BLOOD ORDERABLES Final Result [facility] [address], [place] [phone] * (ABNORMAL) Comprehensive Metabolic Panel (09/12/2023 3:23 PM EDT) Sodium 141 135 - 145 mmol/L [facility] Potassium 3.9 3.3 - 5.1 mmol/L [facility] Chloride 104 96 - 108 mmol/L [facility] Carbon Dioxide 25 22 - 29 mmol/L [facility] Anion Gap 16 12 - 20 [facility] Urea Nitrogen (BUN) 7(L) 9 - 16 mg/dL [facility] Creatinine, Serum 0.83 0.5 - 1.4 mg/dL [facility] Estimated Glomerular Filt Rate >60 [facility] Comment:NOTE: For -Am erican individuals, multiply the result by 1.210.Chronic Kidney Disease: Estimated GFR < 60 mL/min/1.61g3Zcmcdv Kidney Disease: Estimated GFR < 15 mL/min/1.73m2 Glucose 77 60 - 115 mg/dL [facility] Calcium 9.8 8.4 - 10.2 mg/dL [facility] Bilirubin, Total 0.3 0.0 - 1.0 mg/dL [facility] Aspartate Amino Transferase 11 5 - 31 U/L [facility] Alanine Aminotransferase 9 0 - 31 U/L [facility] Total Protein 8.2(H) 6.5 - 8.0 g/dL [facility] Albumin Level 4.6 3.5 - 5.0 g/dL [facility] Alkaline Phosphatase 66 39 - 117 U/L [facility] Blood Venous blood specimen / Unknown 09/12/2023 3:23 PM EDT 09/12/2023 4:10 PM EDT Gemini Hartman MD LAB BLOOD ORDERABLES Final Result [facility] [address] [place] [phone] * Hemoglobin A1c (09/12/2023 3:23 PM EDT) Hemoglobin A1c 4.8 <6.0 % [facility] Comment:Hemoglobin A1C Refer ence Range Adults: 4.8 - 6.0 % Non diabetic: < 6.0 % Goal: < 7.0 %Additional Action Suggested: > 8.0 %Note: Hemoglobin A1c results are invalid for patients with abnormal amounts of HbF. Blood transfusions may impact the HbA1c concentration in the patient sample. Estimated Average Glucose 91 mg/dL [facility] Comment:eAG = Estimated ave rage glucose which is %A1C expressed asaverage glucose, using the formula of the B3V-TuytfhoNwfjnac Glucose study (ADAG), Diabetes Care, Vol.31,#8,2007 Blood Venous blood specimen / Unknown 09/12/2023 3:23 PM EDT 09/12/2023 4:10 PM EDT us Gemini Hartman MD LAB BLOOD ORDERABLES Final Result [facility] [address] [place] [phone] documented in this encounter Visit Diagnoses Diagnosis Mild intermittent asthma without complication- Primary Health care maintenance documented in this encounter Additional Health Concerns Assessment Noted Time PHQ-9 Depression Total Score: 0 09/12/19 2:11 PM EDT documented as of this encounter Care Teams Disease Control Inspector Relationship Specialty Start Date End Date Gemini Hennessy MD [address] [place] [phone] PCP - General Internal Medicine 11/01/22 documented as of this encounter
--- OUTSIDE RECORDS SUMMARY | 2024-03-28 10:35 | XMS_ITS | Encounter Summary ---
Author Organization [employer] Address [address] [facility] 7t [place] [address] Care Team Providers Care Welder Assistant Name Role Phone Gemini Hennessy MD Primary [...] Description 04/17/2024 10:00 AM EST Office Visit [facility] [address] [place] [phone] Gemini Hennessy MD [address] [place] [phone] documented as of this encounter Visit Diagnoses Not on filedocumented in this encounter Additional Health Concerns Assessment Noted Time PHQ-9 Depression Total Score: 0 09/12/19 24 2:11 PM EDT documented as of this encounter Care Teams Welder Assistant Relationship Specialty Start Date End Date Gemini Hennessy MD [address] [place] [phone] PCP - General Internal Medicine 11/01/22 documented as of this encounter
--- OUTSIDE RECORDS SUMMARY | 2024-03-28 10:35 | XMS_ITS | Encounter Summary ---
Author Organization [employer] Address [address] [facility] [address] [place] [address] Care Team Providers Care Production Drilling Machine Operator Name Role Phone Gemini Hennessy MD Primary Care Provide r Encounter Details Date Type Department Care Team ([facility] st Contact Info) Description 03/26/2024 Orders Only [facility] [address] [place], [place] [phone] Lydia Villagran NP [address] [place] [address] Social History Tobacco Use Types Packs/Day Years [...] Description 04/17/2024 10:00 AM EST Office Visit [facility] [address] [place] [phone] Gemini Hennessy MD [address] [place] [phone] documented as of this encounter Procedures Procedure Name Priority Date/Time Associated Diagnosis Comments CULTURE, URINE, ROUTINE Routine 03/26/2024 11:00 AM EST documented in this encounter Results * Culture, Urine, Routine (03/26/2024 11:00 AM EST) Urine Urine specimen obtained by clean catch procedure / Unknown 03/26/2024 11:00 AM EST 03/26/2024 12:58 PM EST Comment:[facility] - 03/27/2024 11:37 AM EST Urine Culture No growth. Specimen Source: Urine clean catch Lydia Appram [employer] [facility] MICROBIOLOGY - GENERAL ORDE RABLES Final Result [facility] [address] [place] [phone] documented in this encounter Visit Diagnoses Not on filedocumented in this encounter Additional Health Concerns Assessment Noted Time PHQ-9 Depression Total Score: 0 09/12/19 24 2:11 PM EDT documented as of this encounter Care Teams Production Drilling Machine Operator Relationship Specialty Start Date End Date Gemini Hennessy MD [address] [place] [phone] PCP - General Internal Medicine 11/01/22 documented as of this encounter
--- OUTSIDE RECORDS SUMMARY | 2024-03-28 10:35 | XMS_ITS | Encounter Summary ---
Author Organization [employer] Address [address] [facility] 7t [place] [address] Care Team Providers Care Judo Teacher Name Role Phone Gemini Hennessy MD Primary Care Provide r Reason for Visit * Reason Onset Date Comments Lab Orders 03/19/2024 Encounter Details Date Type Department Care Team ([facility] st Contact Info) Description 03/19/2024 Telephone [facility] [address] [place], [place] [phone] Sofía López RN [address] [place] [address] Lab Orders Social History Tobacco Use Types [...] 03/19/2024 12:15 PM EST Received call from [facility] lab reporting the mycoplasma/ureaplasma panel could not [...] Description 04/17/2024 10:00 AM EST Office Visit [facility] [address] [place] [address] Gemini Hennessy MD [address] [place], [place] [phone] documented as of this encounter Visit Diagnoses Not on filedocumented in this encounter Additional Health Concerns Assessment Noted Time PHQ-9 Depression Total Score: 0 09/12/19 24 2:11 PM EDT documented as of this encounter Care Teams Judo Teacher Relationship Specialty Start Date End Date Gemini Hennessy MD [address] [place] [phone] PCP - General Internal Medicine 11/01/22 documented as of this encounter
--- OUTSIDE RECORDS SUMMARY | 2024-03-28 10:35 | XMS_ITS | Clinical Summary ---
Author Organization [employer] Address [address] [place] [address] [address] [place] [address] Care Team Providers Care Telephone Lines Repairer Name Role Phone Gemini Hennessy MD Primary [...] for 10 days. 20 tablet 4 Active Okb-Ej-Hhfxfy 0.18/0.215/0.25 MG-25 MCG tablet TAKE 1 TABLET [...] CLEAN TIP AN REPLACE CAP. 48 mL Active montelukast (Singulair) 10 MG tablet TAKE 1 TABLET BY MOUTH EVERY DAY 90 tablet Active albuterol (Ventolin HFA) 108 (90 Base) MCG/ACT inhaler INHALE 2 PUFFS BY MOUTH EVERY 4 HOURS NEEDED FOR WHEEZING 18 g 3 Active doxycycline (Vibramycin) 100 MG capsule Take 1 capsule by mouth 2 times daily. 4 Active Active Problems Problem Noted Date Diagnosed Date [...] Encounters Date Type Department Care Team Description 03/26/2024 Orders Only [address] [address] Lydia Villagran NP 03/19/[address] [address] Sofía López RN Lab Orders 03/14/2024 Orders Only [address] [address] Lydia Villagran NP 03/13/2024 Orders Only [facility] [address] [place] [phone] Lydia Villagran NP Dysuria (Primary Dx) 03/11/[address] [address] Sofía López, grain combine driver Orders 03/07/2024 2:00 PM EST Office Visit [facility] [address] [place] [phone] Dysuria (Primary Dx); UTI symptoms 03/07/2024 Travel 03/06/[address] [address] Guerita Peña, CHRISTY NTTS f/u 03/06/[address] [address] Gemini Hennessy MD Nurse Triage 03/03/2024 Refill [facility] [address] [place] [phone] Rashel Serrano MD 02/18/2024 10:40 AM EST 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 [address] [address] Diana Pyle FNP 12/31/2023 Telephone [facility] [address] [place] [phone] Galilea Locke, RN Results from Last 3 Months Immunizations Name [...] Description 04/17/2024 10:00 AM EST Office Visit [facility] [address], [place] [phone] Gemini Hennessy MD [address] [place], [place] [phone] Health Maintenance Due Date Last Done Comments [...] URINE, ROUTINE Routine 03/26/2024 11:00 AM EST CANCELLED SEROLOGY Routine 03/14/2024 2: 14 PM [...] Recently Relevant to Health Maintenance Results * Culture, Urine, Routine (03/26/2024 11:00 AM EST) Only the most recent of3 resultswithin the time period is included. Urine Urine specimen obtained by clean catch procedure / Unknown 03/26/2024 11:00 AM EST 03/26/2024 12:58 PM EST Comment:UACC Narrative [facility] - 03/27/2024 11:37 AM EST Urine Culture No growth. Specimen Source: Urine clean catch [facility] TRANSCRIPT EVALUATOR LAB MICROBIOLOGY - GENERAL ORDE RABLES Final Result Performing Organization Address [facility]/ZIP Co de Phone Number [facility] [address] [place] [address] [phone] * Cancelled Serology (03/14/2024 2:14 PM EST) Only the most recent of2 resultswithin the time period is included. Cancelled Serology SEE NOTE [facility] Comment:THE FOLLOWING TESTS WERE CANCELLED: MYCO UREAPL PNLREASON: NO SUITABLE SPECIMEN RECEUVED BY REFERENCE LAB 03/14/2024 2:14 PM EST 03/14/2024 4:15 PM EST [facility] TRANSCRIPT EVALUATOR HISTORICAL/NON ORDERABLE LABS F inal Result Performing Organization Address [facility] Co de Phone Number [facility] [address] [place] [address] [phone] * Mycoplasma/Ureaplasma??Panel (03/14/2024 2:14 PM EST) Sureswab(R), Mycoplasma Hominis, Real-Time Pcr [facility] Comment:TNPTEST NOT PERFORME DNo suitable specimen received.Please review the testrequirements [email or web address] TEST PERFORMED AT:[employer]/[facility] [id number] [facility] [place], [place] [phone] DIRECTOR: PRICILLA DUFFY MD, PHD Mycoplasma Genitalium, rRNA,TMA [facility] U. Parvum DNA [facility] Comment:TNPTEST NOT PERFORME DNo suitable specimen received.Please review the testrequirements [email or web address] TEST PERFORMED AT:[employer]/[facility] [id number] [facility] [place] [phone] DIRECTOR: PRICILLA DUFFY MD, PHD U. Urealyticum DNA TNP [facility] Urine (Urine, Random) 03/14/2024 2:14 PM EST 03/14/2024 4:15 PM EST [facility] LAB MICROBIOLOGY - GENERAL ORDE RABLES Final Result [facility] [address] [place] [phone] * (ABNORMAL) POCT urinalysis dipstick manually resulted [...] UA OK Urine 03/07/2024 1:16 PM EST [facility] TRANSCRIPT EVALUATOR POINT OF CARE TEST ENTER/EDIT O RDERABLES Final Result * (ABNORMAL) Urinalysis Complete (03/07/2024 12:00 AM EST) Color Urine Yellow [facility] Appearance Urine Clear [facility] PH 5.5 5.0 - 9.0 [facility] Glucose Urine UA Negative Negative mg/dL [facility] Urine Blood Negative Negative [facility] Specific Colstrip - Urine 1.015 1.005 - 1.025 [facility] Urine Protein Negative Neg-Trace mg/dL [facility] Urine Ketones Negative Negative mg/dL [facility] Nitrite Urine Negative Negative [facility] Leukocyte Esterase Urine Small (1+)(A) Negative [facility] RBC Urine 0-2 0 - 2 /HPF [facility] Urine WBC 6-10(A) 0 - 5 /HPF [facility] Urine Squamous Epithelial Cell 0-2 0 - 2 /HPF [facility] Urine Bacteria 1+ None Seen [facility] Hyaline Casts, Urine 0-2 0 - 2 /LPF [facility] Urine Urine specimen obtained by clean catch procedure / Unknown 03/07/2024 03/07/2024 Lydia Villagran TRANSCRIPT EVALUATOR LAB URINE ORDERABLES Final Resu lt Performing Organization Address [facility] Co de Phone Number [facility] [address] [place] [address] [phone] * Hepatitis C Antibody with Reflex to HCV, RNA, Quantitative, Real-Time PCR (02/18/2024 11:11 AM EST) Hepatitis C Antibody Nonreactive Nonreactive [facility] Comment:Antibodies to HCV no t detected; does not exclude early acuteHCV infection. Blood Venous blood specimen / Unknown 02/18/2024 11:11 AM EST 02/18/2024 1:18 PM EST Rashel Serrano MD LAB BLOOD ORDERABLES Final Resul t Performing Organization Address [facility] Co de Phone Number [facility] [address] [place] [address] [phone] * Chlamydia/N. Gonorrhoeae RNA, TMA, Urogenitial (02/18/2024 11:11 AM EST) CT PCR NOT DETECTED Not Detect. [facility] Comment:A not detected test result [...] psychologicalconsequences. NG PCR NOT DETECTED Not Detect. [facility] Comment:A not detected test result [...] AM EST 02/18/2024 1:18 PM EST Narrative [facility] - 02/18/2024 3:04 PM EST Urine Rashel Serrano MD LAB MICROBIOLOGY - GENERAL ORDER CORDELL Final Result [facility] [address] [place] [address] [phone] * Hepatitis B surface antigen, EIA (02/18/2024 11:11 AM EST) Hepatitis B Surface Ag Negative Negative [facility] Blood Venous blood specimen / Unknown 02/18/2024 11:11 AM EST 02/18/2024 1:18 PM EST us Rashel Serrano MD LAB BLOOD ORDERABLES Final Resul t Performing Organization Address City/[facility]/ZIP Co de Phone Number [facility] [address] [place] [address] [phone] * RPR (Monitor) with Reflex to??Titer (02/18/2024 11:11 AM EST) RPR (Monitor) w/Refl Titer NON-REACTI VE NON-REACT JAYDEN [facility] Comment:THIS TEST WAS PERFOR MED AT:[facility] [place] [phone] PANG MD Rapid Plasma Reagin Ab Titer TNP [facility] Blood Venous blood specimen / Unknown 02/18/2024 11:11 AM EST 02/18/2024 1:18 PM EST us Rashel Serrano MD LAB BLOOD ORDERABLES Final Resul t Performing Organization Address [facility] Co de Phone Number [facility] [address] [place] [phone] * HIV-1/2 Antigen and Antibodies, Fourth Generation, with Reflexes (02/18/2024 11:11 AM EST) HIV AB/AG Nonreactive Nonreactive [facility] Comment:HIV-1 p24 Ag and/or HIV-1/HIV-2 Ab not detected.A test result that is nonreactive does not exclude thepossibility of exposure to or infection with HIV-1 and/orHIV-2. Nonreactive results in this assay for individualswith prior exposure to HIV-1 and/or HIV-2 may be due toantigen and antibody levels that are below the limit ofdetection of this assay.The VinnyniQ-Sensei HIV Ag/Ab Combo assay result andsupplemental assay results should be interpreted inconjunction with the patient's clinical presentation,history and other laboratory results. If the results areinconsistent with clinical evidence, additional testing issuggested to confirm the result. Blood Venous blood specimen / Unknown 02/18/2024 11:11 AM EST 02/18/2024 1:18 PM EST us Rashel Serrano MD LAB BLOOD ORDERABLES Final Resul t Performing Organization Address [facility] Co de Phone Number [facility] [address] [place] [phone] * Hepatitis B Surface Antibody, Qualitative (02/18/2024 11:11 AM EST) Pathologist [facility] ~Hepatitis B Surface Antibody NONREACTIVE Nonreactive [facility] Comment:Nonreactive: < 8.00 mIU/mL Blood Venous blood specimen / Unknown 02/18/2024 11:11 AM EST 02/18/2024 1:18 PM EST us Rashel Serrano MD LAB BLOOD ORDERABLES Final Resul t Performing Organization Address [facility] Co de Phone Number [facility] [address] [place] [phone] * POCT Urine (02/18/2024 11:01 AM EST) Pathologist [facility] Preg Test, Ur Negative Negative, Indeterminate, None Detected, Invalid, Specimen unsatisfactory for evaluation, Weakly Positive Urine 02/18/2024 11:0 1 AM EST us Rashel Serrano MD POINT OF CARE TEST ENTER/EDIT OR DERABLES Final Result * Bacterial Vaginosis Panel (02/18/2024 10:19 AM EST) Pathologist [facility] TRICHOMONAS VAGINALIS DETECTION BY PCR NOT DETECTED Not Detect [facility] BACTERIAL VAGINOSIS DETECTION BY PCR NEGATIVE Negative [facility] Comment:The BV organism targ ets [...] DETECTION BY PCR NOT DETECTED Not Detect [facility] Ivette glab krusei PCR NOT DETECTED Not Detect [facility] Swab Vaginal structure / Unknown 02/18/2024 10:19 AM EST 02/18/2024 5:53 PM EST us Rashel Name MD LAB MICROBIOLOGY - GENERAL ORDER CORDELL Final Result [facility] [address] [place] [address] [phone] * (ABNORMAL) Pap Smear (12/10/2023 10:46 AM EDT) SOURCE: SEE NOTE [facility] Comment:None given Report Status: [facility] Clinical Information: SEE NOTE [facility] Comment:None given LMP: SEE NOTE [facility] Comment:NONE GIVEN Prev. PAP: SEE NOTE [facility] Comment:NONE GIVEN Prev. BX: SEE NOTE [facility] Comment:NONE GIVEN Statement Of Adequacy: SEE NOTE [facility] Comment:Satisfactory for dulce maria luation.Endocervical/transformation zone componentpresent. General Categorization: SEE NOTE(A) [facility] Comment:Cytology Results: Ep ithelial Cell Abnormality Interpretation/Resul t: SEE NOTE(A) [facility] Comment:Low Grade Squamous I ntraepithelial Lesion (LSIL) Cytology Comment SEE NOTE [facility] Comment:This case could not be evaluated with computerassisted technology. The slide was manuallyscreened according to routine procedures. Director Of Dementia Operations: SEE NOTE [facility] Comment:MRS, CT(ASCP)CT scre ening location: [facility] [address] [address]Tkcdd preparation performed at: [facility] [address] CLIA No. [id number] Review Director Of Dementia Operations: [facility] Pathologist SEE NOTE [facility] Comment:Krishna Ovalle M.D.,Robby contreras Certified in Anatomic Pathology, Clinical Pathology andCytopathology (electronic signature) PAP Infection [facility] See Note SEE NOTE [facility] Comment:EXPLANATORY NOTE:The Pap is a screening test for cervical cancer. It isnot a diagnostic test and is subject to false negativeand false positive results. It is most reliable when asatisfactory sample, regularly obtained, is submittedwith relevant clinical findings and history, and whenthe Pap result is evaluated along with historic andcurrent clinical information.THIS TEST WAS PERFORMED AT:[email or web address] [place] [phone] PANG MD Pap Vial Vaginal structure / Unknown 12/10/2023 10:46 AM EDT 12/10/2023 5:31 PM EDT Narrative [facility] - 12/21/2023 10:34 AM EDT SEE SCANNED RESULTS IN EMRVAGINA us Paola Juares CNM LAB PATHOLOGY ORDERABLES Final Result [facility] [address] [place] [address] [phone] from Last 3 Months or Most Recently Relevant to Health Maintenance Insurance [facility] C3 HSN PARTIAL Care Teams Telephone Lines Repairer Relationship Specialty Start Date End Date Gemini Hennessy MD [address] [place] [phone] PCP - General Internal Medicine 11/01/22
[2024-04-01 18:48] LABS: Mycoplasma genitalium RNA Not Detected (Not Detected); Mycoplasma hominis PCR Not Detected (Not Detected); Ureaplasma parvum PCR Not Detected (Not Detected); Ureaplasma urealyticum PCR Not Detected (Not Detected)
== END 2024-03-28 09:49 | disposition home or self-care (01) ==
LOC: HO.HHCL 09:48
PROVIDERS: Visit Provider Nurse Practitioner
DX: R30.0 Dysuria (principal)
CPT/HCPCS: 87563; 87798

== ENCOUNTER 2024-05-03 13:37 | Outpatient (REF) | payer OTHER, MEDICAID, SELFPAY ==
[2024-05-03 13:46] LABS: Appearance Urine Cloudy; Color Urine Yellow; Glucose Urine UA Negative (Negative); Leukocyte Esterase Urine Small (1+) (Negative); Nitrite Urine Negative (Negative); PH 5.5 (5.0-9.0); Specific Gravity - Urine 1.025 (1.005-1.025); UMIC TRIGGER UACC YES; Urine Blood Negative (Negative); Urine Ketones Trace mg/dL (Negative); Urine Protein Trace mg/dL (Neg-Trace)
[2024-05-03 13:54] LABS: Bacteria Urine 3+ (None Seen); RBC Urine 0-2 /HPF (0-2); UACC Culture Trigger YES
[2024-05-03 15:08] LABS: Bacterial Vaginosis PCR NEGATIVE (Negative); Candida Group PCR NOT DETECTED (Not Detect); Candida glab krusei PCR NOT DETECTED (Not Detect); Trichomonas vaginalis PCR NOT DETECTED (Not Detect)
[2024-05-03 15:37] LABS: CT PCR NOT DETECTED (Not Detect.); NG PCR NOT DETECTED (Not Detect.)
[2024-05-07 08:38] LABS: Mycoplasma genitalium NAA Not Detected (Not Detected)
== END 2024-05-03 13:38 | disposition home or self-care (01) ==
LOC: HO.HHCLNP 13:37
PROVIDERS: Visit Provider Internal Medicine Geriatric Medicine
DX: N89.8 Other specified noninflammatory disorders of vagina (principal); R10.2 Pelvic and perineal pain
CPT/HCPCS: 81001; 81515; 87086; 87491; 87563; 87591